=== PATIENT | male | born 1940 | race Caucasian/White ===

== ENCOUNTER 2016-10-15 16:11 | Inpatient (IN) ==
[2016-10-15] MEDS ORDERED: Aspirin 81 MG TAB.CHEW PO ONE (16:33)
--- NOTE | 2016-10-15 17:05 | Emergency Department Note ---
Disposition Clinical Impression: NSTEMI (non-ST elevated myocardial infarction), Elevated troponin Chest pain Qualifiers: Chest pain type: unspecified Qualified Code(s): R07.9 - Chest pain, unspecified Atrial fibrillation Qualifiers: Atrial fibrillation type: chronic Qualified Code(s): I48.2 - Chronic atrial fibrillation Disposition: Admitted As Inpatient Condition: Fair Time of Disposition: 19:41 Arrhythmia/Palpitations HPI - General Chief Complaint: ED Chest Pain Stated Complaint: afib RVR Time Seen by Provider: 10/15/16 16:28 Source: patient, EMS Mode of arrival: EMS Limitations: physical limitation Nursing Notes Reviewed: Yes Vital Signs Reviewed: Yes - History of Present Illness HPI Narrative: 76-year-old male history of esophageal cancer, hypertension, paroxysmal atrial fibrillation, and CAD status post PCI x2 () presents to the ED with chest pain and shortness of breath. Reports around 1300 yesterday he began to experience sharp chest pain with racing of the heart. Wasn't until today it became more severe that he called his friend who called the squad. He was seen and evaluated at [facility] complaining of heart palpitations with right- sided chest pain. He presented atrial fibrillation with rapid ventricular response. He presented tachycardic 126 with the elevated troponin 1.69. He is currently sinus rhythm with HR 70s. He is awake alert and oriented to person place and time. Denies any recent illness, fever, cough, nausea, vomiting. He was recently diagnosed with esophageal cancer on and had a port placed where he began his 1st chemo therapy session on Saturday. Dr. Burns is his oncologist. Reports a history of left knee replacement April 2016 in the left hip replacement in 2014. Denies any history of blood clots. He only takes a baby aspirin and denies any anticoagulants. Pt Subjective Complaint: rapid heart beat - Related Data Home Medications Medication Instructions Recorded Confirmed Albuterol Sulfate [Albuterol 2 puff IH QID PRN 09/18/16 10/15/16 Inhaler] Aspirin Enteric Coated [Aspirin EC] 81 mg PO DAILY 09/18/16 10/15/16 Bisacodyl [Laxative] 5 mg PO HS 09/18/16 10/15/16 Gabapentin [Neurontin] 800 mg PO TID 09/18/16 10/15/16 Hydrochlorothiazide 12.5 mg PO DAILY 09/18/16 10/15/16 Hydrophilic Cream [Basle] 1 appl TP AD 09/18/16 10/15/16 Ketotifen Fumarate 1 drop OP BID 09/18/16 10/15/16 Lisinopril [Zestril] 40 mg PO DAILY 09/18/16 10/15/16 Loratadine [Allergy Relief] 10 mg PO DAILY 09/18/16 10/15/16 Mirtazapine [Remeron] 15 mg PO QPM 09/18/16 10/15/16 Multivitamin [Multivitamins] 1 each PO DAILY 09/18/16 10/15/16 Peg 400/Hypromellose/Glycerin 1 drop BOTH EYES TID 09/18/16 10/15/16 [Visine Tired Eye Relief Drop] Sennosides [Senokot] 17.2 tab PO BID 09/18/16 10/15/16 Simethicone [Bicarsim] 160 mg PO TID PRN 09/18/16 10/15/16 Lactose-Reduced Food [Ensure 1 bottle PO BID 10/15/16 10/15/16 Liquid] Previous Rx's Medication Instructions Recorded Budesonide/Formoterol 160/4.5 2 puff IH BIDR #1 hfa.aer.ad 09/18/16 [Symbicort 160/4.5] Tamsulosin HCl [Flomax] 0.4 mg PO HS #30 cap.er.24h 09/18/16 Citalopram Hydrobromide [Celexa] 20 mg PO HS #30 tab 09/27/16 Zolpidem [Ambien] 5 mg PO HS #30 tablet 10/08/16 Allergies Allergy/AdvReac Type Severity Reaction Status Date / Time baclofen Allergy Rash Verified 10/15/16 16:12 Diclofenac Allergy Itching Verified 10/15/16 16:12 ibuprofen AdvReac Nausea Verified 10/15/16 16:12 All systems ED: reviewed and negative except as stated. Constitutional: Denies: fever, chills Cardiovascular: Reports: chest pain, palpitations, dyspnea on exertion Respiratory: Reports: dyspnea. Denies: cough, hemoptysis Gastrointestinal: Denies: abdominal pain, nausea, vomiting, diarrhea Genitourinary: Denies: urgency, dysuria Musculoskeletal: Denies: back pain Integumentary: Denies: rash, abrasion Neurological: Denies: headache Past Medical History - Past Medical History Attestation: Yes The following information was validated with the patient. Source: patient Medical history: Reports: arthritis, atrial fibrillation, COPD, coronary artery disease, glaucoma, hepatitis, hypertension, myocardial infarction, TIA Surgical history: Reports: carotid endarterectomy, hip replacement, knee replacement Psychiatric history: Reports: no psych history - Social History Smoking Status: Current some day smoker Smokeless Tobacco Status: No Alcohol use: Reports: none Drug use: Reports: none Physical Exam - General Limitations: physical limitation General appearance: alert, in no apparent distress, cachectic - Head Head exam: atraumatic, normocephalic, normal inspection - Eye Eye exam: Present: normal appearance, PERRL, EOMI - ENT ENT exam: normal exam, normal oropharynx, mucous membranes moist - Neck Neck exam: Present: normal inspection, full ROM, trachea midline - Chest Chest inspection: Present: normal inspection, symmetric chest wall rise, other ( Port in the right chest wall, scar is healing well without any discharge or erythema) - Respiratory Respiratory exam: Present: normal lung sounds bilaterally. Absent: respiratory distress, wheezes - Cardiovascular Cardiovascular exam: Present: normal rhythm, irregular rhythm, normal heart sounds - Abdominal Exam Abdominal exam: Present: soft, Non-Tender, normal bowel sounds. Absent: tenderness, distention, guarding, rebound, rigidity - Extremities Exam Extremities exam: Present: normal inspection, full ROM, normal capillary refill. Absent: tenderness, pedal edema, calf tenderness - Back Exam Back exam: Present: normal inspection, full ROM. Absent: tenderness, CVA tenderness (R), CVA tenderness (L) - Neurological Exam Neurological exam: Present: alert, oriented X3 - Psychiatric Psychiatric exam: Present: normal affect, normal mood - Skin Skin exam: Present: warm, dry, intact, normal color Course Course Narrative: 76-year-old male history of atrial fibrillation not on anticoagulants as well as history of CAD status post 2 PCI presents to the ED from the [facility] for chest pain and atrial fibrillation with RVR. Upon initial presentation he has converted spontaneously to sinus rhythm with occasional supra ventricular premature complexes and a possible right ventricular conduction delay. His initial troponin was reported 1.69. He appears on some mild discomfort and reports shortness of breath. He has a history of esophageal cancer and recently underwent chemotherapy with Dr. Denis العلي afebrile here. Heart rate in the 70s. Chest pain workup initiated. He would likely needed admission. - Reevaluation(s) Reevaluation #1: His troponin is elevated 2.05. Continues out some chest discomfort. Aspirin is given. Posterior EKG performed without any significant ST changes. He continues to remain a sinus rhythm. Will consult with interventional cardiology regarding elevation in troponin and deeply inverted T waves and ST depression. Impression is chest pain, NSTEMI, elevated troponin, atrial fibrillation c RVR, history of CAD, esophageal cancer. Patient is in agreement with plan. Time: 18:50 - Consultations Consultation #1: My attending Dr. Silver spoke to Dr. Cutler interventional radiology regarding elevation in his troponin. flue dust laborer not initiated. Recommend heparin drip and admission for elevated troponin and chest pain R/O ACS. Time: 19:00 Consultation #2: Spoke with on-call hospitalist valerio Vergara to admit for chest pain, elevated troponin, NSTEMI, atrial fibrillation. No further orders at this time Time: 19:42 Vital Signs Temperature 98.5 F 10/15/16 16:15 Pulse Rate 67 10/15/16 16:15 Respiratory Rate 22 10/15/16 16:15 Blood Pressure 153/81 10/15/16 16:15 O2 Sat by Pulse Oximetry 96 10/15/16 16:15 Temperature 98.4 F 10/15/16 22:58 Pulse Rate 58 10/15/16 22:58 Respiratory Rate 16 10/15/16 22:58 Blood Pressure 155/83 10/15/16 22:58 O2 Sat by Pulse Oximetry 96 10/15/16 22:58 Oxygen Delivery Oxygen Delivery Nasal Cannula Arrhythmia/Palpitations - Medical Records Medical records reviewed: Yes I reviewed the patient's medical records. - Lab Data Lab results reviewed: Yes I reviewed the patient's lab results. Result diagrams: 10/15/16 17:27 10/15/16 17:27 Lab Results 10/15/16 10/15/16 10/15/16 Range/Units 17:27 17:27 17:27 WBC (4.3-11.1) K/mcL RBC (4.19-5.50) M/mcL Hgb (12.9-16.9) g/dL Hct (37.5-50.1) % MCV (83.0-100.0) fL MCH (28.0-33.3) pg MCHC (31.6-35.5) g/dL RDW (11.5-14.5) % Plt Count (140-400) K/mcL MPV (9.4-12.4) fL Immature Gran % (0-4) % Seg Neutrophils % % Lymphocytes % % Monocytes % % Eosinophils % % Basophils % % Neutrophils # (1.6-8.9) K/mcL Lymphocytes # (0.6-4.6) K/mcL Monocytes # (0.0-1.3) K/mcL Eosinophils # (0.0-0.6) K/mcL Basophils # (0.0-0.2) K/mcL Immature Plt Fraction (1.1-6.1) % PT 12.2 H (9.4-12.1) Seconds INR 1.1 APTT 25.8 L (26.0-36.0) Seconds Sodium (136-145) mEq/L Potassium (3.5-4.5) mEq/L Chloride (98-109) mEq/L Carbon Dioxide (19-29) mEq/L BUN (8-26) mg/dL Creatinine (0.72-1.25) mg/dL Est GFR ( Amer) (> 60) Est GFR (Non-Af Amer) (> 60) BUN/Creatinine Ratio (6-26) Glucose (70-99) mg/dL Calculated Osmolality (280-300) Calcium (8.6-10.8) mg/dL Total Bilirubin 1.1 (0.2-1.2) mg/dL Direct Bilirubin 0.4 (0.0-0.5) mg/dL Indirect Bilirubin 0.7 (0.0-1.2) mg/dL AST 67 H (5-34) Units/L ALT 55 (0-55) Units/L Alkaline Phosphatase 58 (38-126) Units/L Troponin I (0-0.03) ng/mL B-Natriuretic Peptide 888 H (0-100) pg/mL Serum Total Protein 7.0 (6.0-8.3) g/dL Albumin 3.0 L (3.5-5.0) g/dL Globulin 4.0 H (2.4-3.5) g/dL Albumin/Globulin Ratio 0.8 L (1.1-2.2) Lipase (8-78) Units/L 10/15/16 10/15/16 10/15/16 Range/Units 17:27 17:27 17:27 WBC 8.5 (4.3-11.1) K/mcL RBC 4.27 (4.19-5.50) M/mcL Hgb 14.4 (12.9-16.9) g/dL Hct 40.2 (37.5-50.1) % MCV 94.1 (83.0-100.0) fL MCH 33.7 H (28.0-33.3) pg MCHC 35.8 H (31.6-35.5) g/dL RDW 15.5 H (11.5-14.5) % Plt Count 84 L (140-400) K/mcL MPV 13.1 H (9.4-12.4) fL Immature Gran % 0.5 (0-4) % Seg Neutrophils % 57.2 % Lymphocytes % 33.2 % Monocytes % 8.9 % Eosinophils % 0.1 % Basophils % 0.1 % Neutrophils # 4.9 (1.6-8.9) K/mcL Lymphocytes # 2.8 (0.6-4.6) K/mcL Monocytes # 0.8 (0.0-1.3) K/mcL Eosinophils # 0.0 (0.0-0.6) K/mcL Basophils # 0.0 (0.0-0.2) K/mcL Immature Plt Fraction 18.6 H (1.1-6.1) % PT (9.4-12.1) Seconds INR APTT (26.0-36.0) Seconds Sodium 126 L (136-145) mEq/L Potassium 4.0 (3.5-4.5) mEq/L Chloride 99 (98-109) mEq/L Carbon Dioxide 22 (19-29) mEq/L BUN 14 (8-26) mg/dL Creatinine 0.99 (0.72-1.25) mg/dL Est GFR ( Amer) > 60 (> 60) Est GFR (Non-Af Amer) > 60 (> 60) BUN/Creatinine Ratio 14 (6-26) Glucose 106 H (70-99) mg/dL Calculated Osmolality 263 L (280-300) Calcium 8.9 (8.6-10.8) mg/dL Total Bilirubin (0.2-1.2) mg/dL Direct Bilirubin (0.0-0.5) mg/dL Indirect Bilirubin (0.0-1.2) mg/dL AST (5-34) Units/L ALT (0-55) Units/L Alkaline Phosphatase (38-126) Units/L Troponin I (0-0.03) ng/mL B-Natriuretic Peptide (0-100) pg/mL Serum Total Protein (6.0-8.3) g/dL Albumin (3.5-5.0) g/dL Globulin (2.4-3.5) g/dL Albumin/Globulin Ratio (1.1-2.2) Lipase 79 H (8-78) Units/L 10/15/16 Range/Units 17:27 WBC (4.3-11.1) K/mcL RBC (4.19-5.50) M/mcL Hgb (12.9-16.9) g/dL Hct (37.5-50.1) % MCV (83.0-100.0) fL MCH (28.0-33.3) pg MCHC (31.6-35.5) g/dL RDW (11.5-14.5) % Plt Count (140-400) K/mcL MPV (9.4-12.4) fL Immature Gran % (0-4) % Seg Neutrophils % % Lymphocytes % % Monocytes % % Eosinophils % % Basophils % % Neutrophils # (1.6-8.9) K/mcL Lymphocytes # (0.6-4.6) K/mcL Monocytes # (0.0-1.3) K/mcL Eosinophils # (0.0-0.6) K/mcL Basophils # (0.0-0.2) K/mcL Immature Plt Fraction (1.1-6.1) % PT (9.4-12.1) Seconds INR APTT (26.0-36.0) Seconds Sodium (136-145) mEq/L Potassium (3.5-4.5) mEq/L Chloride (98-109) mEq/L Carbon Dioxide (19-29) mEq/L BUN (8-26) mg/dL Creatinine (0.72-1.25) mg/dL Est GFR ( Amer) (> 60) Est GFR (Non-Af Amer) (> 60) BUN/Creatinine Ratio (6-26) Glucose (70-99) mg/dL Calculated Osmolality (280-300) Calcium (8.6-10.8) mg/dL Total Bilirubin (0.2-1.2) mg/dL Direct Bilirubin (0.0-0.5) mg/dL Indirect Bilirubin (0.0-1.2) mg/dL AST (5-34) Units/L ALT (0-55) Units/L Alkaline Phosphatase (38-126) Units/L Troponin I 2.05 H* (0-0.03) ng/mL B-Natriuretic Peptide (0-100) pg/mL Serum Total Protein (6.0-8.3) g/dL Albumin (3.5-5.0) g/dL Globulin (2.4-3.5) g/dL Albumin/Globulin Ratio (1.1-2.2) Lipase (8-78) Units/L - Radiology Data Radiology results reviewed: Yes I reviewed the patient's radiology results. - EKG Data EKG attestation: Yes I reviewed and interpreted this EKG. EKG results narrative: EKG performed 1619, reveals sinus rhythm with frequent supraventricular premature complexes 63 bpm and a possible right ventricular conduction delay. There are significant ST depressions in V4 V5 with inversion of the T waves throughout the precordial leads. This is similar to old EKG performed 2013 which has a consistent finding of ST depression T-wave inversion. Repeat EKG with posterior leads performed [address] not reveal any ST elevation. Attestation Statement - Attestation Attestation: 76-year-old male presents for concerns of atrial fibrillation with RVR and an elevated troponin. Patient was initially evaluated at the [facility] found to have an elevated of his troponin to 1.68. Upon arrival to the emergency department the patient's heart rate converted to a sinus rhythm and his chest pain resolved. Vital signs stable in the emergency department. Patient had a repeat troponin which was elevated to 2.05. Patient's ECG showed T-wave inversions in the anterior lateral leads however this is unchanged from previous and is likely due to the patient's LVH. I contacted Dr. Cutler the interventional list who reviewed the ECG and agreed with the interpretation. Ultrasound recommended heparin, which was ordered after with him. Patient was comfortable with the plan for admission to the hospital for continuation of care.
[2016-10-15 17:36] LABS: Eosinophils % 0.1 %; Hemoglobin 14.4 g/dL (12.9-16.9); Red Cell Distribution Width 15.5 % (11.5-14.5)
[2016-10-15 17:38] LABS: Basophils % 0.1 %; Hematocrit 40.2 % (37.5-50.1); Immature Granulocytes % 0.5 % (0-4); Immature Platelets 18.6 % (1.1-6.1); Lymphocytes # 2.8 K/mcL (0.6-4.6); Lymphocytes % 33.2 %; Mean Corpuscular HGB Conc 35.8 g/dL (31.6-35.5); Mean Corpuscular Hemoglobin 33.7 pg (28.0-33.3); Mean Corpuscular Volume 94.1 fL (83.0-100.0); Mean Platelet Volume 13.1 fL (9.4-12.4); Monocytes # 0.8 K/mcL (0.0-1.3); Monocytes % 8.9 %; Neutrophils # 4.9 K/mcL (1.6-8.9); Platelet Count 84 K/mcL (140-400); Red Blood Count 4.27 M/mcL (4.19-5.50); Segmented Neutrophils % 57.2 %
[2016-10-15 17:42] LABS: INR 1.1; Prothrombin Time 12.2 Seconds (9.4-12.1)
[2016-10-15 17:45] LABS: Activated Partial Thrombo Time 25.8 Seconds (26.0-36.0)
[2016-10-15 17:50] LABS: BUN/Creatinine Ratio 14 (6-26); Blood Urea Nitrogen 14 mg/dL (8-26); Calcium 8.9 mg/dL (8.6-10.8); Carbon Dioxide 22 mEq/L (19-29); Chloride 99 mEq/L (98-109); Glucose 106 mg/dL (70-99); Osmolality,Calculated 263 (280-300); eGFR For African Americans > 60 (> 60); eGFR For Non-African Americans > 60 (> 60)
[2016-10-15 17:51] LABS: Albumin/Globulin Ratio 0.8 (1.1-2.2); Bilirubin,Direct 0.4 mg/dL (0.0-0.5); Bilirubin,Indirect 0.7 mg/dL (0.0-1.2); Bilirubin,Total 1.1 mg/dL (0.2-1.2)
[2016-10-15 17:52] LABS: Sodium 126 mEq/L (136-145)
[2016-10-15] MEDS ORDERED: *HR* Heparin 5,000 UNIT/ML VIAL IVP ONE (18:52)
[2016-10-15] MEDS ORDERED: *HR* Heparin 5,000 UNIT/ML VIAL IVP PRN ×2 (18:52)
[2016-10-15] MEDS ORDERED: Heparin 25,000 UNIT/500 ML D5W 25,000 UNIT/500 ML MLS IVC SCH (19:00)
[2016-10-16 00:45] LABS: Bilirubin,Urine Negative (Negative); Blood,Urine Negative (Negative); Clarity,Urine Clear (Clear); Color,Urine Yellow (Yellow); Glucose,Urine (UA) Normal (Normal); Ketones,Urine Negative (Negative); Leukocyte Esterase,Urine Negative (Negative); Nitrite,Urine Negative (Negative); PH,Urine 7.5 pH Units (5.0-8.0); Protein,Urine 30 mg/dL (Neg-Trace); Specific Gravity,Urine 1.015 (1.010-1.025); Urobilinogen,Urine Normal (Normal)
[2016-10-16 00:48] LABS: Bacteria,Urine None Seen per hpf (None-Few); Hyaline Casts,Urine None Seen per lpf (None-Few); RBC,Urine 0-3 per hpf (0-3); Squamous Epithelial Cell,Urine Moderate per lpf (None-Few); WBC,Urine 0-3 per hpf (0-3)
[2016-10-16] MEDS ORDERED: *HR* Morphine 2 MG/ML SYRINGE IVP PRN ×2 (01:37→02:00)
[2016-10-16] MEDS ORDERED: Nitroglycerin 25 MG/250 ML INFUS..BTL IVC SCH (01:45)
--- NOTE | 2016-10-16 01:52 | Internal Med History&Physical ---
<Angie German Linn - Last Filed: 10/16/16 01:43> Date of Encounter: 10/16/16 Time of Encounter: 01:43 Assessment and Plan (1) NSTEMI (non-ST elevated myocardial infarction) Current visit: Yes Status: Acute heparin drip nitro drip titrate for pain, keeping systolic >110 morphine for pain trop 2.05, will trend repeat PT/INR check Mg NPO consult to cardiology (2) Atrial fibrillation Current visit: Yes Status: Acute s/p ablation in 2004 paroxysmal supportive care Qualifiers: Atrial fibrillation type: chronic Qualified Code(s): I48.2 - Chronic atrial fibrillation (3) Esophageal cancer Current visit: Yes Status: Acute Qualifiers: Malignant neoplasm of esophagus location: unspecified location Qualified Code(s): C15.9 - Malignant neoplasm of esophagus, unspecified (4) Hyponatremia Current visit: Yes Status: Acute Na126 osmo: 263 chronic, close to baseline likely secondary to cancer (5) Elevated troponin Current visit: Yes Status: Acute 2.05, will trend (6) Chest pain Current visit: Yes Status: Acute Qualifiers: Chest pain type: unspecified Qualified Code(s): R07.9 - Chest pain, unspecified (7) HTN (hypertension) Current visit: Yes Status: Acute (8) CAD (coronary artery disease) Current visit: Yes Status: Acute (9) CVA (cerebral vascular accident) Current visit: Yes Status: Acute Internal Medicine - H&P: HPI Chief complaint: chest pain Admitted From: Home Plans for Post Hospital Care: Home History of present illness: Mr. Post is a 76 year old male presents with chest pain. PMHx of paroxysmal afib, CVA, CHF, PCIx2, HTN,CAD, recently diagnosed with esophageal cancer last week with port placement and started on chemotherapy saturday. Pt c/o severe 10/ 10 pressure like chest pain with radiation to left shoulder and shortness of breath. Pt states this started saturday afternoon around 1pm while at home. Pt thought pain would improve on its own, was relieved by nothing and was worse saturday morning. At that time pt measured BP and HR at home. He states his blood pressure was low and heart rate was high at that time and was directed to go to the ER. Pt states he is still currently having some CP and nausea. Pt denies syncopal episode, trauma/falls, headache, change in vision SOB, vomiting , numbness/tingling, weakness or loss off function. Past Med Surg Social Fam HX - Past Medical History Medical history: arthritis, atrial fibrillation, CHF, COPD, coronary artery disease, CVA, glaucoma, hepatitis, hypertension, myocardial infarction, TIA Psychiatric history: no psych history - Past Surgical History Surgical History: carotid endarterectomy, hip replacement, knee replacement - Social History Smoking Status: Former smoker (quite smoking about one week ago) Packs per day: 1ppd Smokeless Tobacco Status: No Alcohol use: none Drug use: none Occupational status: retired Current living situation: Home - Independent Activity Level: Uses cane/walker Recent Out of Country Travel Within the Last 8 Weeks: No - Family History Father Name: Meliza Post Age at : 61 Cause of : heart attack Hx Family Cardiac Disorders: Yes Internal Medicine - H&P: Meds Albuterol Sulfate [Albuterol Inhaler] 2 puff IH QID PRN 09/18/16 [History] Aspirin Enteric Coated [Aspirin EC] 81 mg PO DAILY 09/18/16 [History] Bisacodyl [Laxative] 5 mg PO HS 09/18/16 [History] Budesonide/Formoterol 160/4.5 [Symbicort 160/4.5] 2 puff IH BIDR #1 hfa.aer.ad 09/18/16 [Rx] Gabapentin [Neurontin] 800 mg PO TID 09/18/16 [History] Hydrochlorothiazide 12.5 mg PO DAILY 09/18/16 [History] Hydrophilic Cream [Basle] 1 appl TP AD 09/18/16 [History] Ketotifen Fumarate 1 drop OP BID 09/18/16 [History] Lisinopril [Zestril] 40 mg PO DAILY 09/18/16 [History] Loratadine [Allergy Relief] 10 mg PO DAILY 09/18/16 [History] Mirtazapine [Remeron] 15 mg PO QPM 09/18/16 [History] Multivitamin [Multivitamins] 1 each PO DAILY 09/18/16 [History] Peg 400/Hypromellose/Glycerin [Visine Tired Eye Relief Drop] 1 drop BOTH EYES TID 09/18/16 [History] Sennosides [Senokot] 17.2 tab PO BID 09/18/16 [History] Simethicone [Bicarsim] 160 mg PO TID PRN 09/18/16 [History] Tamsulosin HCl [Flomax] 0.4 mg PO HS #30 cap.er.24h 09/18/16 [Rx] Citalopram Hydrobromide [Celexa] 20 mg PO HS #30 tab 09/27/16 [Rx] Zolpidem [Ambien] 5 mg PO HS #30 tablet 10/08/16 [Rx] Lactose-Reduced Food [Ensure Liquid] 1 bottle PO BID 10/15/16 [History] Allergies baclofen Allergy (Verified 10/15/16 16:12) Rash Diclofenac Allergy (Verified 10/15/16 16:12) Itching ibuprofen Adverse Reaction (Verified 10/15/16 16:12) Nausea All Systems PM: A 10-system review of systems was performed and is negative for pertinent findings except as documented above in the HPI. - Constitutional Constitutional: no chills, no excessive sweating, no fatigue, no falls, no night sweats, no weakness - EENT Eyes: no blurry vision, no change in vision, no loss of vision - Cardiovascular Cardiovascular ROS IM: chest pain, dyspnea, dyspnea on exertion, irregular heart rhythm, palpitations, no diaphoresis, no edema, no lightheadedness, no syncope - Respiratory Respiratory: no cough, no hemoptysis, no pain on inspiration - Gastrointestinal Gastrointestinal: belching, nausea, no hematemesis, no vomiting - Genitourinary Genitourinary ROS male: as per HPI - Musculoskeletal Musculoskeletal ROS IM: no muscle weakness, no myalgias, no numbness, no tingling - Integumentary Integumentary IM: as per HPI - Neurological Neurological ROS: no confusion, no dizziness, no focal weakness, no frequent falls, no headache(s), no loss of vision, no numbness, no tingling - Endocrine Endocrine IM: as per HPI - Hematologic/Lymphatic Hematologic/Lymphatic: as per HPI - Allergic/Immunologic Allergic/Immunologic: as per HPI - Constitutional Vitals: Temp Pulse Resp BP Pulse Ox 98.4 F 58 16 155/83 96 10/15/16 22:58 10/15/16 22:58 10/15/16 22:58 10/15/16 22:58 10/15/16 22:58 General appearance: Present: cachectic, A&O X 3, no acute distress, answers questions appropriately - Head Head exam: Present: atraumatic, normocephalic - Eye Eye exam: Present: EOMI, PERRL, conjuntiva pink, sclera anicteric Pupils: Present: normal accommodation - ENT ENT exam: Present: mucous membranes moist - Neck Neck exam general surgery: Present: full ROM - Respiratory Respiratory exam: Present: CTAB. Absent: chest wall tenderness, rales, respiratory distress, rhonchi, wheezes, tachypnea - Cardiovascular Cardiovascular exam: Present: irregular rhythm - GI/Abdominal GI/Abdominal exam: Present: normal bowel sounds, soft, no peritoneal signs. Absent: guarding, rebound, rigid - Extremities Exam Extremities exam: Present: normal capillary refill, warm. Absent: calf tenderness, pedal edema Additional comments: irregular radial pulse - Incison Incision: Present: clean and dry, intact Comments: Port site on L chest healing C/D/I - Neurological Exam Neurological exam: Present: CN II-XII intact, oriented X3. Absent: no focal deficits, facial droop, speech deficit - Psychiatric Psychiatric exam: Present: normal affect, normal mood - Skin Skin exam: Present: dry, warm Internal Med - H&P Results - Labs CBC & Chem 7: 10/15/16 17:27 10/15/16 17:27 Labs: Urine 10/16/16 Range/Units 00:01 Urine Color Yellow (Yellow) Urine Clarity Clear (Clear) Urine pH 7.5 (5.0-8.0) pH Units Ur Specific [place] 1.015 (1.010-1.025) Urine Protein 30 H (Neg-Trace) mg/dL Urine Glucose (UA) Normal (Normal) mg/dL <Leo Matson - Last Filed: 10/16/16 03:10> - EENT Nose, mouth and throat: no sinus pressure, no sore throat - Cardiovascular Cardiovascular ROS IM: chest pain, dyspnea, dyspnea on exertion, palpitations, no paroxysmal nocturnal dyspnea - Respiratory Respiratory: no cough, no hemoptysis, no chest congestion - Gastrointestinal Gastrointestinal: no hematemesis, no hematochezia, no melena - Constitutional Vitals: Temp Pulse Resp BP Pulse Ox 98.4 F 58 16 155/83 96 10/15/16 22:58 10/15/16 22:58 10/15/16 22:58 10/15/16 22:58 10/15/16 22:58 General appearance: Present: cooperative, pleasant, no acute distress - Neck Neck exam general surgery: Present: full ROM, supple, trachea midline - Expanded Neck Exam Neck exam: Absent: carotid bruit - Respiratory Respiratory exam: Present: CTAB. Absent: chest wall tenderness, rales, rhonchi , wheezes - Cardiovascular Cardiovascular exam: Present: bradycardia, distant heart sounds, +S1, +S2. Absent: diastolic murmur, JVD, systolic murmur - GI/Abdominal GI/Abdominal exam: Present: soft. Absent: tenderness - Back Exam Back exam: Present: normal inspection. Absent: CVA tenderness (L), CVA tenderness (R) - Neurological Exam Neurological exam: Present: alert, CN II-XII intact, oriented X3, no focal deficits - Skin Skin exam: Present: dry, warm. Absent: rash Internal Med - H&P Results - Labs CBC & Chem 7: 10/15/16 17:27 10/15/16 17:27 Labs: Urine 10/16/16 Range/Units 00:01 Urine Color Yellow (Yellow) Urine Clarity Clear (Clear) Urine pH 7.5 (5.0-8.0) pH Units Ur Specific [place] 1.015 (1.010-1.025) Urine Protein 30 H (Neg-Trace) mg/dL Urine Glucose (UA) Normal (Normal) mg/dL - EKG Data -: EKG Interpreted by Myself EKG shows normal: sinus rhythm - EKG Data Prior EKG available for review: yes When compared to previous EKG: there are significant changes EKG comments: 10/16/16 03:03 Sinus rhythm with PAC's; high voltage in lateral leads with flipped T-waves and ST-T depression - Diagnostic Studies Chest x-ray Status: image reviewed by me (negative) - Attending Attestation I discussed the patient [place], PMH, ROS, lab data, and exam findings with Dr. German. I then saw and examined the patient independently as well. Patient confirms the history provided by Dr. German. On my questioning, he confirms that his CP was similar to that of his previous [place]. He has minimal CP now. He denies any pleuritic CP or hemoptysis. He will be treated with NTG gtt, heparin gtt, and Morphine PRN CP. We'll keep him on STATIN. NO BB due to bradycardia. We'll consult cardiology. If he is a PCI candidate, he may need bare metal stent in the event he may need esophageal surgery in the near future. Other than my comments above and noted exam findings, I agree with Dr. German's assessment and plan.
[2016-10-16 03:26] LABS: Hematocrit 39.9 % (37.5-50.1); Hemoglobin 13.8 g/dL (12.9-16.9); Mean Corpuscular HGB Conc 34.6 g/dL (31.6-35.5); Mean Corpuscular Hemoglobin 32.9 pg (28.0-33.3); Red Blood Count 4.2 M/mcL (4.19-5.50); Red Cell Distribution Width 15.4 % (11.5-14.5)
[2016-10-16 03:28] LABS: INR 1.2; Prothrombin Time 13.2 Seconds (9.4-12.1)
[2016-10-16 03:39] LABS: BUN/Creatinine Ratio 18 (6-26); Blood Urea Nitrogen 17 mg/dL (8-26); Calcium 8.1 mg/dL (8.6-10.8); Carbon Dioxide 20 mEq/L (19-29); Chloride 100 mEq/L (98-109); Glucose 100 mg/dL (70-99); Magnesium 1.7 mg/dL (1.6-2.6); Osmolality,Calculated 266 (280-300); Potassium 3.9 mEq/L (3.5-4.5); Sodium 127 mEq/L (136-145); eGFR For African Americans > 60 (> 60); eGFR For Non-African Americans > 60 (> 60)
[2016-10-16] MEDS ORDERED: *HR* Promethazine 25 MG/ML VIAL IVP PRN (05:39)
[2016-10-16 06:13] LABS: Activated Partial Thrombo Time 91.5 Seconds (26.0-36.0)
--- NOTE | 2016-10-16 11:22 | Cardiology Consult Note ---
Date of Encounter: 10/16/16 Time of Encounter: 10:45 Assessment and Plan (1) NSTEMI (non-ST elevated myocardial infarction) Current Visit: Yes Status: Acute Troponins 2.05, 1.64, 1.42 EKG with evidence of T wave inversions in anterolateral leads, Left axis deviation, LVH ECHO pending Currently no chest pain and no longer requiring nitro drip Will consider adding Imdur should chest pain return Continue heparin drip for 48hours Continue morphine for pain Will increase Lipitor to 40mg Start ASA 81mg and Metoprolol XL 25mg Will not start Plavix due to relative risk given esophageal cancer and thrombocytopenia Cardiac diet (2) Chest pain Current Visit: Yes Status: Acute Patient denies chest pain at this time Patient weened off nitro drip Start Imdur should chest pain return Qualifiers: Chest pain type: chest pain due to myocardial ischemia Ischemic chest pain type: unspecified angina pectoris type Qualified Code(s): I20.9 - Angina pectoris, unspecified (3) Esophageal cancer Current Visit: Yes Status: Acute Follows with Dr. Burns Oncology following Qualifiers: Malignant neoplasm of esophagus location: unspecified location Qualified Code(s): C15.9 - Malignant neoplasm of esophagus, unspecified (4) CAD (coronary artery disease) Current Visit: Yes Status: Acute OR in 2012 or 2013 Patient had PCI x 2 stents placed at [place], [place] Qualifiers: Coronary Disease-Associated Artery/Lesion type: [place] artery [place] vs. transplanted heart: [place] heart Associated angina: angina presence unspecified Qualified Code(s): I25.10 - Atherosclerotic heart disease of [place] coronary artery without angina pectoris (5) HTN (hypertension) Current Visit: Yes Status: Acute Pressures stable at this time Continue to monitor Qualifiers: Hypertension type: essential hypertension Qualified Code(s): I10 - Essential (primary) hypertension Discussion w patient/family: The assessment and plan as outlined above was discussed with the patient and/or family members who expressed understanding and agreement. All questions were answered. Thank you for involving us in the care of your patient. Please call with any questions. History of Present Illness Consult date: 10/16/16 Requesting physician: Octavio Ash Consult reason: NSTEMI Chief complaint: chest pain, racing heart History of present illness: Mr. Post is a 76 year old male with past medical history significant for esophageal cancer, OR with PCI x 2 stents, CAD, paroxysmal afib, HTN, CHF, COPD , CVA, TIA, hepatitis, Left below elbow amputation who presented to [facility] ED 1 day ago with complaints of chest pain. Patient recently diagnosed with esophageal cancer and received first chemo treatment October 12. Patient states that October 14 he began having fatigue and chest pain. Location of pain was sub-sternal and right sternal chest. Pain 8/10. Patient admitted associated racing heart, palpitations, dyspnea. Denied diaphoresis. Patient is a former smoker of 64 years x 1ppd. His father of a heart attack at age 61. Patient was admitted and treated for NSTEMI. He was started on nitro drip, which has since been discontinued. He is on heparin drip. Patient admits fatigue, but denies chest pain at this time. Past Med Surg Social Fam HX - Past Medical History Medical history: arthritis, atrial fibrillation, CHF, COPD, coronary artery disease, CVA, glaucoma, hepatitis, hypertension, myocardial infarction, TIA Psychiatric history: no psych history - Past Surgical History Surgical History: carotid endarterectomy, hip replacement, knee replacement - Social History Smoking Status: Former smoker (quite smoking about one week ago) Packs per day: 1ppd Smokeless Tobacco Status: No Alcohol use: none Drug use: none - Family History Father Name: Meliza Post Age at : 61 Cause of : heart attack Hx Family Cardiac Disorders: Yes Medications and Allergies Albuterol Sulfate [Albuterol Inhaler] 2 puff IH QID PRN 09/18/16 [History] Aspirin Enteric Coated [Aspirin EC] 81 mg PO DAILY 09/18/16 [History] Bisacodyl [Laxative] 5 mg PO HS 09/18/16 [History] Budesonide/Formoterol 160/4.5 [Symbicort 160/4.5] 2 puff IH BIDR #1 hfa.aer.ad 09/18/16 [Rx] Gabapentin [Neurontin] 800 mg PO TID 09/18/16 [History] Hydrochlorothiazide 12.5 mg PO DAILY 09/18/16 [History] Hydrophilic Cream [[place]] 1 appl TP AD 09/18/16 [History] Ketotifen Fumarate 1 drop OP BID 09/18/16 [History] Lisinopril [Zestril] 40 mg PO DAILY 09/18/16 [History] Loratadine [Allergy Relief] 10 mg PO DAILY 09/18/16 [History] Mirtazapine [Remeron] 15 mg PO QPM 09/18/16 [History] Multivitamin [Multivitamins] 1 each PO DAILY 09/18/16 [History] Peg 400/Hypromellose/Glycerin [Visine Tired Eye Relief Drop] 1 drop BOTH EYES TID 09/18/16 [History] Sennosides [Senokot] 17.2 tab PO BID 09/18/16 [History] Simethicone [Bicarsim] 160 mg PO TID PRN 09/18/16 [History] Tamsulosin HCl [Flomax] 0.4 mg PO HS #30 cap.er.24h 09/18/16 [Rx] Citalopram Hydrobromide [Celexa] 20 mg PO HS #30 tab 09/27/16 [Rx] Zolpidem [Ambien] 5 mg PO HS #30 tablet 10/08/16 [Rx] Lactose-Reduced Food [Ensure Liquid] 1 bottle PO BID 10/15/16 [History] Allergies baclofen Allergy (Verified 10/15/16 16:12) Rash Diclofenac Allergy (Verified 10/15/16 16:12) Itching ibuprofen Adverse Reaction (Verified 10/15/16 16:12) Nausea All Systems Review: A 10-system review of systems was performed and is negative for pertinent findings except as documented above in the HPI. Physical Examination Vital Signs, Last 4 Hours Temp Pulse Resp BP Pulse Ox 10/16/16 10:20 97.6 F 65 16 161/103 94 L 10/16/16 08:40 96 General: Conversant, No Apparent Distress HEENT: Atraumatic, Normocephaly, Mucus Membranes Moist Neck: No JVD, Normal carotid pulses Cardiac: Reg Rate and Rhythm, Normal S1 and S2, No Murmur Lungs: Normal Breath Sounds, No Wheeze, Rales, Rhonchi Neuro: Alert and responsive, No focal deficits noted Abdomen: Soft, Non-Tender Skin: No rashes noted on visualized skin Musculoskeletal: No Chest Wall Tenderness Extremities: No Clubbing, No Cyanosis, No Edema, Normal Pulses, Other (Left below elbow amputation) Results 10/16/16 03:10 10/16/16 03:10 Lab Results 10/16/16 10/16/16 10/16/16 03:10 03:10 03:10 WBC 8.8 Hgb 13.8 Hct 39.9 Plt Count 85 L INR 1.2 APTT 91.5 H D Sodium Potassium Chloride Carbon Dioxide BUN Creatinine Glucose Calcium Magnesium Troponin I 1.64 H* 10/16/16 10/16/16 03:10 09:04 WBC Hgb Hct Plt Count INR APTT Sodium 127 L Potassium 3.9 Chloride 100 Carbon Dioxide 20 BUN 17 Creatinine 0.93 Glucose 100 H Calcium 8.1 L Magnesium 1.7 Troponin I 1.42 H* Consult Discharge Plan - Plan Referrals: Xu Brown MD [Partnered Physician] - 10/25/16 1:10 pm
[2016-10-16] MEDS ORDERED: Aspirin 81 MG TAB.CHEW PO SCH (11:45)
[2016-10-16] MEDS: Aspirin 81 MG TAB.CHEW PO SCH (13:30)
[2016-10-16] MEDS ORDERED: Simethicone 80 MG TAB.CHEW PO PRN (15:15)
--- NOTE | 2016-10-16 16:06 | Electrocardiograph Report ---
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
--- NOTE | 2016-10-16 17:33 | Electrocardiograph Report ---
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
[2016-10-16] MEDS ORDERED: MIRTAZAPINE 15 MG PO SCH (18:00)
--- NOTE | 2016-10-16 18:52 | Event Note ---
Date of Encounter: 10/16/16 Time of Encounter: 13:00 Patient was evaluated at the bedside. Currently reports no chest pain. No shortness of breath. He was admitted with non-ST elevation LA. He is currently on heparin drip. He was evaluated by cardiology and deemed not to be a good candidate for intervention. On exam he is in no acute distress. Heart regular rate rhythm S1-S2, lungs clear to auscultation bilaterally, extremities with no edema. Noted left forearm amputation. We will continue with heparin drip. Follow-up echocardiogram. Follow-up with cardiology.
[2016-10-16] MEDS: Budesonide/Formoterol 160/4.5 MDI IH SCH (20:43)
[2016-10-16] MEDS: Gabapentin 400 MG CAPSULE PO SCH (21:19)
[2016-10-16] MEDS: Artificial Tears SOLN 15 ML BOTTLE BOTH EYES SCH (21:22)
[2016-10-16] MEDS: Sennosides 8.6 MG TABLET PO SCH (21:23)
[2016-10-16] MEDS: (Ketotifen Fumarate [Ketotifen Fumarate] 1 DROP) OP SCH (21:23)
[2016-10-17 04:35] LABS: Basophils % 0.1 %; Immature Granulocytes % 0.3 % (0-4)
[2016-10-17 04:38] LABS: Eosinophils # 0.1 K/mcL (0.0-0.6); Eosinophils % 1.8 %; Immature Platelets 23.7 % (1.1-6.1); Lymphocytes # 2.6 K/mcL (0.6-4.6); Lymphocytes % 38.3 %; Mean Corpuscular HGB Conc 34.2 g/dL (31.6-35.5); Mean Corpuscular Hemoglobin 32.7 pg (28.0-33.3); Mean Corpuscular Volume 95.5 fL (83.0-100.0); Mean Platelet Volume 13.1 fL (9.4-12.4); Monocytes # 0.5 K/mcL (0.0-1.3); Monocytes % 7.4 %; Neutrophils # 3.5 K/mcL (1.6-8.9); Red Blood Count 3.98 M/mcL (4.19-5.50); Red Cell Distribution Width 15.5 % (11.5-14.5); Segmented Neutrophils % 52.1 %
[2016-10-17 04:42] LABS: Platelet Count 78 K/mcL (140-400)
[2016-10-17 04:55] LABS: BUN/Creatinine Ratio 32 (6-26); Calcium 8.3 mg/dL (8.6-10.8); Carbon Dioxide 24 mEq/L (19-29); Chloride 103 mEq/L (98-109); Glucose 94 mg/dL (70-99); Magnesium 1.7 mg/dL (1.6-2.6); Osmolality,Calculated 279 (280-300); Potassium 3.8 mEq/L (3.5-4.5); Sodium 132 mEq/L (136-145); eGFR For African Americans > 60 (> 60); eGFR For Non-African Americans > 60 (> 60)
[2016-10-17 05:07] LABS: Blood Urea Nitrogen 28 mg/dL (8-26)
[2016-10-17] MEDS: Budesonide/Formoterol 160/4.5 MDI IH SCH ×2 (08:05→21:04)
--- NOTE | 2016-10-17 09:35 | Cardiology Progress Note ---
Date of Encounter: 10/17/16 Time of Encounter: 08:30 Assessment and Plan (1) NSTEMI (non-ST elevated myocardial infarction) Current Visit: Yes Status: Acute 10/17/16 Currently on Heparin drip, will d/c at 19:00 today ECHO, pending at this time Continue Lipitor, ASA Patient not a candidate for intervention given esophageal cancer and thrombocytopenia 10/16/16 Troponins 2.05, 1.64, 1.42 EKG with evidence of T wave inversions in anterolateral leads, Left axis deviation, LVH ECHO pending Currently no chest pain and no longer requiring nitro drip Will consider adding Imdur should chest pain return Continue heparin drip for 48hours Continue morphine for pain Will increase Lipitor to 40mg Start ASA 81mg and Metoprolol XL 25mg Will not start Plavix due to relative risk given esophageal cancer and thrombocytopenia Cardiac diet (2) Chest pain Current Visit: Yes Status: Acute Patient denies chest pain at this time Patient weened off nitro drip Start Imdur should chest pain return Qualifiers: Chest pain type: chest pain due to myocardial ischemia Ischemic chest pain type: unspecified angina pectoris type Qualified Code(s): I20.9 - Angina pectoris, unspecified (3) Esophageal cancer Current Visit: Yes Status: Acute Follows with Dr. Burns Oncology following Qualifiers: Malignant neoplasm of esophagus location: unspecified location Qualified Code(s): C15.9 - Malignant neoplasm of esophagus, unspecified (4) CAD (coronary artery disease) Current Visit: Yes Status: Acute [place] in 2012 or 2013 Patient had PCI x 2 stents placed at [place], [place] Qualifiers: Coronary Disease-Associated Artery/Lesion type: [place] artery [place] vs. transplanted heart: [place] heart Associated angina: angina presence unspecified Qualified Code(s): I25.10 - Atherosclerotic heart disease of [place] coronary artery without angina pectoris (5) HTN (hypertension) Current Visit: Yes Status: Acute Pressures stable at this time Continue to monitor Qualifiers: Hypertension type: essential hypertension Qualified Code(s): I10 - Essential (primary) hypertension Discussion w patient/family: The assessment and plan as outlined above was discussed with the patient and/or family members who expressed understanding and agreement. All questions were answered. Thank you for involving us in the care of your patient. Please call with any questions. Subjective Principal diagnosis: NSTEMI Interval history: Patient states he feels much better today. He is resting comfortably in bed at the time of the patient interview. No chest pain or dyspnea. No longer requiring O2 supplementation. Patient ate breakfast, is voiding well. He admits constipation. Objective Vital Signs, Last 4 Hours Temp Pulse Resp BP Pulse Ox 10/17/16 08:05 14 97 10/17/16 07:53 97.9 F 58 16 124/63 95 General: Conversant, No Apparent Distress HEENT: Atraumatic, Normocephaly, Mucus Membranes Moist Neck: No JVD, Normal carotid pulses Cardiac: Reg Rate and Rhythm, Normal S1 and S2, No Murmur Lungs: Normal Breath Sounds, No Wheeze, Rales, Rhonchi Neuro: Alert and responsive, No focal deficits noted Abdomen: Soft, Non-Tender Skin: No rashes noted on visualized skin Musculoskeletal: No Chest Wall Tenderness Extremities: No Clubbing, No Cyanosis, No Edema, Normal Pulses, Other (Left below elbow amputation) Results 10/17/16 03:25 10/17/16 03:25 Lab Results 10/16/16 10/16/16 10/16/16 09:04 13:15 13:16 WBC Hgb Hct Plt Count APTT 58.6 H Sodium Potassium Chloride Carbon Dioxide BUN Creatinine Glucose Calcium Magnesium Troponin I 1.42 H* 1.31 H* 10/16/16 10/17/16 10/17/16 19:10 03:25 03:25 WBC 6.8 Hgb 13.0 Hct 38.0 Plt Count 78 L APTT 58.5 H Sodium 132 L Potassium 3.8 Chloride 103 Carbon Dioxide 24 BUN 28 H D Creatinine 0.87 Glucose 94 Calcium 8.3 L Magnesium 1.7 Troponin I - VTE Reasons for not Prescribing Prophylaxis: Not indicated-Anticoagulated or INR therapeutic Consult Discharge Plan - Plan Referrals: Xu Brown MD [Partnered Physician] - 10/25/16 1:10 pm
[2016-10-17] MEDS: Lisinopril 20 MG TABLET PO SCH (09:54)
[2016-10-17] MEDS: Aspirin 81 MG TAB.CHEW PO SCH (09:54)
[2016-10-17] MEDS: Gabapentin 400 MG CAPSULE PO SCH ×3 (09:54→20:13)
[2016-10-17] MEDS: hydroCHLOROthiazide 25 MG TABLET PO SCH (09:55)
[2016-10-17] MEDS: Loratadine 10 MG TABLET PO SCH (09:55)
[2016-10-17] MEDS: Sennosides 8.6 MG TABLET PO SCH ×2 (09:55→20:13)
[2016-10-17] MEDS: Artificial Tears SOLN 15 ML BOTTLE BOTH EYES SCH ×2 (09:56→17:37)
--- NOTE | 2016-10-17 10:26 | ECHO - Doppler Report ---
Echocardiogram Name: Eddi Post Date of Study: 10/16/2016 Date: 1940 Ht: 66.0 in Medical Record#: [id number] Age: 76 Wt: 122.0 lb Gender: Male BSA: 1.62 Order #: [id number] Location: [facility] Room #: 2NE19 Reading Physician: Darrel Fierro MD, [facility] Tick Inspector: Ute Garcia RDCS Ordering Physician: Leo Matson MD Primary Physician: [facility] Indications: NSTEMI Impressions: LVEF 55-60%. There is hypokinesis of the mid-apical inferolateral wall. All other segments demonstrate normal contractility. Normal right ventricular size and function. Mild mitral regurgitation. Unable to estimate RVSP due to lack of TR jet. Left Ventricular Wall Motion: Rest Echo Findings The apical lateral wall was hypokinetic. All other wall segments showed normal motion. Findings: Study Quality * Suboptimal echo windows. ECG Findings * Sinus bradycardia with PACs. Left Ventricle * LVEF 55-60%. There is hypokinesis of the mid-apical inferolateral wall. All other segments demonstrate normal contractility. * Normal LV size and wall thickness. * Indeterminate diastolic function. Right Ventricle * Normal right ventricular size and function. Left Atrium * Normal left atrial size. Right Atrium * Normal right atrial size. Aorta * Normally sized aortic root. Pericardium * There is no pericardial effusion present. IVC * The IVC is not dilated. Aortic Valve * Aortic valve not well visualized. Appears mildly sclerotic. * No aortic stenosis. * No aortic regurgitation. Mitral Valve * Mild mitral annular calcification * No mitral stenosis. * Mild mitral regurgitation. Tricuspid Valve * Tricuspid valve not well visualized. * No tricuspid stenosis. * Trace tricuspid regurgitation. * Unable to estimate RVSP due to lack of TR jet. Pulmonic Valve * Pulmonic valve not well visualized. * No pulmonic stenosis. * No pulmonic regurgitation. History Hypertension Family History of CAD History of CAD/PTCA Myocardial Infarction Congestive Heart Failure Measurements: BP: 134/ 81 2D Normal Values RVIDd: 2.48 cm IVSd: .77 cm 0.6 - 1.0 cm LVIDd: 5.27 cm 3.7 - 5.6 cm LVPWd: .84 cm 0.6 - 1.1 cm LVIDs: 2.87 cm 1.5 - 3.6 cm AO: 3.20 cm < 4.0 cm %FS: 45.50 cm >25 % LA volume: 35 Updated by Darrel Fierro MD, [facility] on 10/17/2016 10:20:42 AM electronically signed on 10/17/2016 10:21:16 AM with status of Final Wall Motion [place]: 1=Normal, 2=Hypokinesis, 3=Akinesis, 4=Dyskinesis, 5=Aneurysmal, 6=Hyperkinetic, X=Not Visualized (Blank)=Missing
[2016-10-17] MEDS: (Ketotifen Fumarate [Ketotifen Fumarate] 1 DROP) OP SCH ×2 (10:30→20:13)
--- NOTE | 2016-10-17 14:40 | Internal Med Progress Note ---
Date of Encounter: 10/17/16 Time of Encounter: 10:00 - Assessment and plan (1) CVA (cerebral vascular accident) Current Visit: Yes Status: Acute Assessment and plan: This diagnosis was entered wrong, there is no evidence of acute CVA, instead there is history of CVA, which is not acute. This document has been replaced with a complete progress note. Qualifiers: CVA mechanism: unspecified Qualified Code(s): I63.9 - Cerebral infarction, unspecified - Constitutional Vitals: Temp Pulse Resp BP Pulse Ox 98 F 72 16 108/64 93 L 10/17/16 12:18 10/17/16 12:18 10/17/16 12:18 10/17/16 12:18 10/17/16 12:18 General appearance: Present: cooperative, pleasant, no acute distress Internal Medicine: Result - Labs CBC & Chem 7: 10/18/16 02:20 10/18/16 02:20 Labs: Short CBC 10/17/16 Range/Units 03:25 WBC 6.8 (4.3-11.1) K/mcL Hgb 13.0 (12.9-16.9) g/dL Hct 38.0 (37.5-50.1) % Plt Count 78 L (140-400) K/mcL Neutrophils # 3.5 (1.6-8.9) K/mcL BMP 10/17/16 03:25 Sodium 132 L Potassium 3.8 Chloride 103 Carbon Dioxide 24 BUN 28 H D Creatinine 0.87 Glucose 94 Calcium 8.3 L - ABG Interpretation ABG results: PT/INR, D-dimer PT 13.2 Seconds (9.4-12.1) H 10/16/16 03:10 - VTE Reasons for not Prescribing Prophylaxis: Not indicated-Anticoagulated or INR therapeutic Consult Discharge Plan - Plan Referrals: Xu Brown MD [Partnered Physician] - 10/25/16 1:10 pm
[2016-10-17] MEDS: Mirtazapine 15 MG TABLET PO SCH (17:38)
--- NOTE | 2016-10-17 20:36 | Internal Med Progress Note ---
Date of Encounter: 10/17/16 Time of Encounter: 10:00 - Assessment and plan (1) CVA (cerebral vascular accident) Current Visit: Yes Status: Acute Assessment and plan: This diagnosis was entered wrong, there is no evidence of acute CVA, instead there is history of CVA, which is not acute. Qualifiers: CVA mechanism: unspecified Qualified Code(s): I63.9 - Cerebral infarction, unspecified (2) Esophageal cancer Current Visit: Yes Status: Acute Assessment and plan: Follow-up with oncology outpatient. Qualifiers: Malignant neoplasm of esophagus location: unspecified location Qualified Code(s): C15.9 - Malignant neoplasm of esophagus, unspecified (3) NSTEMI (non-ST elevated myocardial infarction) Current Visit: Yes Status: Acute Assessment and plan: I appreciate cardiology input. Conservative management. Continue with heparin. No intervention. (4) HTN (hypertension) Current Visit: Yes Status: Acute Assessment and plan: Continue oral antihypertensive medication. He is at high risk for morbidity and mortality and complications due to acute NV requiring currently treated with IV heparin drip which requires intensive coagulation parameters monitoring. Qualifiers: Hypertension type: essential hypertension Qualified Code(s): I10 - Essential (primary) hypertension - Subjective Interval history: Patient presented with chest pain, no has resolved, troponin was elevated he was diagnosed with non-ST elevation NV. Currently he reports 0/10 chest pain with no shortness of breath. - Constitutional Vitals: Temp Pulse Resp BP Pulse Ox 97.8 F 58 16 97/51 98 10/17/16 16:18 10/17/16 16:18 10/17/16 16:18 10/17/16 16:18 10/17/16 16:18 General appearance: Present: cooperative, pleasant, no acute distress - Eye Eye exam: Present: PERRL, conjuntiva pink, sclera anicteric Pupils: Present: PERRL - Respiratory Respiratory exam: Present: CTAB. Absent: accessory muscle use, rales, rhonchi, wheezes - Cardiovascular Cardiovascular exam: Present: RRR, +S1, +S2. Absent: diastolic murmur, gallop, rubs, systolic murmur - GI/Abdominal GI/Abdominal exam: Present: normal bowel sounds, soft, no peritoneal signs. Absent: distended, tenderness - Skin Skin exam: Present: dry, intact Internal Medicine: Result - Labs CBC & Chem 7: 10/17/16 03:25 10/17/16 03:25 Labs: Short CBC 10/17/16 Range/Units 03:25 WBC 6.8 (4.3-11.1) K/mcL Hgb 13.0 (12.9-16.9) g/dL Hct 38.0 (37.5-50.1) % Plt Count 78 L (140-400) K/mcL Neutrophils # 3.5 (1.6-8.9) K/mcL BMP 10/17/16 03:25 Sodium 132 L Potassium 3.8 Chloride 103 Carbon Dioxide 24 BUN 28 H D Creatinine 0.87 Glucose 94 Calcium 8.3 L - ABG Interpretation ABG results: PT/INR, D-dimer PT 13.2 Seconds (9.4-12.1) H 10/16/16 03:10 - VTE Reasons for not Prescribing Prophylaxis: Not indicated-Anticoagulated or INR therapeutic Consult Discharge Plan - Plan Referrals: Xu Brown MD [Partnered Physician] - 10/25/16 1:10 pm
[2016-10-18] MEDS: Artificial Tears SOLN 15 ML BOTTLE BOTH EYES SCH ×3 (02:38→17:30)
[2016-10-18 02:40] LABS: Basophils % 0.3 %; Immature Granulocytes % 0.4 % (0-4); Red Cell Distribution Width 15.8 % (11.5-14.5)
[2016-10-18 02:42] LABS: Eosinophils # 0.2 K/mcL (0.0-0.6); Eosinophils % 2.9 %; Hematocrit 36.2 % (37.5-50.1); Hemoglobin 12.4 g/dL (12.9-16.9); Immature Platelets 22.4 % (1.1-6.1); Lymphocytes # 2.9 K/mcL (0.6-4.6); Lymphocytes % 38.1 %; Mean Corpuscular HGB Conc 34.3 g/dL (31.6-35.5); Mean Corpuscular Hemoglobin 33.1 pg (28.0-33.3); Mean Corpuscular Volume 96.5 fL (83.0-100.0); Mean Platelet Volume 12.9 fL (9.4-12.4); Monocytes # 0.6 K/mcL (0.0-1.3); Monocytes % 7.6 %; Neutrophils # 3.8 K/mcL (1.6-8.9); Red Blood Count 3.75 M/mcL (4.19-5.50); Segmented Neutrophils % 50.7 %
[2016-10-18 02:56] LABS: Platelet Count 75 K/mcL (140-400)
[2016-10-18 03:02] LABS: BUN/Creatinine Ratio 32 (6-26); Blood Urea Nitrogen 30 mg/dL (8-26); Calcium 8.3 mg/dL (8.6-10.8); Carbon Dioxide 21 mEq/L (19-29); Chloride 104 mEq/L (98-109); Glucose 101 mg/dL (70-99); Osmolality,Calculated 278 (280-300); Potassium 4.1 mEq/L (3.5-4.5); Sodium 131 mEq/L (136-145); eGFR For African Americans > 60 (> 60); eGFR For Non-African Americans > 60 (> 60)
[2016-10-18] MEDS ORDERED: *HR* Enoxaparin 40 MG/0.4 ML SYRINGE SQ SCH (06:00)
[2016-10-18] MEDS: Budesonide/Formoterol 160/4.5 MDI IH SCH (07:52)
[2016-10-18] MEDS ORDERED: Metoprolol XL (24 HR) Succ 25 MG TAB.ER.24H PO SCH (09:00)
[2016-10-18] MEDS: hydroCHLOROthiazide 25 MG TABLET PO SCH (11:12)
[2016-10-18] MEDS: Aspirin 81 MG TAB.CHEW PO SCH (11:12)
[2016-10-18] MEDS: Gabapentin 400 MG CAPSULE PO SCH ×2 (11:13→17:30)
[2016-10-18] MEDS: Loratadine 10 MG TABLET PO SCH (11:13)
[2016-10-18] MEDS: Lisinopril 20 MG TABLET PO SCH (11:13)
[2016-10-18] MEDS: (Ketotifen Fumarate [Ketotifen Fumarate] 1 DROP) OP SCH (11:14)
[2016-10-18] MEDS: Sennosides 8.6 MG TABLET PO SCH (11:14)
[2016-10-18 15:01] VITALS: BP 114/61
[2016-10-18] MEDS: Mirtazapine 15 MG TABLET PO SCH (17:31)
--- NOTE | 2016-10-18 18:15 | Discharge Summary ---
Date of Encounter: 10/18/16 Time of Encounter: 18:12 - Discharge Diagnosis (1) Chest pain Priority: Secondary Status: Acute Qualifiers: Chest pain type: chest pain due to myocardial ischemia Ischemic chest pain type: unspecified angina pectoris type Qualified Code(s): I20.9 - Angina pectoris, unspecified (2) Esophageal cancer Priority: Secondary Status: Acute Qualifiers: Malignant neoplasm of esophagus location: unspecified location Qualified Code(s): C15.9 - Malignant neoplasm of esophagus, unspecified (3) HTN (hypertension) Priority: Secondary Status: Acute Qualifiers: Hypertension type: essential hypertension Qualified Code(s): I10 - Essential (primary) hypertension (4) NSTEMI (non-ST elevated myocardial infarction) Priority: Primary Status: Acute - Discharge Medications Prescriptions: Atorvastatin [Lipitor] 40 mg PO HS #30 tablet Metoprolol XL (24 HR) Succ [Toprol Xl] 25 mg PO DAILY #30 tab.er.24h Home Medications: Albuterol Sulfate [Albuterol Inhaler] 2 puff IH QID PRN 09/18/16 [History] Aspirin Enteric Coated [Aspirin EC] 81 mg PO DAILY 09/18/16 [History] Bisacodyl [Laxative] 5 mg PO HS 09/18/16 [History] Budesonide/Formoterol 160/4.5 [Symbicort 160/4.5] 2 puff IH BIDR #1 hfa.aer.ad 09/18/16 [Rx] Gabapentin [Neurontin] 800 mg PO TID 09/18/16 [History] Hydrochlorothiazide 12.5 mg PO DAILY 09/18/16 [History] Hydrophilic Cream [Basle] 1 appl TP AD 09/18/16 [History] Ketotifen Fumarate 1 drop OP BID 09/18/16 [History] Lisinopril [Zestril] 40 mg PO DAILY 09/18/16 [History] Loratadine [Allergy Relief] 10 mg PO DAILY 09/18/16 [History] Mirtazapine [Remeron] 15 mg PO QPM 09/18/16 [History] Multivitamin [Multivitamins] 1 each PO DAILY 09/18/16 [History] Peg 400/Hypromellose/Glycerin [Visine Tired Eye Relief Drop] 1 drop BOTH EYES TID 09/18/16 [History] Sennosides [Senokot] 17.2 tab PO BID 09/18/16 [History] Simethicone [Bicarsim] 160 mg PO TID PRN 09/18/16 [History] Tamsulosin HCl [Flomax] 0.4 mg PO HS #30 cap.er.24h 09/18/16 [Rx] Citalopram Hydrobromide [Celexa] 20 mg PO HS #30 tab 09/27/16 [Rx] Zolpidem [Ambien] 5 mg PO HS #30 tablet 10/08/16 [Rx] Lactose-Reduced Food [Ensure Liquid] 1 bottle PO BID 10/15/16 [History] Atorvastatin [Lipitor] 40 mg PO HS #30 tablet 10/18/16 [Rx] Metoprolol XL (24 HR) Succ [Toprol Xl] 25 mg PO DAILY #30 tab.er.24h 10/18/16 [ Rx] Diphenoxylate/Atropine [Lomotil 2.5 mg/0.025 mg] 2 each PO AD PRN #60 tablet [Rx] Allergies/Adverse Reactions: Allergies baclofen Allergy (Verified 10/15/16 16:12) Rash Diclofenac Allergy (Verified 10/15/16 16:12) Itching ibuprofen Adverse Reaction (Verified 10/15/16 16:12) Nausea Procedures/tests Complete & Pending: Procedures Performed prior 72 hours Category Date Time Status ECG 12 lead ECG [ECG] AM 0600 Y 10/17/16 06:00 Ordered EV echocardiogram Routine Y 10/16/16 03:11 Completed Date of admission: 10/15/16 20:05 [facility] Consults: 10/16/16 08:59 Consult to Cardiology [CONS] Stat Comment: Consulting Provider: Cardiology Krys Reason for Consult: NSTEMI Call Completed: Yes 10/17/16 14:28 Consult to Occupational Therapy [CONS] Routine Comment: Evaluate, develop and implement POC Consult to Physical Therapy [CONS] Routine Comment: Evaluate, develop and implement POC 10/17/16 17:07 Consult to Team Assistant [CONS] Routine Reason for SW Consult: Referral to ECF - Patient Status Disposition: Home, Self-Care Condition: Fair Functional capacity at discharge: uses cane/walker Overall status at discharge: patient is back to baseline - Discharge Instructions Follow Up With: Xu Brown MD [Partnered Physician] - 10/25/16 1:10 pm - Diet and Activity Activity: increase activity as tolerated Diet: low fat, low cholesterol, low salt diet Hospital course: Mr. Post is a 76 year old male who presents with chest pain. PMHx of paroxysmal afib, CVA, CHF, PCIx2, HTN,CAD, recently diagnosed with esophageal cancer last week with port placement and started on chemotherapy saturday. Pt c/o severe 10/10 pressure like chest pain with radiation to left shoulder and shortness of breath. Pt states this started saturday afternoon around 1pm while at home. Pt thought pain would improve on its own, was relieved by nothing and was worse saturday morning. During this admission troponin was elevated to as high as 2.04. EKG showed T- wave inversions. He was admitted to the medical service and treated with heparin drip. Cardiology was consulted. They recommended noninvasive medical management due to history of esophageal cancer and risk of bleeding. We started treatment with aspirin and statin. Patient's chest pain had resolved and troponin trended down. Echocardiogram showed ejection fraction of 55% with mild hypokinesis of the anterolateral wall. He will be discharged on maximal medical management including aspirin Lipitor metoprolol and lisinopril. He is currently medically stable for discharge home. - Time Spent with Patient Total time spent providing and/or coordinating discharge services: Greater than 30 minutes - Constitutional Vitals: Temp Pulse Resp BP Pulse Ox 97.8 F 73 14 114/61 97 10/18/16 14:59 10/18/16 14:59 10/18/16 14:59 10/18/16 14:59 10/18/16 14:59 General appearance: Present: cooperative, A&O X 3, pleasant, no acute distress - Eye Eye exam: Present: PERRL, conjuntiva pink, sclera anicteric Pupils: Present: PERRL - Respiratory Respiratory exam: Present: CTAB. Absent: accessory muscle use, rales, rhonchi, wheezes - Cardiovascular Cardiovascular exam: Present: RRR, +S1, +S2. Absent: diastolic murmur, gallop, rubs, systolic murmur - VTE Reasons for not Prescribing Prophylaxis: Not indicated-Anticoagulated or INR therapeutic
== END 2016-10-18 19:45 | disposition home or self-care (01) | DRG 281 ==
LOC: EMEROO 16:11 → SUATTDRO 20:05 → 2NENU 20:05
PROVIDERS: ADMIT Internal Medicine; ATTEND Internal Medicine

== ENCOUNTER 2017-01-16 15:57 | Inpatient (IN) ==
--- NOTE | 2017-01-16 16:15 | Emergency Department Note ---
Disposition Clinical Impression: Dyspnea Congestive heart failure Qualifiers: Congestive heart failure type: unspecified congestive heart failure type Congestive heart failure chronicity: unspecified congestive heart failure chronicity Qualified Code(s): I50.9 - Heart failure, unspecified Disposition: Admitted As Inpatient Condition: Good Time of Disposition: 18:05 General Adult HPI - General Chief complaint: ED Chest Pain Stated complaint: Chest pain Time Seen by Provider: 01/16/17 16:03 Source: patient, EMS Mode of arrival: EMS Limitations: no limitations Nursing Notes Reviewed: Yes Vital Signs Reviewed: Yes - History of Present Illness HPI Narrative: 76-year-old male history of CAD s/p stents, recent diagnosis of esophageal cancer undergoing current chemoradiation, hypertension, pack per day smoker presents to the ED via EMS from the [place] for chest pain and shortness of breath. He reportedly went to the [place] for his typical checkup. He was told to come here for acute heart failure as his BNP is 10,000. He denies any chest pain at this time. He was given one nitro in for baby aspirin at 1515. He is also received one dose of 10 mg Lasix. He reports difficulty in breathing worse since Saturday. He has a chronic cough and is unable to bring anything up. Denies any recent fevers or illness. Denies any abdominal pain, nausea, urinary symptoms or diarrhea. He has his cancer treatment here at [facility]. Reports last stress tests and heart catheterization several years ago. Pain Scale: 0 - Related Data Home Medications Medication Instructions Recorded Confirmed Albuterol Sulfate [Albuterol 2 puff IH QID PRN 09/18/16 01/16/17 Inhaler] Aspirin Enteric Coated [Aspirin EC] 81 mg PO DAILY 09/18/16 01/16/17 Bisacodyl [Laxative] 5 mg PO Q48H 09/18/16 01/16/17 Gabapentin [Neurontin] 800 mg PO TID 09/18/16 01/16/17 Hydrophilic Cream [Basle] 1 appl TP DAILY 09/18/16 01/16/17 Ketotifen Fumarate 1 drop OP BID 09/18/16 01/16/17 Lisinopril [Zestril] 40 mg PO DAILY 09/18/16 01/16/17 Loratadine [Allergy Relief] 10 mg PO DAILY 09/18/16 01/16/17 Mirtazapine [Remeron] 15 mg PO HS 09/18/16 01/16/17 Multivitamin [Multivitamins] 1 each PO DAILY 09/18/16 01/16/17 Peg 400/Hypromellose/Glycerin 1 drop BOTH EYES TID 09/18/16 01/16/17 [Visine Tired Eye Relief Drop] Sennosides [Senokot] 17.2 tab PO BID 09/18/16 01/16/17 Simethicone [Bicarsim] 160 mg PO TID PRN 09/18/16 01/16/17 Lactose-Reduced Food [Ensure 1 bottle PO 6XD 10/15/16 01/16/17 Liquid] Betamethasone Dipropionate 1 appl TP DAILY PRN 01/16/17 01/16/17 Carbamide Peroxide [Ear Drops] 4 drop OT DAILY 01/16/17 01/16/17 Clindamycin Phosphate [Cleocin T] 1 appl TP DAILY PRN 01/16/17 01/16/17 Diphenoxylate/Atropine [Lomotil 2 each PO QID PRN 01/16/17 01/16/17 2.5 mg/0.025 mg] Doxycycline Monohydrate [Mondoxyne 100 mg PO BID 01/16/17 01/16/17 Nl] Hydrocortisone 1% CREAM [Cortaid] 1 appl TP DAILY PRN 01/16/17 01/16/17 Latanoprost [Xalatan] 1 drop OP HS 01/16/17 01/16/17 Lidocaine Viscous Oral Soln 5 ml PO Q4H PRN 01/16/17 01/16/17 Lidocaine/Prilocaine [Emla] 1 appl TP AD PRN 01/16/17 01/16/17 Metoprolol [Lopressor] 12.5 mg PO BID 01/16/17 01/16/17 Oxycodone HCl [Oxaydo] 5 mg PO BID PRN 01/16/17 01/16/17 Pantoprazole Sodium [Protonix] 40 mg PO DAILY 01/16/17 01/16/17 Prochlorperazine Maleate 10 mg PO Q6H PRN 01/16/17 01/16/17 [Compazine] Saliva Substitute Combo No.3 4 spray MM QID 01/16/17 01/16/17 [Aquoral] Thiamine (B-1) [Vitamin B-1] 100 mg PO BID 01/16/17 01/16/17 Zolpidem [Ambien] 5 mg PO HS PRN 01/16/17 01/16/17 predniSONE [PredniSONE] 40 mg PO DAILY 01/16/17 01/16/17 traZODone [TraZODone] 50 - 100 mg PO HS PRN 01/16/17 01/16/17 Previous Rx's Medication Instructions Recorded Budesonide/Formoterol 160/4.5 2 puff IH BIDR #1 hfa.aer.ad 09/18/16 [Symbicort 160/4.5] Atorvastatin [Lipitor] 40 mg PO HS #30 tablet 10/18/16 Magic Mouthwash [Magic Mouthwash 10 ml PO QID PRN #240 ml 11/15/16 BLM] LORazepam [Ativan] 1 mg PO Q6H PRN #60 tablet 12/25/16 Ondansetron [Zofran] 8 mg PO Q8HR PRN #90 tablet 12/25/16 Tamsulosin HCl [Flomax] 0.4 mg PO HS #30 cap.er.24h 12/25/16 Allergies Allergy/AdvReac Type Severity Reaction Status Date / Time baclofen Allergy Rash Verified 12/18/16 09:36 cetuximab [From Erbitux] Allergy Hives Verified 12/18/16 09:36 Diclofenac Allergy Itching Verified 12/18/16 09:36 ibuprofen AdvReac Nausea Verified 12/18/16 09:36 All systems ED: reviewed and negative except as stated. Constitutional: Denies: fever, chills Cardiovascular: Reports: dyspnea on exertion. Denies: chest pain Respiratory: Reports: cough, dyspnea. Denies: wheezes Gastrointestinal: Denies: abdominal pain, nausea, vomiting Genitourinary: Denies: urgency, dysuria Musculoskeletal: Denies: back pain, neck pain Integumentary: Denies: rash, abrasion Neurological: Denies: headache, weakness, numbness Past Medical History - Past Medical History Attestation: Yes The following information was validated with the patient. Source: patient Medical history: Reports: arthritis, atrial fibrillation, CHF, COPD, coronary artery disease, CVA, glaucoma, hepatitis, hypertension, myocardial infarction, TIA Surgical history: Reports: carotid endarterectomy, hip replacement, knee replacement Psychiatric history: Reports: no psych history - Social History Smoking Status: Former smoker Smokeless Tobacco Status: No Alcohol use: Reports: none Drug use: Reports: none Physical Exam - General Limitations: no limitations General appearance: alert, in no apparent distress - Head Head exam: atraumatic, normocephalic, normal inspection - Eye Eye exam: Present: normal appearance, PERRL, EOMI - ENT ENT exam: normal exam, normal oropharynx, mucous membranes moist - Neck Neck exam: Present: normal inspection, full ROM, trachea midline - Chest Chest inspection: Present: normal inspection, symmetric chest wall rise. Absent : tenderness - Respiratory Respiratory exam: Present: normal lung sounds bilaterally. Absent: wheezes - Expanded Respiratory Exam Location: decreased breath sounds: Left - Cardiovascular Cardiovascular exam: Present: regular rate, normal rhythm, normal heart sounds - Abdominal Exam Abdominal exam: Present: soft, Non-Tender, normal bowel sounds. Absent: tenderness, distention, guarding, rebound, rigidity - Extremities Exam Extremities exam: Present: pedal edema (+2 symmetrical), other (Left arm amputation) - Back Exam Back exam: Present: normal inspection, full ROM. Absent: tenderness, CVA tenderness (R), CVA tenderness (L), vertebral tenderness - Neurological Exam Neurological exam: Present: alert, oriented X3 - Psychiatric Psychiatric exam: Present: normal affect, normal mood - Skin Skin exam: Present: warm, dry, intact, normal color Course Course Narrative: 76-year-old male presents with dyspnea from the [place]. He reportedly has been sure breath since Saturday. He went to the [place] for evaluation and was found to have a elevated BNP over 10,000. Prior to transfer here he received Nitro, Lasix, and 4 baby aspirin. Patient is currently chest pain free. He appears in no acute distress. [facility] does not reveal a trop[facility]. Will obtain a troponin and plan for admission for acute on chronic congestive heart failure and dyspnea. EKG was performing does not show any acute ischemic changes, there are converted T waves in the lateral leads that are consistent from EKG performed at the [place]. - Reevaluation(s) Reevaluation #1: Critical lab troponin 0.04. Patient has already received full dose aspirin. Plan for admission for heart failure, dyspnea and elevated troponin. Believe this elevated troponin is non-ischemic and likely secondary to the heart failure. Patient will be admitted for further evaluation and management. Time: 17:03 - Consultations Consultation #1: Spoke with on-call hospitalist valerio Weldon to admit for acute exacerbation for CHF , dyspnea, and elevated troponin. No further orders at this time. Agree that heparin does not need to be started at this time. Patient continues to be chest pain free. Time: 18:02 Vital Signs Temperature 98.1 F 01/16/17 16:01 Pulse Rate 78 01/16/17 16:01 Respiratory Rate 16 01/16/17 16:01 Blood Pressure 173/93 01/16/17 16:01 O2 Sat by Pulse Oximetry 93 01/16/17 16:01 Temperature 98.1 F 01/16/17 16:01 Pulse Rate 63 01/16/17 17:45 Respiratory Rate 16 01/16/17 18:17 Blood Pressure 171/86 01/16/17 18:17 O2 Sat by Pulse Oximetry 93 01/16/17 17:45 Oxygen Delivery Oxygen Delivery Room Air Medical Decision Making - MDM Narrative Medical decision making narrative: I examined this patient and my medical decision-making was reviewed with the MENTAL HEALTH SPECIALIST/PA/Advanced Practice Nurse/Resident Physician. I agree with the documented findings, disposition and treatment plan as described except to the extent set forth below. The patient sent from the [facility] for chest pain workup. Patient had what he describes as dyspnea did not really ever have any chest pain. They noticed that his BNP was elevated over 10,000, he had CHF on his chest x-ray they did give him aspirin and nitroglycerin and Lasix but he never had any chest pain there according them. I do not see a troponin in the chart but they did say that he had a normal troponin there. We will order a repeat the troponin here and admit him to the hospital for CHF and ACS workup. He is in agreement with this plan. Patient denies any chest pain at this time. 1730 hrs.: Patient's troponin is positive at 0.04. I do not know what it was at the [place] though they referred to it is normal. Patient's chest pain-free and [facility] ago had an [facility] hospitalist for admission. Impression is dyspnea with CHF rule out ACS. - Medical Records Medical records reviewed: Yes I reviewed the patient's medical records. - Lab Data Lab results reviewed: Yes I reviewed the patient's lab results. Lab Results 01/16/17 Range/Units 16:38 Troponin I 0.04 H* (0-0.03) ng/mL - EKG Data EKG #1 EKG attestation: Yes I reviewed and interpreted this EKG. EKG results narrative: EKG performed 1602 sinus rhythm 77 bpm there is some right ventricular delay seen and V1 V2, QRS 90 3T wave inversion in lateral leads with minimal ST depression. There is no old EKG for comparison.
[2017-01-16] MEDS ORDERED: Acetaminophen 325 MG TABLET PO PRN (19:19)
[2017-01-16] MEDS ORDERED: Naloxone 0.4 MG/ML INJ IVP PRN (19:19)
[2017-01-16] MEDS ORDERED: Ondansetron 4 MG/2 ML VIAL IVP PRN (19:19)
[2017-01-16] MEDS ORDERED: Simethicone 80 MG TAB.CHEW PO PRN (20:09)
--- NOTE | 2017-01-16 20:17 | Internal Med History&Physical ---
Date of Encounter: 01/16/17 Time of Encounter: 20:00 Assessment and Plan (1) Congestive heart failure Current visit: Yes Status: Acute Patient has new onset leg swelling over the past 3-4 days and shortness of breath with exertion and chest tightness. On exam, he has bilateral pitting pedal edema. Chest x-ray from [place] reveals pleural effusions and pulmonary vessel condition. Patient will be admitted to inpatient status. Expected to be in the hospital for at least 2 midnights. High risk due to risk of lethal arrhythmias and pulmonary edema. Expected discharge disposition is to home. Fluid and salt restricted diet. Strict input and output monitoring. Intravenous diuretics. Weight the patient daily. Cardiology consult. Qualifiers: Congestive heart failure type: diastolic Congestive heart failure chronicity: acute on chronic Qualified Code(s): I50.33 - Acute on chronic diastolic (congestive) heart failure (2) Atrial fibrillation Current visit: Yes Status: Chronic Currently in sinus rhythm. Continue beta jocelyn medications. Qualifiers: Atrial fibrillation type: paroxysmal Qualified Code(s): I48.0 - Paroxysmal atrial fibrillation (3) CAD (coronary artery disease) Current visit: Yes Status: Acute Patient had non-STEMI in October 2016. However, left heart catheterization was not performed as the patient's cancer was active and due to the risk of bleeding. Patient's EKG does not reveal any new changes. He continues to have T-wave inversions in lateral leads. His troponin is mildly elevated. We will cycle cardiac enzymes. Continue optimal medical therapy with statin, beta jocelyn and aspirin. As his cancer is currently in remission and he has finished radiation therapy, will consult cardiology to evaluate him for possible left heart Catheterization. Qualifiers: Coronary Disease-Associated Artery/Lesion type: [place] artery [place] vs. transplanted heart: [place] heart Associated angina: without angina Qualified Code(s): I25.10 - Atherosclerotic heart disease of [place] coronary artery without angina pectoris (4) HTN (hypertension) Current visit: Yes Status: Chronic Controlled blood pressure. Continue home medications. Qualifiers: Hypertension type: essential hypertension Qualified Code(s): I10 - Essential (primary) hypertension (5) Head and neck cancer Current visit: No Status: Chronic In remission according to the patient (6) Protein-calorie malnutrition, severe Current visit: Yes Status: Chronic Patient has weight loss from his cancer and BMI of 18.9. Continue home nutrition supplements. Internal Medicine - H&P: HPI Chief complaint: Leg swelling Admitted From: Emergency Dept Plans for Post Hospital Care: Home History of present illness: Mr. Post is a 76 year old male who was transferred to [facility] from [place] urgent care due to swelling of his legs and shortness of breath. Patient presented to [place] [facility] to his primary care physician due to swelling in his legs that started on Saturday. Patient states that the swelling has gradually gotten worse. He reports that it is also associated with shortness of breath with exertion. He denies any orthopnea or paroxysmal nocturnal dyspnea. He reports cough but denies any sputum production. He denies any wheezing. He reports chest tightness but denies any chest pain. He reports feeling lightheaded on ambulation. He reports intermittent palpitations. He denies any nausea, vomiting, diarrhea, conservation or abdominal pain. He denies any urinary symptoms. He denies any rashes or bruising. He reports weight loss since he has been getting radiation therapy for his cancer. He denies any sick contacts or recent travel. 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 However, the patient was unable to tolerate chemotherapy. Hence, the patient is currently only on radiation. He states that his last dose of radiation therapy was on 12/20/2016. He states that he has finished his radiation therapy and that his cancer is currently in remission. Past Med Surg Social Fam HX - Past Medical History Attestation: Yes The following information was validated with the patient. Source: patient Medical history: arthritis, atrial fibrillation, CHF, COPD, coronary artery disease, CVA, glaucoma, hepatitis, hypertension, myocardial infarction, TIA Psychiatric history: no psych history - Past Surgical History Surgical History: carotid endarterectomy, hip replacement, knee replacement - Social History Smoking Status: Current every day smoker Packs per day: 1 Smokeless Tobacco Status: No Alcohol use: heavy (12 packs weekly) Drug use: none Occupational status: retired Current living situation: Home - Independent Activity Level: Uses cane/walker Recent Out of Country Travel Within the Last 8 Weeks: No Exposure or Possible Exposure to Illness During Travel: No - Family History Father Hx Family Cardiac Disorders: Yes Internal Medicine - H&P: Meds Albuterol Sulfate [Albuterol Inhaler] 2 puff IH QID PRN 02/21/17 [History] Aspirin Enteric Coated [Aspirin EC] 81 mg PO DAILY 09/18/16 [History] Bisacodyl [Laxative] 5 mg PO Q48H 09/18/16 [History] Budesonide/Formoterol 160/4.5 [Symbicort 160/4.5] 2 puff IH BIDR #1 hfa.aer.ad 09/18/16 [Rx] Gabapentin [Neurontin] 800 mg PO TID 09/18/16 [History] Hydrophilic Cream [Basle] 1 appl TP DAILY 09/18/16 [History] Ketotifen Fumarate 1 drop OP BID 09/18/16 [History] Lisinopril [Zestril] 40 mg PO DAILY 09/18/16 [History] Loratadine [Allergy Relief] 10 mg PO DAILY 09/18/16 [History] Mirtazapine [Remeron] 15 mg PO HS 09/18/16 [History] Multivitamin [Multivitamins] 1 each PO DAILY 09/18/16 [History] Peg 400/Hypromellose/Glycerin [Visine Tired Eye Relief Drop] 1 drop BOTH EYES TID 09/18/16 [History] Sennosides [Senokot] 17.2 tab PO BID 09/18/16 [History] Simethicone [Bicarsim] 160 mg PO TID PRN 09/18/16 [History] Lactose-Reduced Food [Ensure Liquid] 1 bottle PO 6XD 10/15/16 [History] Atorvastatin [Lipitor] 40 mg PO HS #30 tablet 10/18/16 [Rx] Magic Mouthwash [Magic Mouthwash BLM] 10 ml PO QID PRN #240 ml 11/15/16 [Rx] LORazepam [Ativan] 1 mg PO Q6H PRN #60 tablet 12/25/16 [Rx] Ondansetron [Zofran] 8 mg PO Q8HR PRN #90 tablet 12/25/16 [Rx] Tamsulosin HCl [Flomax] 0.4 mg PO HS #30 cap.er.24h 12/25/16 [Rx] Betamethasone Dipropionate 1 appl TP DAILY PRN 01/16/17 [History] Carbamide Peroxide [Ear Drops] 4 drop OT DAILY 01/16/17 [History] Clindamycin Phosphate [Cleocin T] 1 appl TP DAILY PRN 01/16/17 [History] Diphenoxylate/Atropine [Lomotil 2.5 mg/0.025 mg] 2 each PO QID PRN 01/16/17 [ History] Doxycycline Monohydrate [Mondoxyne Nl] 100 mg PO BID 01/16/17 [History] Hydrocortisone 1% CREAM [Cortaid] 1 appl TP DAILY PRN 01/16/17 [History] Latanoprost [Xalatan] 1 drop OP HS 01/16/17 [History] Lidocaine Viscous Oral Soln 5 ml PO Q4H PRN 01/16/17 [History] Lidocaine/Prilocaine [Emla] 1 appl TP AD PRN 01/16/17 [History] Metoprolol [Lopressor] 12.5 mg PO BID 01/16/17 [History] Oxycodone HCl [Oxaydo] 5 mg PO BID PRN 01/16/17 [History] Pantoprazole Sodium [Protonix] 40 mg PO DAILY 01/16/17 [History] Prochlorperazine Maleate [Compazine] 10 mg PO Q6H PRN 01/16/17 [History] Saliva Substitute Combo No.3 [Aquoral] 4 spray MM QID 01/16/17 [History] Thiamine (B-1) [Vitamin B-1] 100 mg PO BID 01/16/17 [History] Zolpidem [Ambien] 5 mg PO HS PRN 01/16/17 [History] predniSONE [PredniSONE] 40 mg PO DAILY 01/16/17 [History] traZODone [TraZODone] 50 - 100 mg PO HS PRN 01/16/17 [History] Allergies baclofen Allergy (Verified 12/18/16 09:36) Rash cetuximab [From Erbitux] Allergy (Verified 12/18/16 09:36) Hives Diclofenac Allergy (Verified 12/18/16 09:36) Itching ibuprofen Adverse Reaction (Verified 12/18/16 09:36) Nausea All Systems PM: A 10-system review of systems was performed and is negative for pertinent findings except as documented above in the HPI. Review of systems: 10 systems have been reviewed and are negative except as mentioned in the history of present illness - Constitutional Vitals: Temp Pulse Resp BP Pulse Ox 98.1 F 63 16 171/86 93 01/16/17 16:01 01/16/17 17:45 01/16/17 18:17 01/16/17 18:17 01/16/17 17:45 Exam: Gen.: Lying in bed. No acute distress. Eyes: Pupils equal, round and reactive to light. Extraocular muscles intact. ENT: Moist mucous membranes. No oropharyngeal erythema or discharge. Chest: Reduced breath sounds bilaterally. MediPort on the right side. CVS: First and second heart sounds present. No murmurs, rubs or gallops. 2+ bilateral pitting pedal edema more on the left side Abdomen: Soft, nontender, nondistended. Bowel sounds present. No hepatosplenomegaly. Skin: No decubitus ulcers appreciated. MISSING PERSONS INVESTIGATOR: No focal neuro deficits present. Psychiatric: Alert, awake and oriented to time, place and person. Lymphatic system: No lymphadenopathy appreciated Internal Med - H&P Results - Labs Labs: Labs from [place] reviewed and EKG from [place] personally reviewed - Na 130; Elevated bilirubin - EKG Data -: EKG Interpreted by Myself EKG shows normal: sinus rhythm, ST-T waves (T-inversions in leads I, aVL, V4-6) Rate: normal - EKG Data Prior EKG available for review: yes When compared to previous EKG: there is no significant change - Diagnostic Studies Chest x-ray Additional comments: X-ray from [place] read states worsening pleural effusion and interstitial edema
[2017-01-16] MEDS: Budesonide/Formoterol 160/4.5 MDI IH SCH (21:32)
[2017-01-16] MEDS: Sennosides 8.6 MG TABLET PO SCH (21:40)
[2017-01-16] MEDS: Mirtazapine 15 MG TABLET PO SCH (21:40)
[2017-01-16] MEDS: Thiamine (B-1) 100 MG TABLET PO SCH (21:40)
[2017-01-16] MEDS: Latanoprost 2.5 ML BOTTLE BOTH EYES SCH (21:41)
[2017-01-16] MEDS: Furosemide 40 MG/4 ML VIAL IVP SCH (21:42)
[2017-01-16] MEDS: (Ketotifen Fumarate [Ketotifen Fumarate] 1 DROP) OP SCH (21:42)
[2017-01-17] MEDS ORDERED: NON-FORMULARY MEDICATION 1 EACH EACH (Lactose-Reduced Food [Ensure Liquid] 1 BOTTLE) PO SCH
[2017-01-17] MEDS: *HR* Heparin 5,000 UNIT/ML VIAL SQ SCH ×3 (00:22→16:41)
[2017-01-17 03:42] LABS: Basophils % 0.4 %; Eosinophils # 0.1 K/mcL (0.0-0.6); Eosinophils % 1.3 %; Hemoglobin 11.8 g/dL (12.9-16.9); Immature Granulocytes % 0.4 % (0-4); Immature Platelets 13.8 % (1.1-6.1); Lymphocytes % 18.9 %; Mean Corpuscular HGB Conc 36.9 g/dL (31.6-35.5); Mean Corpuscular Hemoglobin 35.9 pg (28.0-33.3); Mean Corpuscular Volume 97.3 fL (83.0-100.0); Mean Platelet Volume 13.2 fL (9.4-12.4); Monocytes # 0.6 K/mcL (0.0-1.3); Monocytes % 12.4 %; Red Blood Count 3.29 M/mcL (4.19-5.50); Red Cell Distribution Width 19.2 % (11.5-14.5); Segmented Neutrophils % 66.6 %
[2017-01-17 03:50] LABS: Lymphocytes # 0.9 K/mcL (0.6-4.6); Platelet Count 84 K/mcL (140-400)
[2017-01-17 05:25] LABS: Alanine Aminotransferase 46 Units/L (0-55); Albumin 2.2 g/dL (3.5-5.0); Albumin/Globulin Ratio 0.5 (1.1-2.2); Alkaline Phosphatase 133 Units/L (38-126); Aspartate Amino Transferase 85 Units/L (5-34); BUN/Creatinine Ratio 11 (6-26); Bilirubin,Total 1.8 mg/dL (0.2-1.2); Blood Urea Nitrogen 10 mg/dL (8-26); Calcium 8.8 mg/dL (8.6-10.8); Carbon Dioxide 26 mEq/L (19-29); Chloride 101 mEq/L (98-109); Globulin 4.7 g/dL (2.4-3.5); Glucose 107 mg/dL (70-99); Osmolality,Calculated 278 (280-300); Potassium 3.3 mEq/L (3.5-4.5); Sodium 134 mEq/L (136-145); Total Protein 6.9 g/dL (6.0-8.3); eGFR For African Americans > 60 (> 60); eGFR For Non-African Americans > 60 (> 60)
[2017-01-17] MEDS: Gabapentin 400 MG CAPSULE PO SCH ×2 (05:54→08:55)
[2017-01-17] MEDS: Sennosides 8.6 MG TABLET PO SCH ×2 (08:54→22:21)
[2017-01-17] MEDS: predniSONE 20 MG TABLET PO SCH (08:55)
[2017-01-17] MEDS: Loratadine 10 MG TABLET PO SCH (08:55)
[2017-01-17] MEDS: Aspirin Enteric Coated 81 MG Tablet PO SCH (08:55)
[2017-01-17] MEDS: Thiamine (B-1) 100 MG TABLET PO SCH ×2 (08:55→22:21)
[2017-01-17] MEDS: Lisinopril 20 MG TABLET PO SCH (08:55)
[2017-01-17] MEDS: Furosemide 40 MG/4 ML VIAL IVP SCH ×2 (08:56→17:50)
[2017-01-17] MEDS: (Ketotifen Fumarate [Ketotifen Fumarate] 1 DROP) OP SCH ×2 (09:26→22:21)
[2017-01-17] MEDS: Budesonide/Formoterol 160/4.5 MDI IH SCH ×2 (09:58→20:35)
--- NOTE | 2017-01-17 13:18 | Internal Med Progress Note ---
Date of Encounter: 01/17/17 Time of Encounter: 13:16 - Assessment and plan (1) Congestive heart failure Current Visit: Yes Status: Acute Assessment and plan: clinically improving b/l Leg edema improved continue IV diuresis repeat 2D echo given recent completion of radiation and chemotherapy last 2D echo was in September 2016 which showed LVEF of 55-60%, normal RV size and function, mild mitral regurgitation fluid restriction diet monitor I/Os, daily weights O2 supplementation as needed cardio consultation. Qualifiers: Congestive heart failure type: diastolic Congestive heart failure chronicity: acute on chronic Qualified Code(s): I50.33 - Acute on chronic diastolic (congestive) heart failure (2) Atrial fibrillation Current Visit: Yes Status: Chronic Assessment and plan: rate controlled with BB ASA for cva ppx Qualifiers: Atrial fibrillation type: paroxysmal Qualified Code(s): I48.0 - Paroxysmal atrial fibrillation (3) Protein-calorie malnutrition, severe Current Visit: Yes Status: Chronic Assessment and plan: nutrition consultation requested (4) CAD (coronary artery disease) Current Visit: Yes Status: Acute Assessment and plan: No signs of angina present at this time history of NSTEMI in October 2016, at that time LHC was not performed as patient was undergoing treatment for active malignancy and had increased risk of bleeding. Currently in remission Will follow up with cardiology consultation continue asa, bb, statin. Qualifiers: Coronary Disease-Associated Artery/Lesion type: [place] artery [place] vs. transplanted heart: [place] heart Associated angina: without angina Qualified Code(s): I25.10 - Atherosclerotic heart disease of [place] coronary artery without angina pectoris (5) HTN (hypertension) Current Visit: Yes Status: Chronic Assessment and plan: Noted to be mildy hypertensive will add Hydralazine 10mg IV q6h prn SBP>150 continue home meds Qualifiers: Hypertension type: essential hypertension Qualified Code(s): I10 - Essential (primary) hypertension (6) Head and neck cancer Current Visit: No Status: Chronic Assessment and plan: In remission as per patient (7) DVT prophylaxis Current Visit: Yes Status: Acute Assessment and plan: Heparin SQ - Subjective Interval history: Patient seen and examined at bedside. Resting in bed and currently saturating well on room air. reports of feeling better since his admission. Pedal edema appears to be improving as per patient. Denies any chest pain or discomfort at this time. - Constitutional Vitals: Temp Pulse Resp BP Pulse Ox 98.0 F 67 14 156/75 94 01/17/17 12:12 01/17/17 12:12 01/17/17 12:12 01/17/17 12:12 01/17/17 12:12 General appearance: Present: cooperative, A&O X 3, pleasant, no acute distress, underweight, answers questions appropriately - Head Head exam: Present: atraumatic, normocephalic - Eye Eye exam: Present: normal appearance, conjuntiva pink, sclera anicteric - Respiratory Respiratory exam: Absent: rales, respiratory distress, wheezes - Cardiovascular Cardiovascular exam: Present: RRR, +S1, +S2 Additional comments: equal air entry bilaterally NO JVD right chest wall Mediport in place - GI/Abdominal GI/Abdominal exam: Present: normal bowel sounds, soft, no peritoneal signs. Absent: distended, tenderness - Extremities Exam Extremities exam: Present: pedal edema (mild pitting edema bilaterally), warm, radial pulses palpable and symetrical. Absent: calf tenderness Additional comments: s/p distal left arm amputation - Neurological Exam Neurological exam: Present: alert, oriented X3 - Psychiatric Psychiatric exam: Present: normal affect, normal mood Internal Medicine: Result - Labs CBC & Chem 7: 01/17/17 03:20 01/17/17 03:20 Labs: Short CBC 01/17/17 Range/Units 03:20 WBC 4.5 (4.3-11.1) K/mcL Hgb 11.8 L (12.9-16.9) g/dL Hct 32.0 L (37.5-50.1) % Plt Count 84 L (140-400) K/mcL Neutrophils # 3.0 (1.6-8.9) K/mcL BMP 01/17/17 03:20 Sodium 134 L Potassium 3.3 L Chloride 101 Carbon Dioxide 26 BUN 10 Creatinine 0.87 Glucose 107 H Calcium 8.8 Cardiac Enzymes 01/16/17 01/17/17 Range/Units 21:15 03:20 Troponin I 0.05 H* 0.05 H* (0-0.03) ng/mL Liver Function 01/17/17 Range/Units 03:20 Total Bilirubin 1.8 H (0.2-1.2) mg/dL AST 85 H (5-34) Units/L ALT 46 (0-55) Units/L Alkaline Phosphatase 133 H (38-126) Units/L Albumin 2.2 L (3.5-5.0) g/dL Consult Discharge Plan - Plan Referrals: [email or web address] [Primary Care Provider] - 01/25/17 9:45 am
[2017-01-17] MEDS ORDERED: *HR* LORazepam 1 MG TABLET PO PRN (13:20)
[2017-01-17] MEDS ORDERED: Ipratropium/Albuterol Neb 3 ML IH PRN (13:21)
--- NOTE | 2017-01-17 14:00 | Cardiology Consult Note ---
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 Last seen by oncology Dec 18 2016 with diagnosis of squamous cell carcinoma to right tonsil. No evidence of distant metastatic disease. Again, patient was undergoing definitive radiation concurrent with systemic therapy, however did not tolerate cetuximab and required hospitalization with diagnosis of non-STEMI September 2016. According to notes, oncology decided against further systemic therapy due to intolerance and multiple medical comorbidities. Patient undergoing radiation therapy. According to notes, systemic therapy remains an option for disease palliation if less than optimal response to definitive radiation therapy and determined not appropriate candidate for other definitive therapies. (2) CAD (coronary artery disease) Current Visit: Yes Status: Chronic Per Cardiology: Per review of records past history stenting. Again had non-STEMI with peak troponin 2.30 September 2016 with cardiology recommendations for medical management. Currently on aspirin, statin, beta jocelyn, and LONI inhibitor. Appears chest pain free, however again difficult to ascertain due to current mental status. Can consider addition of long-acting nitrate if clinically appropriate. Cardiology c/s to re-evaluate for potential LHC-- will discuss and review with Dr. Salmeron, but clinically appears to be poor candidate at this time. No family available to discuss. Continues to remain thrombocytopenic. Last echo showed EF 55-60% with hypokinesis of mid apical, inferior lateral wall. Current echo pending per primary service. Qualifiers: Coronary Disease-Associated Artery/Lesion type: [place] artery [place] vs. transplanted heart: [place] heart Associated angina: without angina Qualified Code(s): I25.10 - Atherosclerotic heart disease of [place] coronary artery without angina pectoris (3) Elevated troponin Current Visit: No Status: Chronic Per Cardiology: Recent hospital stay with peak troponin 2.05. Current troponins flat, adynamic with peak of 0.05. CP free? Suspect demand ischemia. No cardiac rehab warranted. (4) Congestive heart failure Current Visit: Yes Status: Acute Per Cardiology: Admitted for concerns of congestive heart failure. No current chest x-ray or BNP available for review during this hospital stay. Trace pedal edema to bilateral LEs. On IV Lasix per primary service. Qualifiers: Congestive heart failure type: diastolic Congestive heart failure chronicity: acute on chronic Qualified Code(s): I50.33 - Acute on chronic diastolic (congestive) heart failure (5) Atrial fibrillation Current Visit: Yes Status: Chronic Per Cardiology: Appears have history of paroxysmal atrial fibrillation. Currently sinus rhythm on telemetry. Does not appear to be anticoagulated. Again according records history of TIA and CVA. No family available for discussion. Patient currently alert and oriented 1. Suspect patient would be a poor candidate for anticoagulation d/t multiple comorbidities. Continue to monitor telemetry. Further discussion with the patient and/or family if able. Qualifiers: Atrial fibrillation type: paroxysmal Qualified Code(s): I48.0 - Paroxysmal atrial fibrillation (6) Protein-calorie malnutrition, severe Current Visit: Yes Status: Chronic Per Cardiology: Patient cachectic. Albumin low at 2.2. Suspect contributing factor to edema. Discussion w patient/family: Thank you for involving us in the care of your patient. Please call with any questions. Primary service saw patient the bedside. Recommend consider palliative care consult to address long-term CODE STATUS. History of Present Illness Consult date: 01/17/17 Requesting physician: [facility] Consult reason: Elevated Troponin Chief complaint: CP? Patient would not respond to questions upon exam today History of present illness: Mr. Post is a 76 year old male with a relevant past medical history of esophageal cancer, history of ME with reported 2 stents, paroxysmal atrial fibrillation, hypertension, CHF, COPD, history of TIA and CVA, hepatitis, left below the elbow amputation. Past hx of nicotine abuse. Patient seen by cardiology during consult September 2016 and setting a non-STEMI with peak troponin 2.05. Medical management recommended that time due to esophageal cancer and thrombocytopenia. Cardiology consult for evaluation of chest pain, mild troponin elevations, and evaluation for potential left heart catheterization. Upon exam today, no family at bedside. Patient alert to person only. He thought the year was 1916. Very somnolent and difficult to arouse. Did follow simple verbal commands with +GUZMAN x 4. It appears patient does not have any chest pain, short of breath or palpitations, on again however difficult to ascertain. Per discussion with primary team and nursing staff, patient was more interactive earlier today. Vital signs currently stable and blood glucose 202. ABG pending per primary service. Past Med Surg Social Fam HX - Past Medical History Source: unable to obtain (patient provided limted responses to questions), old records reviewed Medical history: arthritis, atrial fibrillation, CHF, COPD, coronary artery disease, CVA, glaucoma, hepatitis, hypertension, myocardial infarction, TIA Psychiatric history: no psych history - Past Surgical History Surgical History: carotid endarterectomy, hip replacement, knee replacement - Social History Smoking Status: Former smoker Packs per day: 1 Smokeless Tobacco Status: No Alcohol use: none Drug use: none - Family History Father Hx Family Cardiac Disorders: Yes Medications and Allergies Albuterol Sulfate [Albuterol Inhaler] 2 puff IH QID PRN 09/18/16 [History] Aspirin Enteric Coated [Aspirin EC] 81 mg PO DAILY 09/18/16 [History] Bisacodyl [Laxative] 5 mg PO Q48H 09/18/16 [History] Budesonide/Formoterol 160/4.5 [Symbicort 160/4.5] 2 puff IH BIDR #1 hfa.aer.ad 09/18/16 [Rx] Gabapentin [Neurontin] 800 mg PO TID 09/18/16 [History] Hydrophilic Cream [Basle] 1 appl TP DAILY 09/18/16 [History] Ketotifen Fumarate 1 drop OP BID 09/18/16 [History] Lisinopril [Zestril] 40 mg PO DAILY 09/18/16 [History] Loratadine [Allergy Relief] 10 mg PO DAILY 09/18/16 [History] Mirtazapine [Remeron] 15 mg PO HS 09/18/16 [History] Multivitamin [Multivitamins] 1 each PO DAILY 09/18/16 [History] Peg 400/Hypromellose/Glycerin [Visine Tired Eye Relief Drop] 1 drop BOTH EYES TID 09/18/16 [History] Sennosides [Senokot] 17.2 tab PO BID 09/18/16 [History] Simethicone [Bicarsim] 160 mg PO TID PRN 09/18/16 [History] Lactose-Reduced Food [Ensure Liquid] 1 bottle PO 6XD 10/15/16 [History] Atorvastatin [Lipitor] 40 mg PO HS #30 tablet 10/18/16 [Rx] Magic Mouthwash [Magic Mouthwash BLM] 10 ml PO QID PRN #240 ml 11/15/16 [Rx] LORazepam [Ativan] 1 mg PO Q6H PRN #60 tablet 12/25/16 [Rx] Ondansetron [Zofran] 8 mg PO Q8HR PRN #90 tablet 12/25/16 [Rx] Tamsulosin HCl [Flomax] 0.4 mg PO HS #30 cap.er.24h 12/25/16 [Rx] Betamethasone Dipropionate 1 appl TP DAILY PRN 01/16/17 [History] Carbamide Peroxide [Ear Drops] 4 drop OT DAILY 01/16/17 [History] Clindamycin Phosphate [Cleocin T] 1 appl TP DAILY PRN 01/16/17 [History] Diphenoxylate/Atropine [Lomotil 2.5 mg/0.025 mg] 2 each PO QID PRN 01/16/17 [ History] Doxycycline Monohydrate [Mondoxyne Nl] 100 mg PO BID 01/16/17 [History] Hydrocortisone 1% CREAM [Cortaid] 1 appl TP DAILY PRN 01/16/17 [History] Latanoprost [Xalatan] 1 drop OP HS 01/16/17 [History] Lidocaine Viscous Oral Soln 5 ml PO Q4H PRN 01/16/17 [History] Lidocaine/Prilocaine [Emla] 1 appl TP AD PRN 01/16/17 [History] Metoprolol [Lopressor] 12.5 mg PO BID 01/16/17 [History] Oxycodone HCl [Oxaydo] 5 mg PO BID PRN 01/16/17 [History] Pantoprazole Sodium [Protonix] 40 mg PO DAILY 01/16/17 [History] Prochlorperazine Maleate [Compazine] 10 mg PO Q6H PRN 01/16/17 [History] Saliva Substitute Combo No.3 [Aquoral] 4 spray MM QID 01/16/17 [History] Thiamine (B-1) [Vitamin B-1] 100 mg PO BID 01/16/17 [History] Zolpidem [Ambien] 5 mg PO HS PRN 01/16/17 [History] predniSONE [PredniSONE] 40 mg PO DAILY 01/16/17 [History] traZODone [TraZODone] 50 - 100 mg PO HS PRN 01/16/17 [History] Allergies baclofen Allergy (Verified 12/18/16 09:36) Rash cetuximab [From Erbitux] Allergy (Verified 12/18/16 09:36) Hives Diclofenac Allergy (Verified 12/18/16 09:36) Itching ibuprofen Adverse Reaction (Verified 12/18/16 09:36) Nausea ROS unobtainable: due to mental status All Systems Review: A 10-system review of systems was performed and is negative for pertinent findings except as documented above in the HPI. - Cardiovascular Cardiovascular: as per HPI Physical Examination Vital Signs, Last 4 Hours Temp Pulse Resp BP Pulse Ox 01/17/17 13:51 98.2 F 64 12 132/65 95 01/17/17 12:12 98.0 F 67 14 156/75 94 HEENT: Atraumatic Cardiac: Reg Rate and Rhythm, Normal S1 and S2, No Murmur Lungs: Normal Breath Sounds, No Wheeze, Rales, Rhonchi, Other (periods of apnea noted) Neuro: Other (alert to person only, thought the year was 1916) Skin: Other (Right neck skin discoloration (radiation?)) Musculoskeletal: No Chest Wall Tenderness, Other (Cachectic, left below the elbow amputation) Extremities: Other (+1 pedal pitting edema) Results 01/17/17 03:20 01/17/17 03:20 Lab Results Laboratory Tests 10/15/16 10/18/16 10/30/16 17:27 02:20 14:07 Plt Count 75 L 119 L Potassium AST Troponin I 2.05 H* Albumin 11/14/16 12/18/16 01/16/17 08:56 10:15 16:38 Plt Count 103 L 68 L Potassium AST Troponin I 0.04 H* Albumin 01/16/17 01/17/17 01/17/17 21:15 03:20 03:20 Plt Count 84 L Potassium AST Troponin I 0.05 H* 0.05 H* Albumin 01/17/17 03:20 Plt Count Potassium 3.3 L AST 85 H Troponin I Albumin 2.2 L Intake & Output 01/14/17 01/15/17 01/16/17 01/17/17 23:59 23:59 23:59 23:59 Intake Total 550 / 550 480 / 480 Output Total 1200 / 1200 825 / 825 Balance -650 / -650 -345 / -345 Weight 53.07 kg 54 kg Active Medications Acetaminophen (Tylenol) 650 mg PO Q6HR PRN PRN Reason: Mild Pain (1-3) Stop: 07/18/17 19:20 Albuterol/Ipratropium (Duoneb) 3 ml IH [id number] PRN; Protocol PRN Reason: Shortness Of Breath/Wheezing Stop: 07/19/17 13:22 Aspirin (Aspirin Ec) 81 mg PO DAILY [facility] Stop: 07/19/17 09:01 Last Admin: 01/17/17 08:55 Dose: 81 mg Atorvastatin Calcium (Lipitor) 80 mg PO HS [facility] Stop: 07/18/17 21:01 Last Admin: 01/16/17 21:40 Dose: 80 mg Bisacodyl (Dulcolax) 5 mg PO Q48H [facility] Stop: 07/18/17 20:16 Last Admin: 01/16/17 21:40 Dose: 5 mg Budesonide/Formoterol Fumarate (Symbicort) 2 puff IH BIDR [facility] PRN Reason: Protocol Stop: 07/18/17 22:01 Last Admin: 01/17/17 09:58 Dose: 2 puff Furosemide (Lasix) 40 mg IVP BIDDIURETIC [facility] Stop: 07/18/17 21:01 Last Admin: 01/17/17 08:56 Dose: 40 mg Gabapentin (Neurontin) 800 mg PO TID [facility] Stop: 07/18/17 21:01 Last Admin: 01/17/17 08:55 Dose: 800 mg Heparin Sodium (Porcine) (Heparin) 5,000 unit SQ Q8HR [facility] Stop: 07/19/17 00:01 Last Admin: 01/17/17 08:56 Dose: 5,000 unit Hydralazine HCl (Hydralazine) 10 mg IVP Q6HR PRN PRN Reason: SBP>150 Stop: 07/19/17 13:23 Latanoprost (Xalatan) 1 drop BOTH EYES HS [facility] PRN Reason: Protocol Stop: 07/18/17 21:01 Last Admin: 01/16/17 21:41 Dose: 1 drop Lisinopril (Zestril) 40 mg PO DAILY [facility] Stop: 07/19/17 09:01 Last Admin: 01/17/17 08:55 Dose: 40 mg Loratadine (Claritin) 10 mg PO DAILY [facility] PRN Reason: Protocol Stop: 07/19/17 09:01 Last Admin: 01/17/17 08:55 Dose: 10 mg Lorazepam (Ativan) 1 mg PO Q6H PRN PRN Reason: Anxiety Stop: 07/19/17 13:21 Metoprolol Tartrate (Lopressor) 12.5 mg PO BID [facility] Stop: 07/18/17 21:01 Last Admin: 01/17/17 08:55 Dose: 12.5 mg Mirtazapine (Remeron) 15 mg PO HS [facility] Stop: 07/18/17 21:01 Last Admin: 01/16/17 21:40 Dose: 15 mg Naloxone HCl (Narcan) 0.4 mg IVP Q2MIN PRN PRN Reason: Opioid Reversal Stop: 07/18/17 19:20 Omeprazole (Prilosec) 20 mg PO DAILY@0730 [facility] Stop: 07/19/17 07:31 Last Admin: 01/17/17 08:56 Dose: 20 mg Ondansetron HCl (Zofran) 4 mg IVP Q8HR PRN PRN Reason: Nausea And Vomiting Stop: 07/18/17 19:20 Oxycodone HCl (Roxicodone) 5 mg PO BID PRN PRN Reason: Severe Pain Pharmacy Profile Note (Patient Taking Own Medication) 0 each OP BID [facility] Stop: 07/18/17 21:01 Last Admin: 01/17/17 09:26 Dose: Not Given Prednisone (Prednisone) 40 mg PO DAILY [facility] Stop: 07/19/17 09:01 Last Admin: 01/17/17 08:55 Dose: 40 mg Senna (Senna) 17.2 mg PO BID [facility] Stop: 07/18/17 21:01 Last Admin: 01/17/17 08:54 Dose: 17.2 mg Simethicone (Gas-X) 160 mg PO TID PRN PRN Reason: Abdominal Distention Tamsulosin HCl (Flomax) 0.4 mg PO HS [facility] PRN Reason: Protocol Stop: 07/18/17 21:01 Last Admin: 01/16/17 21:40 Dose: 0.4 mg Thiamine HCl (Vitamin B-1) 100 mg PO BID [facility] Stop: 07/18/17 21:01 Last Admin: 01/17/17 08:55 Dose: 100 mg Zolpidem Tartrate (Ambien) 5 mg PO HS PRN; Protocol PRN Reason: Insomnia Stop: 07/18/17 20:10 - Imaging and Cardiology Echo: pending, report reviewed - EKG Interpretation EKG results cardiology: personally reviewed, normal ECG, sinus rhythm, other ( Currently sinus rhythm on telemetry and a 70) Consult Discharge Plan - Plan [facility]errals: [facility] Provider[facility] - 01/25/17 9:45 am <Deisi Salmeron - Last Filed: 01/17/17 17:18> Date of Encounter: 01/17/17 Assessment and Plan Discussion w patient/family: The assessment and plan as outlined above was discussed with the patient and/or family members who expressed understanding and agreement. All questions were answered. Thank you for involving us in the care of your patient. Please call with any questions. History of Present Illness History of present illness: Mr. Post is a 76 year old male All Systems Review: A 10-system review of systems was performed and is negative for pertinent findings except as documented above in the HPI. Physical Examination Vital Signs, Last 4 Hours Temp Pulse Resp BP Pulse Ox 01/17/17 13:51 98.2 F 64 12 132/65 95 Results 01/17/17 03:20 01/17/17 03:20 Lab Results 01/16/17 01/17/17 01/17/17 21:15 03:20 03:20 WBC 4.5 Hgb 11.8 L Hct 32.0 L Plt Count 84 L Sodium Potassium Chloride Carbon Dioxide BUN Creatinine Glucose Calcium Total Bilirubin AST ALT Alkaline Phosphatase Troponin I 0.05 H* 0.05 H* 01/17/17 03:20 WBC Hgb Hct Plt Count Sodium 134 L Potassium 3.3 L Chloride 101 Carbon Dioxide 26 BUN 10 Creatinine 0.87 Glucose 107 H Calcium 8.8 Total Bilirubin 1.8 H AST 85 H ALT 46 Alkaline Phosphatase 133 H Troponin I - Attending Attestation I examined this patient and my medical decision-making was reviewed with the ORGANIC LAB WORKER/PA/Advanced Practice Nurse/Resident Physician. I agree with the documented findings, disposition and treatment plan. Mr. Post apparently had chest pain during his visit and has flat, elevated troponins. He has multiple medical comorbidities including advanced head and neck cancer. He is deconditioned and cachectic appearing. He does not appear to be a good candidate for LHC. He presently denies chest pain and is hemodynamically stable. Recommend medical management. We will sign off. Please call with questions.
[2017-01-17 14:24] LABS: ABG Base Excess 7.6 mEq/L (-2.0 to 3.0); ABG Oxygen Saturation 89 % (95-98); ABG PCO2 38 mmHg (35-45); ABG PH 7.52 pH Units (7.32-7.45); ABG TCO2 32.2 mEq/L (20-26)
[2017-01-17 14:28] LABS: ABG PO2 50 mmHg (85-104)
[2017-01-17 14:29] LABS: Blood Gas FiO2 21 %
[2017-01-17] MEDS ORDERED: *HR* Digoxin 0.5 MG/2 ML AMPUL IVP ONE (19:11)
[2017-01-17] MEDS: Mirtazapine 15 MG TABLET PO SCH (22:20)
[2017-01-18] MEDS: Latanoprost 2.5 ML BOTTLE BOTH EYES SCH ×2 (00:56→20:32)
[2017-01-18] MEDS: *HR* Digoxin 0.5 MG/2 ML AMPUL IVP SCH ×2 (00:57→06:35)
[2017-01-18 07:21] LABS: BUN/Creatinine Ratio 22 (6-26); Blood Urea Nitrogen 18 mg/dL (8-26); Calcium 8.3 mg/dL (8.6-10.8); Carbon Dioxide 28 mEq/L (19-29); Chloride 104 mEq/L (98-109); Glucose 131 mg/dL (70-99); Magnesium 1.4 mg/dL (1.6-2.6); Osmolality,Calculated 288 (280-300); Phosphorous 3.4 mg/dL (2.3-4.7); Sodium 137 mEq/L (136-145); eGFR For African Americans > 60 (> 60); eGFR For Non-African Americans > 60 (> 60)
[2017-01-18 07:22] LABS: Hemoglobin 11.1 g/dL (12.9-16.9)
[2017-01-18 07:24] LABS: Hematocrit 30.4 % (37.5-50.1); Immature Granulocytes % 0.5 % (0-4); Lymphocytes # 0.9 K/mcL (0.6-4.6); Lymphocytes % 11.5 %; Mean Corpuscular HGB Conc 36.5 g/dL (31.6-35.5); Mean Corpuscular Hemoglobin 35.5 pg (28.0-33.3); Mean Corpuscular Volume 97.1 fL (83.0-100.0); Mean Platelet Volume 13.8 fL (9.4-12.4); Monocytes # 0.8 K/mcL (0.0-1.3); Monocytes % 10.1 %; Neutrophils # 5.8 K/mcL (1.6-8.9); Red Blood Count 3.13 M/mcL (4.19-5.50); Red Cell Distribution Width 19.4 % (11.5-14.5); Segmented Neutrophils % 77.9 %
[2017-01-18 07:26] LABS: Platelet Count 84 K/mcL (140-400)
[2017-01-18] MEDS ORDERED: Magnesium Sulfate 2 GM in D5% in Water 100 ML IVPB ONE (08:06)
[2017-01-18] MEDS ORDERED: Potassium Chloride 40 MEQ, Lidocaine 1% 2 ML in D5% in Water 500 ML IVPB ONE (08:06)
[2017-01-18] MEDS: predniSONE 20 MG TABLET PO SCH (08:48)
[2017-01-18] MEDS: Thiamine (B-1) 100 MG TABLET PO SCH ×2 (08:55→20:28)
[2017-01-18] MEDS: Aspirin Enteric Coated 81 MG Tablet PO SCH (08:55)
[2017-01-18] MEDS: Sennosides 8.6 MG TABLET PO SCH ×2 (08:56→20:28)
[2017-01-18] MEDS: Loratadine 10 MG TABLET PO SCH (08:56)
[2017-01-18] MEDS: (Ketotifen Fumarate [Ketotifen Fumarate] 1 DROP) OP SCH ×2 (08:57→20:28)
[2017-01-18] MEDS: Lisinopril 20 MG TABLET PO SCH (08:57)
--- NOTE | 2017-01-18 09:21 | Internal Med Progress Note ---
Date of Encounter: 01/18/17 Time of Encounter: 09:05 - Assessment and plan (1) Congestive heart failure Current Visit: Yes Status: Acute Assessment and plan: clinically improving b/l Leg edema improving continue IV diuresis repeat 2D echo: LVEF of 55% with regional wall motion abnormalities. fluid restriction diet monitor I/Os, daily weights O2 supplementation as needed cardio re-evaluation requested Qualifiers: Congestive heart failure type: diastolic Congestive heart failure chronicity: acute on chronic Qualified Code(s): I50.33 - Acute on chronic diastolic (congestive) heart failure (2) Atrial fibrillation Current Visit: Yes Status: Chronic Assessment and plan: rate poorly controlled Will start on Cardizem gtt continue BB closely monitor BP tele monitoring Follow up with cardiology ASA for CVA ppx Qualifiers: Atrial fibrillation type: paroxysmal Qualified Code(s): I48.0 - Paroxysmal atrial fibrillation (3) Protein-calorie malnutrition, severe Current Visit: Yes Status: Chronic Assessment and plan: nutrition consultation requested (4) CAD (coronary artery disease) Current Visit: Yes Status: Chronic Assessment and plan: No signs of angina present at this time history of NSTEMI in October 2016, at that time LHC was not performed as patient was undergoing treatment for active malignancy and had increased risk of bleeding. Currently in remission as per patient continue asa, bb, statin. Qualifiers: Coronary Disease-Associated Artery/Lesion type: [place] artery [place] vs. transplanted heart: [place] heart Associated angina: without angina Qualified Code(s): I25.10 - Atherosclerotic heart disease of [place] coronary artery without angina pectoris (5) HTN (hypertension) Current Visit: Yes Status: Chronic Assessment and plan: Noted to be hypotensive this morning will closely monitor Hold morning Lisinopril dose continue low dose BB Qualifiers: Hypertension type: essential hypertension Qualified Code(s): I10 - Essential (primary) hypertension (6) Head and neck cancer Current Visit: No Status: Chronic Assessment and plan: In remission as per patient (7) DVT prophylaxis Current Visit: Yes Status: Acute Assessment and plan: Given chronic thrombocytopenia, will use SCD for DVT ppx - Subjective Interval history: Patient seen and examined at bedside. Patient sitting in bed and reports of feeling well and denies any discomfort at this time. However he is noted to currently have poorly rate controlled Afib with RVR. Yesterday evening he was noted to become lethargic and had a STAT ABG which showed metabolic alkalosis with respiratory compensation and Hypoxia. Patient was placed on O2 supplementation. He responded well to O2 supplementation and mental status returned to baseline. Later in the evening, patient was noted to have Afib with RVR with rate sustaining in 130-140s. He received one dose of Cardizem 10mg IVP. He received loading dose of digoxin overnight and rate was adequately controlled. This morning patient is noted to have Afib with rvr with rate sustaining in 150s with labile BP. He received one dose of Cardizem 10mg IVP and will be placed on cardizem gtt. Cardiology has been consulted. Will continue home dose of BB given the current BP readings. Pt states he has a son in [place] who is not very involved in his medical care. he states his son will not know much about his medical condition or the treatment he has been receiving. Patient reports of living alone. Will obtain physical therapy evaluation. - Constitutional Vitals: Temp Pulse Resp BP Pulse Ox 98.0 F 86 16 142/74 96 01/18/17 05:08 01/18/17 05:08 01/18/17 05:08 01/18/17 05:08 01/18/17 05:08 General appearance: Present: cooperative, A&O X 3 (Frail appearing elderly male) , pleasant, no acute distress, underweight, answers questions appropriately - Head Head exam: Present: atraumatic, normocephalic - Eye Eye exam: Present: normal appearance, conjuntiva pink, sclera anicteric - Respiratory Respiratory exam: Present: CTAB. Absent: accessory muscle use, rales, rhonchi, wheezes - Cardiovascular Cardiovascular exam: Present: irregular rhythm, +S1, +S2, tachycardia - GI/Abdominal GI/Abdominal exam: Present: normal bowel sounds, soft, no peritoneal signs. Absent: distended, tenderness - Extremities Exam Extremities exam: Present: pedal edema, radial pulses palpable and symetrical. Absent: calf tenderness Additional comments: s/p distal left arm amputation - Neurological Exam Neurological exam: Present: alert, oriented X3 - Psychiatric Psychiatric exam: Present: normal affect, normal mood Internal Medicine: Result - Labs CBC & Chem 7: 01/18/17 06:45 01/18/17 06:45 Labs: Short CBC 01/18/17 Range/Units 06:45 WBC 7.4 D (4.3-11.1) K/mcL Hgb 11.1 L (12.9-16.9) g/dL Hct 30.4 L (37.5-50.1) % Plt Count 84 L (140-400) K/mcL Neutrophils # 5.8 (1.6-8.9) K/mcL BMP 01/18/17 06:45 Sodium 137 Potassium 3.0 L Chloride 104 Carbon Dioxide 28 BUN 18 Creatinine 0.83 Glucose 131 H Calcium 8.3 L - ABG Interpretation ABG results: ABG ABG pH 7.52 pH Units (7.32-7.45) H 01/17/17 14:16 ABG pCO2 38 mmHg (35-45) 01/17/17 14:16 ABG pO2 50 mmHg (85-104) L* 01/17/17 14:16 ABG O2 Saturation 89 % (95-98) L 01/17/17 14:16 Consult Discharge Plan - Plan Referrals: [facility],PCP [Primary Care Provider] - 01/25/17 9:45 am
[2017-01-18] MEDS ORDERED: Lisinopril 20 MG TABLET PO SCH (09:27)
--- NOTE | 2017-01-18 10:35 | Cardiology Progress Note ---
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 Last seen by oncology Dec 18 2016 with diagnosis of squamous cell carcinoma to right tonsil. No evidence of distant metastatic disease. Again, patient was undergoing definitive radiation concurrent with systemic therapy, however did not tolerate cetuximab and required hospitalization with diagnosis of non-STEMI September 2016. According to notes, oncology decided against further systemic therapy due to intolerance and multiple medical comorbidities. Patient undergoing radiation therapy. According to notes, systemic therapy remains an option for disease palliation if less than optimal response to definitive radiation therapy and determined not appropriate candidate for other definitive therapies. Recommend consider palliative care consult to address long-term CODE STATUS. (2) CAD (coronary artery disease) Current Visit: Yes Status: Chronic Per Cardiology: Per review of records past history stenting. Again, had non-STEMI with peak troponin 2.30 September 2016 with cardiology recommendations for medical management d/t comorbid conditions. Chest pain free, can consider addition of long-acting nitrate if clinically appropriate. On aspirin, statin, beta jocelyn, and LONI inhibitor. Last echo showed EF 55-60% with hypokinesis of mid apical, inferior lateral wall. Current echo shows EF 55%. Continues to remain thrombocytopenic. Per discussion with Dr. Salmeron, no further recs for [facility] at this time and to continue with medical management. Patient verbalized understanding and agreed with plan. Recs to f/u as outpatient Qualifiers: Coronary Disease-Associated Artery/Lesion type: [place] artery [place] vs. transplanted heart: [place] heart Associated angina: without angina Qualified Code(s): I25.10 - Atherosclerotic heart disease of [place] coronary artery without angina pectoris (3) Elevated troponin Current Visit: No Status: Chronic Per Cardiology: Recent hospital stay with peak troponin 2.05. Current troponins flat, adynamic with peak of 0.05. CP free. Suspect demand ischemia. (4) Congestive heart failure Current Visit: Yes Status: Acute Per Cardiology: Admitted for concerns of congestive heart failure. No current chest x-ray or BNP available for review during this hospital stay. On IV Lasix 40mg BID and according to medical records, net - 1720 during stay. EF 55% on echo. Last echo 09/2016 showed preserved EF, normal RV size and fxn, indeterminate diastolic fxn , mild MR. Now with afib with RVR and noted lower SBPs-- intravasculary dry? Clinically euvolemic on exam. Discussed with Dr. Salmeron, will DC IV lasix. Will start low dose PO lasix and monitor. Qualifiers: Congestive heart failure type: diastolic Congestive heart failure chronicity: acute on chronic Qualified Code(s): I50.33 - Acute on chronic diastolic (congestive) heart failure (5) Atrial fibrillation Current Visit: Yes Status: Chronic Per Cardiology: History of paroxysmal atrial fibrillation. Was sinus rhythm on telemetry, but now noted to be afib RVR this am. Received IV Cardizem and digoxin per primary service. Now rate controlled on exam in 70's. Will decrease ACEI dose and increase BB for better rate control. Monitor HR and BP. Mg and K low and being replaced by primary service. Suspect related to diuresis. Again, according to records history of TIA and CVA. Patient confirms not currently anticoagulated with his recent diagnosis of head and neck cancer. Patient aware of increased stroke risk. On asa. SQ Heparin on hold-- will stop for now (low PLT). Place SCDs for DVT prevention. Qualifiers: Atrial fibrillation type: paroxysmal Qualified Code(s): I48.0 - Paroxysmal atrial fibrillation (6) Protein-calorie malnutrition, severe Current Visit: Yes Status: Chronic Per Cardiology: Patient cachectic. Albumin low at 2.2. Discussion w patient/family: Thank you for involving us in the care of your patient. Please call with any questions. Patient verbalized understanding and agreed with plan. Subjective Principal diagnosis: Afib, hx of NSTEMI Interval history: Cardiology reevaluated patient this morning due to A. fib with RVR. Patient now alert and oriented 3 and responding to questions appropriately. He denies any chest pain, shortness of breath, palpitations. Patient does not recall meeting me yesterday. Objective Selected Entries 01/18/17 00:28 01/18/17 05:08 01/18/17 09:08 Temperature 98.0 F Pulse Rate 144 86 Respiratory Rate 16 Blood Pressure 142/74 O2 Sat by Pulse Oximetry 96 Oxygen Flow Rate (LPM) 2.5 Oxygen Delivery Method Nasal Cannula General: Conversant, No Apparent Distress HEENT: Atraumatic Cardiac: Reg Rate and Rhythm, Normal S1 and S2, No Murmur Lungs: Normal Breath Sounds, No Wheeze, Rales, Rhonchi Neuro: Alert and responsive, No focal deficits noted Abdomen: Soft, Non-Tender, Other (flat, cachetic ) Musculoskeletal: No Chest Wall Tenderness Extremities: No Edema, Normal Pulses Results 01/18/17 06:45 01/18/17 06:45 Lab Results Laboratory Tests 01/18/17 06:45 Potassium 3.0 L Magnesium 1.4 L Intake & Output 01/15/17 01/16/17 01/17/17 01/18/17 23:59 23:59 23:59 23:59 Intake Total 550 / 550 720 / 720 360 / 360 Output Total 1200 / 1200 1650 / 1650 500 / 500 Balance -650 / -650 -930 / -930 -140 / -140 Weight 53.07 kg 57.1 kg Active Medications Acetaminophen (Tylenol) 650 mg PO Q6HR PRN PRN Reason: Mild Pain (1-3) Stop: 07/18/17 19:20 Albuterol/Ipratropium (Duoneb) 3 ml IH [id number] PRN; Protocol PRN Reason: Shortness Of Breath/Wheezing Stop: 07/19/17 13:22 Aspirin (Aspirin Ec) 81 mg PO DAILY [facility] Stop: 07/19/17 09:01 Last Admin: 01/18/17 08:55 Dose: 81 mg Atorvastatin Calcium (Lipitor) 80 mg PO HS [facility] Stop: 07/18/17 21:01 Last Admin: 01/17/17 22:21 Dose: 80 mg Bisacodyl (Dulcolax) 5 mg PO Q48H [facility] Stop: 07/18/17 20:16 Last Admin: 01/16/17 21:40 Dose: 5 mg Budesonide/Formoterol Fumarate (Symbicort) 2 puff IH BIDR [facility] PRN Reason: Protocol Stop: 07/18/17 22:01 Last Admin: 01/17/17 20:35 Dose: 2 puff Furosemide (Lasix) 40 mg IVP BIDDIURETIC [facility] Stop: 07/18/17 21:01 Last Admin: 01/17/17 17:50 Dose: 40 mg Gabapentin (Neurontin) 800 mg PO TID [facility] Stop: 07/18/17 21:01 Last Admin: 01/17/17 08:55 Dose: 800 mg Heparin Sodium (Porcine) (Heparin) 5,000 unit SQ Q8HR [facility] Stop: 07/19/17 00:01 Last Admin: 01/17/17 16:41 Dose: Not Given Hydralazine HCl (Hydralazine) 10 mg IVP Q6HR PRN PRN Reason: SBP>150 Stop: 07/19/17 13:23 Potassium Chloride 40 meq/ (Lidocaine 2 ml/ Dextrose) 522 mls @ 130.5 mls/hr IVPB ONCE ONE Stop: 01/18/17 12:05 Last Admin: 01/18/17 08:56 Dose: 130.5 mls/hr Latanoprost (Xalatan) 1 drop BOTH EYES [facility] PRN Reason: Protocol Stop: 07/18/17 21:01 Last Admin: 01/18/17 00:56 Dose: Not Given Lisinopril (Zestril) 40 mg PO DAILY [facility] Stop: 07/19/17 09:01 Loratadine (Claritin) 10 mg PO DAILY [facility] PRN Reason: Protocol Stop: 07/19/17 09:01 Last Admin: 01/18/17 08:56 Dose: 10 mg Lorazepam (Ativan) 1 mg PO Q6H PRN PRN Reason: Anxiety Stop: 07/19/17 13:21 Metoprolol Tartrate (Lopressor) 12.5 mg PO BID [facility] Stop: 07/18/17 21:01 Last Admin: 01/18/17 08:56 Dose: 12.5 mg Mirtazapine (Remeron) 15 mg PO HS [facility] Stop: 07/18/17 21:01 Last Admin: 01/17/17 22:20 Dose: 15 mg Naloxone HCl (Narcan) 0.4 mg IVP Q2MIN PRN PRN Reason: Opioid Reversal Stop: 07/18/17 19:20 Omeprazole (Prilosec) 20 mg PO DAILY@0730 [facility] Stop: 07/19/17 07:31 Last Admin: 01/18/17 08:56 Dose: 20 mg Ondansetron HCl (Zofran) 4 mg IVP Q8HR PRN PRN Reason: Nausea And Vomiting Stop: 07/18/17 19:20 Oxycodone HCl (Roxicodone) 5 mg PO BID PRN PRN Reason: Severe Pain Pharmacy Profile Note (Patient Taking Own Medication) 0 each OP BID [facility] Stop: 07/18/17 21:01 Last Admin: 01/18/17 08:57 Dose: Not Given Prednisone (Prednisone) 40 mg PO DAILY [facility] Stop: 07/19/17 09:01 Last Admin: 01/18/17 08:48 Dose: 40 mg Senna (Senna) 17.2 mg PO BID [facility] Stop: 07/18/17 21:01 Last Admin: 01/18/17 08:56 Dose: 17.2 mg Simethicone (Gas-X) 160 mg PO TID PRN PRN Reason: Abdominal Distention Tamsulosin HCl (Flomax) 0.4 mg PO HS [facility] PRN Reason: Protocol Stop: 07/18/17 21:01 Last Admin: 01/17/17 22:21 Dose: 0.4 mg Thiamine HCl (Vitamin B-1) 100 mg PO BID [facility] Stop: 07/18/17 21:01 Last Admin: 01/18/17 08:55 Dose: 100 mg Zolpidem Tartrate (Ambien) 5 mg PO HS PRN; Protocol PRN Reason: Insomnia Stop: 07/18/17 20:10 Consult Discharge Plan - Plan [facility] Provider[facility] - 01/25/17 9:45 am
[2017-01-18] MEDS ORDERED: Metoprolol XL (24 HR) Succ 25 MG TAB.ER.24H PO SCH (10:45)
[2017-01-18] MEDS: Budesonide/Formoterol 160/4.5 MDI IH SCH ×2 (11:13→20:50)
--- NOTE | 2017-01-18 15:17 | Event Note ---
Date of Encounter: 01/18/17 Time of Encounter: 15:00 - Cardiology Event Note Patient reevaluated and currently sinus rhythm in the 70s with controlled blood pressures. Denies any chest pain, short of breath, palpitations. Cardiology will sign off, because of as needed, follow up as outpatient scheduled. All questions answered. Patient verbalized understanding and agreed to plan.
--- NOTE | 2017-01-18 15:36 | Electrocardiograph Report ---
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
--- NOTE | 2017-01-18 17:31 | Electrocardiograph Report ---
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
--- NOTE | 2017-01-18 17:32 | Electrocardiograph Report ---
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 : 1940 Requested By: Ricardo Lucas Order Number: [id number] Reading MD: Poppy Vyas Measurements Intervals [place] Rate: 77 P: 148 MT: 132 QRS: 49 QRSD: 93 T: 149 QT: 423 QTc: 454 Interpretive Statements ECTOPIC ATRIAL RHYTHM LOW QRS VOLTAGE IN EXTREMITY LEADS [QRS DEFLECTION < 0.5 mV IN LIMB LEADS] POSSIBLE RIGHT VENTRICULAR CONDUCTION DELAY [RSR (QR) IN V1/V2] LEFT VENTRICULAR HYPERTROPHY AND ST-T CHANGE [VOLTAGE CRITERIA PLUS ST/T ABNORMALITY] LATERAL MYOCARDIAL INFARCTION [40+ ms Q WAVE AND/OR ST/T ABNORMALITY IN I/aVL/V5/V6], OF INDETERMINATE AGE Electronically Signed On 01-18-2017 17:30:32 EDT by Poppy Vyas
--- NOTE | 2017-01-18 17:42 | Venous Imaging Report ---
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 Recommendations: After imaging the patient returned to their room. Results to Joan on 3B @ 0755 on 01/17/17. Test completed on 01/17/2017 at 7:55:00 am. Findings Venous Duplex Results: Right: Venous imaging of the lower extremity reveals full patency and normal vessel compressibility of the right distal iliac, right common femoral, right superficial femoral, right popliteal, right posterior tibial, right peroneal, right great saphenous and right lesser saphenous. Doppler signals in the evaluated veins were normal. Left: Venous imaging of the lower extremity reveals full patency and normal vessel compressibility of the left distal iliac, left common femoral, left superficial femoral, left popliteal, left posterior tibial, left peroneal, left great saphenous and left lesser saphenous. Doppler signals in the evaluated veins were normal. Prior Study: No prior study available for comparison. Lower Extremity Venous Duplex Side Vein Compress Spontaneous Flow Augment Diameter (cm) Depth (cm) Right Distal Iliac Normal Yes Phasic Yes Right Common Femoral Normal Yes Phasic Yes Right Superficial Femoral Normal Yes Phasic Yes Right Popliteal Normal Yes Phasic Yes Right Posterior Tibial Normal Yes Phasic Yes Right Peroneal Normal Yes Phasic Yes Right Great Saphenous Normal Yes Phasic Yes Right Lesser Saphenous Normal Yes Phasic Yes Left Distal Iliac Normal Yes Phasic Yes Left Common Femoral Normal Yes Phasic Yes Left Superficial Femoral Normal Yes Phasic Yes Left Popliteal Normal Yes Phasic Yes Left Posterior Tibial Normal Yes Phasic Yes Left Peroneal Normal Yes Phasic Yes Left Great Saphenous Normal Yes Phasic Yes Left Lesser Saphenous Normal Yes Phasic Yes Updated by Alexandro Dominique MD on 01/18/2017 5:37:48 PM electronically signed on 01/18/2017 5:38:03 PM with status of Final
[2017-01-18] MEDS: Mirtazapine 15 MG TABLET PO SCH (20:27)
[2017-01-19 07:47] LABS: BUN/Creatinine Ratio 18 (6-26); Blood Urea Nitrogen 14 mg/dL (8-26); Calcium 8.2 mg/dL (8.6-10.8); Carbon Dioxide 24 mEq/L (19-29); Chloride 105 mEq/L (98-109); Glucose 106 mg/dL (70-99); Magnesium 1.7 mg/dL (1.6-2.6); Osmolality,Calculated 279 (280-300); Phosphorous 2.6 mg/dL (2.3-4.7); Potassium 3.9 mEq/L (3.5-4.5); Sodium 134 mEq/L (136-145); eGFR For African Americans > 60 (> 60); eGFR For Non-African Americans > 60 (> 60)
[2017-01-19 08:18] LABS: Basophils % 0.1 %; Hematocrit 31.1 % (37.5-50.1); Hemoglobin 11.1 g/dL (12.9-16.9); Immature Granulocytes % 0.4 % (0-4); Lymphocytes # 0.8 K/mcL (0.6-4.6); Lymphocytes % 12.3 %; Mean Corpuscular HGB Conc 35.7 g/dL (31.6-35.5); Mean Corpuscular Hemoglobin 34.6 pg (28.0-33.3); Mean Corpuscular Volume 96.9 fL (83.0-100.0); Mean Platelet Volume 14.2 fL (9.4-12.4); Monocytes # 0.6 K/mcL (0.0-1.3); Monocytes % 9.2 %; Neutrophils # 5.3 K/mcL (1.6-8.9); Red Blood Count 3.21 M/mcL (4.19-5.50); Red Cell Distribution Width 19.4 % (11.5-14.5)
[2017-01-19 08:19] LABS: Platelet Count 83 K/mcL (140-400)
[2017-01-19] MEDS: Furosemide 20 MG TABLET PO SCH (10:14)
[2017-01-19] MEDS: Lisinopril 20 MG TABLET PO SCH (10:14)
[2017-01-19] MEDS: Thiamine (B-1) 100 MG TABLET PO SCH ×2 (10:14→20:29)
[2017-01-19] MEDS: predniSONE 20 MG TABLET PO SCH (10:14)
[2017-01-19] MEDS: Sennosides 8.6 MG TABLET PO SCH ×2 (10:14→20:29)
[2017-01-19] MEDS: Aspirin Enteric Coated 81 MG Tablet PO SCH (10:15)
[2017-01-19] MEDS: Loratadine 10 MG TABLET PO SCH (10:15)
[2017-01-19] MEDS: (Ketotifen Fumarate [Ketotifen Fumarate] 1 DROP) OP SCH ×2 (10:15→20:31)
[2017-01-19] MEDS: Budesonide/Formoterol 160/4.5 MDI IH SCH ×2 (11:05→20:05)
--- NOTE | 2017-01-19 11:25 | Internal Med Progress Note ---
Date of Encounter: 01/19/17 Time of Encounter: 10:55 - Assessment and plan (1) Congestive heart failure Current Visit: Yes Status: Acute Assessment and plan: clinically improving b/l Leg edema improving continue IV diuresis repeat 2D echo: LVEF of 55% with regional wall motion abnormalities. fluid restriction diet monitor I/Os, daily weights O2 supplementation as needed (2) Atrial fibrillation Current Visit: Yes Status: Chronic Assessment and plan: rate better controlled cardiology input appreciated increased BB dose and decreased LONI-inh dose noted to be slightly hypertensive will add hydralazine 10mg IVP q6h SBP>150 if remains persistently hypertensive then will add Amlodipine ASA for CVA ppx Qualifiers: Atrial fibrillation type: paroxysmal Qualified Code(s): I48.0 - Paroxysmal atrial fibrillation (3) Protein-calorie malnutrition, severe Current Visit: Yes Status: Chronic (4) CAD (coronary artery disease) Current Visit: Yes Status: Chronic Assessment and plan: No signs of angina present at this time history of NSTEMI in October 2016, at that time LHC was not performed as patient was undergoing treatment for active malignancy and had increased risk of bleeding. Currently in remission as per patient continue asa, bb, statin. Qualifiers: Coronary Disease-Associated Artery/Lesion type: [place] artery [place] vs. transplanted heart: [place] heart Associated angina: without angina Qualified Code(s): I25.10 - Atherosclerotic heart disease of [place] coronary artery without angina pectoris (5) HTN (hypertension) Current Visit: Yes Status: Chronic Assessment and plan: Noted to be hypertensive this morning Lisinopril dose decreased by cardiology and BB dose increased will add Hydralazine 10mg IVP q6h prn SBP>150 will closely monitor, if remains hypertensive, will add Amlodipine Qualifiers: Hypertension type: essential hypertension Qualified Code(s): I10 - Essential (primary) hypertension (6) Head and neck cancer Current Visit: No Status: Chronic Assessment and plan: In remission as per patient (7) DVT prophylaxis Current Visit: Yes Status: Acute Assessment and plan: Given chronic thrombocytopenia, will use SCD for DVT ppx (8) Diarrhea Current Visit: Yes Status: Acute Assessment and plan: no clinical signs of infectious etiology present will obtain stool studies (culture, C-diff) will monitor off abx at this time Pt noted to have received stool softener yesterday which has been discontinued. if remains clinically stable overnight, likely d/c in am Qualifiers: Diarrhea type: unspecified type Qualified Code(s): R19.7 - Diarrhea, unspecified - Subjective Interval history: Patient seen and examined at bedside. Resting in bed and reports of feeling tired today. states he has diffuse abd discomfort and diarrhea. Patient was evaluated by physical therapy and short term rehab was recommended. Patient is adamantly against going to [facility]. Reports of feeling weak today. No overnight events reported - Constitutional Vitals: Temp Pulse Resp BP Pulse Ox 98.0 F 64 16 156/88 93 01/19/17 11:04 01/19/17 11:04 01/19/17 11:04 01/19/17 11:04 01/19/17 11:04 General appearance: Present: cooperative, A&O X 3 (Frail appearing elderly male) , pleasant, no acute distress, underweight, answers questions appropriately - Head Head exam: Present: atraumatic, normocephalic - Eye Eye exam: Present: normal appearance, conjuntiva pink, sclera anicteric - Respiratory Respiratory exam: Present: CTAB. Absent: accessory muscle use, rales, rhonchi, wheezes - Cardiovascular Cardiovascular exam: Present: RRR, +S1, +S2 - GI/Abdominal GI/Abdominal exam: Present: normal bowel sounds, soft, no peritoneal signs. Absent: distended, guarding, tenderness - Extremities Exam Extremities exam: Present: warm, radial pulses palpable and symetrical. Absent : calf tenderness - Neurological Exam Neurological exam: Present: alert, oriented X3 Internal Medicine: Result - Labs CBC & Chem 7: 01/19/17 06:39 01/19/17 06:39 Labs: Short CBC 01/19/17 Range/Units 06:39 WBC 6.8 (4.3-11.1) K/mcL Hgb 11.1 L (12.9-16.9) g/dL Hct 31.1 L (37.5-50.1) % Plt Count 83 L (140-400) K/mcL BMP 01/19/17 06:39 Sodium 134 L Potassium 3.9 Chloride 105 Carbon Dioxide 24 BUN 14 Creatinine 0.76 Glucose 106 H Calcium 8.2 L - ABG Interpretation ABG results: ABG ABG pH 7.52 pH Units (7.32-7.45) H 01/17/17 14:16 ABG pCO2 38 mmHg (35-45) 01/17/17 14:16 ABG pO2 50 mmHg (85-104) L* 01/17/17 14:16 ABG O2 Saturation 89 % (95-98) L 01/17/17 14:16 Consult Discharge Plan - Plan Referrals: [facility] [Primary Care Provider] - 01/25/17 9:45 am
[2017-01-19 12:52] LABS: Anisocytosis 1+ (Not Present); Macrocytosis Present (Not Present); Platelet Estimate Decreased (Normal)
[2017-01-19] MEDS: *HR* OxyCODONE Immed Rel 5 MG TABLET PO PRN (20:30)
[2017-01-19] MEDS: Gabapentin 400 MG CAPSULE PO SCH (20:31)
[2017-01-19] MEDS: Latanoprost 2.5 ML BOTTLE BOTH EYES SCH (20:31)
[2017-01-19] MEDS: Mirtazapine 15 MG TABLET PO SCH (20:31)
[2017-01-20 04:27] LABS: Immature Granulocytes % 0.6 % (0-4)
[2017-01-20 04:29] LABS: Hematocrit 31.4 % (37.5-50.1); Immature Platelets 15.8 % (1.1-6.1); Lymphocytes # 0.6 K/mcL (0.6-4.6); Lymphocytes % 12.3 %; Mean Corpuscular Hemoglobin 34.7 pg (28.0-33.3); Mean Corpuscular Volume 99.1 fL (83.0-100.0); Mean Platelet Volume 12.7 fL (9.4-12.4); Monocytes # 0.4 K/mcL (0.0-1.3); Monocytes % 8.5 %; Neutrophils # 3.9 K/mcL (1.6-8.9); Red Blood Count 3.17 M/mcL (4.19-5.50); Red Cell Distribution Width 19.6 % (11.5-14.5); Segmented Neutrophils % 78.6 %
[2017-01-20 04:38] LABS: Platelet Count 81 K/mcL (140-400)
[2017-01-20 04:41] LABS: BUN/Creatinine Ratio 20 (6-26); Blood Urea Nitrogen 19 mg/dL (8-26); Calcium 8.2 mg/dL (8.6-10.8); Carbon Dioxide 26 mEq/L (19-29); Chloride 106 mEq/L (98-109); Glucose 124 mg/dL (70-99); Magnesium 1.6 mg/dL (1.6-2.6); Osmolality,Calculated 286 (280-300); Phosphorous 3.3 mg/dL (2.3-4.7); Sodium 136 mEq/L (136-145); eGFR For African Americans > 60 (> 60); eGFR For Non-African Americans > 60 (> 60)
[2017-01-20 04:54] LABS: Acanthocytes 1+ (Not Present); Target Cells 1+ (Not Present)
[2017-01-20 04:56] LABS: Macrocytosis Present (Not Present)
[2017-01-20 04:57] LABS: Large Platelets Present (Not Present); Platelet Estimate Decreased (Normal); Poikilocytosis 1+ (Not Present)
[2017-01-20] MEDS: Budesonide/Formoterol 160/4.5 MDI IH SCH (08:01)
[2017-01-20 11:23] VITALS: BP 135/65
[2017-01-20] MEDS: Loratadine 10 MG TABLET PO SCH (11:24)
[2017-01-20] MEDS: *HR* OxyCODONE Immed Rel 5 MG TABLET PO PRN (11:26)
[2017-01-20] MEDS: Sennosides 8.6 MG TABLET PO SCH (11:26)
[2017-01-20] MEDS: Thiamine (B-1) 100 MG TABLET PO SCH (11:26)
[2017-01-20] MEDS: Lisinopril 20 MG TABLET PO SCH (11:27)
[2017-01-20] MEDS: Furosemide 20 MG TABLET PO SCH (11:27)
[2017-01-20] MEDS: Gabapentin 400 MG CAPSULE PO SCH (11:27)
[2017-01-20] MEDS: Aspirin Enteric Coated 81 MG Tablet PO SCH (11:27)
[2017-01-20] MEDS: (Ketotifen Fumarate [Ketotifen Fumarate] 1 DROP) OP SCH (11:27)
[2017-01-20] MEDS: predniSONE 20 MG TABLET PO SCH (11:27)
--- NOTE | 2017-01-20 12:14 | Discharge Summary ---
Date of Encounter: 01/20/17 Time of Encounter: 12:06 - Discharge Diagnosis (1) Congestive heart failure Priority: Primary Status: Acute (2) Atrial fibrillation Priority: Secondary Status: Chronic Qualifiers: Atrial fibrillation type: paroxysmal Qualified Code(s): I48.0 - Paroxysmal atrial fibrillation (3) Protein-calorie malnutrition, severe Priority: Secondary Status: Chronic (4) CAD (coronary artery disease) Priority: Secondary Status: Chronic Qualifiers: Coronary Disease-Associated Artery/Lesion type: [place] artery [place] vs. transplanted heart: [place] heart Associated angina: without angina Qualified Code(s): I25.10 - Atherosclerotic heart disease of [place] coronary artery without angina pectoris (5) HTN (hypertension) Priority: Secondary Status: Chronic Qualifiers: Hypertension type: essential hypertension Qualified Code(s): I10 - Essential (primary) hypertension (6) Head and neck cancer Priority: Secondary Status: Chronic (7) DVT prophylaxis Priority: Secondary Status: Acute (8) Diarrhea Priority: Secondary Status: Resolved Qualifiers: Diarrhea type: unspecified type Qualified Code(s): R19.7 - Diarrhea, unspecified - Discharge Medications Prescriptions: Furosemide [Lasix] 20 mg PO DAILY #30 tablet Lisinopril [Zestril] 20 mg PO DAILY #30 tablet Metoprolol [Lopressor] 25 mg PO BID #60 tablet Home Medications: Albuterol Sulfate [Albuterol Inhaler] 2 puff IH QID PRN 09/18/16 [History] Aspirin Enteric Coated [Aspirin EC] 81 mg PO DAILY 09/18/16 [History] Bisacodyl [Laxative] 5 mg PO Q48H 09/18/16 [History] Budesonide/Formoterol 160/4.5 [Symbicort 160/4.5] 2 puff IH BIDR #1 hfa.aer.ad 09/18/16 [Rx] Gabapentin [Neurontin] 800 mg PO TID 09/18/16 [History] Hydrophilic Cream [Basle] 1 appl TP DAILY 09/18/16 [History] Ketotifen Fumarate 1 drop OP BID 09/18/16 [History] Loratadine [Allergy Relief] 10 mg PO DAILY 09/18/16 [History] Mirtazapine [Remeron] 15 mg PO HS 09/18/16 [History] Multivitamin [Multivitamins] 1 each PO DAILY 09/18/16 [History] Peg 400/Hypromellose/Glycerin [Visine Tired Eye Relief Drop] 1 drop BOTH EYES TID 09/18/16 [History] Sennosides [Senokot] 17.2 tab PO BID 09/18/16 [History] Simethicone [Bicarsim] 160 mg PO TID PRN 09/18/16 [History] Lactose-Reduced Food [Ensure Liquid] 1 bottle PO 6XD 10/15/16 [History] Atorvastatin [Lipitor] 40 mg PO HS #30 tablet 10/18/16 [Rx] Magic Mouthwash [Magic Mouthwash BLM] 10 ml PO QID PRN #240 ml 11/15/16 [Rx] LORazepam [Ativan] 1 mg PO Q6H PRN #60 tablet 12/25/16 [Rx] Ondansetron [Zofran] 8 mg PO Q8HR PRN #90 tablet 12/25/16 [Rx] Tamsulosin HCl [Flomax] 0.4 mg PO HS #30 cap.er.24h 12/25/16 [Rx] Betamethasone Dipropionate 1 appl TP DAILY PRN 01/16/17 [History] Carbamide Peroxide [Ear Drops] 4 drop OT DAILY 01/16/17 [History] Clindamycin Phosphate [Cleocin T] 1 appl TP DAILY PRN 01/16/17 [History] Diphenoxylate/Atropine [Lomotil 2.5 mg/0.025 mg] 2 each PO QID PRN 01/16/17 [ History] Hydrocortisone 1% CREAM [Cortaid] 1 appl TP DAILY PRN 01/16/17 [History] Latanoprost [Xalatan] 1 drop OP HS 01/16/17 [History] Lidocaine Viscous Oral Soln 5 ml PO Q4H PRN 01/16/17 [History] Lidocaine/Prilocaine [Emla] 1 appl TP AD PRN 01/16/17 [History] Oxycodone HCl [Oxaydo] 5 mg PO BID PRN 01/16/17 [History] Pantoprazole Sodium [Protonix] 40 mg PO DAILY 01/16/17 [History] Prochlorperazine Maleate [Compazine] 10 mg PO Q6H PRN 01/16/17 [History] Saliva Substitute Combo No.3 [Aquoral] 4 spray MM QID 01/16/17 [History] Thiamine (B-1) [Vitamin B-1] 100 mg PO BID 01/16/17 [History] Zolpidem [Ambien] 5 mg PO HS PRN 01/16/17 [History] predniSONE [PredniSONE] 40 mg PO DAILY 01/16/17 [History] traZODone [TraZODone] 50 - 100 mg PO HS PRN 01/16/17 [History] Furosemide [Lasix] 20 mg PO DAILY #30 tablet 01/20/17 [Rx] Lisinopril [Zestril] 20 mg PO DAILY #30 tablet 01/20/17 [Rx] Metoprolol [Lopressor] 25 mg PO BID #60 tablet 01/20/17 [Rx] Allergies/Adverse Reactions: Allergies baclofen Allergy (Verified 12/18/16 09:36) Rash cetuximab [From Erbitux] Allergy (Verified 12/18/16 09:36) Hives Diclofenac Allergy (Verified 12/18/16 09:36) Itching ibuprofen Adverse Reaction (Verified 12/18/16 09:36) Nausea Procedures/tests Complete & Pending: Procedures Performed prior 72 hours Category Date Time Status ECG 12 lead ECG [ECG] Routine Y 01/17/17 18:13 Completed ECG 12 lead ECG [ECG] Routine Y 01/18/17 08:38 Completed EV limited echocardiogram Stat Y 01/17/17 13:14 Completed EV venous imaging LE BI Routine Y 01/17/17 20:09 Completed Date of admission: 01/16/17 18:10 [facility] care [facility]: [facility] Consults: 01/16/17 20:08 Consult to Cardiology [CONS] Routine Comment: Consulting Provider: Jovita Marcano Reason for Consult: CAD; CHF; cancer is in remission now; May need [facility] Call Completed: No 01/17/17 13:30 Consult Oncology Dietitian/Nutrtition [CONS] ONCE 01/18/17 09:13 Consult to Cardiology [CONS] Routine Comment: Consulting Provider: Jovita Marcano Reason for Consult: Afib with RVR Call Completed: Yes Consult to Occupational Therapy [CONS] Routine Comment: Evaluate, develop and implement POC Reason for Consult: evaluation for discharge disposition Consult to Physical Therapy [CONS] Routine Comment: Evaluate, develop and implement POC Reason for Consult: evaluation for discharge disposition Discharging clinician: Keyla Gutierrez Anticipated date of discharge: 01/20/17 - Patient Status Disposition: Home Health Service Condition: Good Functional capacity at discharge: uses cane/walker Overall status at discharge: patient is back to baseline - Discharge Instructions Follow Up With: [facility]PC[facility] [Primary Care Provider] - 01/25/17 9:45 am Additional Instructions: Please follow up with your primary care physician within five days after your discharge from the hospital. Please follow up with your inserting machine operator within one week after your discharge from the hospital. Lasix 20mg once a day has been added to your home medications. Please take this medication as prescribed. Your home dose of metoprolol has been increased to 25mg twice a day and home dose of Lisinopril has been decreased to 20mg once a day. Please take these medications as prescribed. Please closely monitor your BP and HR. Hold your Metoprolol dose if your HR is below 60 and hold all blood pressure medications (Metoprolol, Lisinopril, Lasix ) if your SBP<110 Resume all your home medications as prescribed by your primary care physician. - Diet and Activity Activity: as per physical therapy, wear oxygen at all times Diet: low salt diet Hospital course: Mr. Post is a 76 year old male with PMH of atrial fibrillation, CHF, COPD on LTOT, coronary artery disease, CVA, glaucoma, hepatitis, hypertension who was admitted for management of CHF decompensation. He was started on diuretic therapy to which he responded appropriately. His hospital course was complicated with Afib with RVR rate poorly controlled for which cardiology was consulted. Patient;s home dose of BB was increased and his home dose of LONI-inh was decreased. His rate was appropriately controlled and his BP remained within acceptable range. He was evaluated by physical therapy and ECF was recommended. He is adamantly refusing rehab and states he already has home health and support from his neighbors and would like to be discharged to home. Pt is currently hemodynamically stable and will be discharged to home with follow up with PCP and cardiology. He demonstrates understanding of his diagnosis and agrees with the discharge care and plan. - Time Spent with Patient Total time spent providing and/or coordinating discharge services: Greater than 30 minutes - Constitutional Vitals: Temp Pulse Resp BP Pulse Ox 97.9 F 52 16 135/65 94 01/20/17 11:18 01/20/17 11:18 01/20/17 11:18 01/20/17 11:18 01/20/17 11:18 General appearance: Present: cooperative, A&O X 3 (Frail appearing elderly male) , pleasant, no acute distress, underweight, answers questions appropriately - Head Head exam: Present: atraumatic, normocephalic - Eye Eye exam: Present: normal appearance, conjuntiva pink, sclera anicteric - Respiratory Respiratory exam: Present: CTAB. Absent: accessory muscle use, rales, rhonchi, wheezes - Cardiovascular Cardiovascular exam: Present: RRR, +S1, +S2. Absent: diastolic murmur, gallop, rubs, systolic murmur - GI/Abdominal GI/Abdominal exam: Present: normal bowel sounds, soft, no peritoneal signs. Absent: distended, tenderness - Extremities Exam Extremities exam: Present: warm, radial pulses palpable and symetrical. Absent : calf tenderness, cyanotic, pedal edema Additional comments: s/p distal left arm amputation - Neurological Exam Neurological exam: Present: alert, oriented X3 - Psychiatric Psychiatric exam: Present: normal affect, normal mood
--- NOTE | 2017-01-20 12:23 | Physician Discharge Referral ---
Home Health/Hosp Referral Info Transfer to: Home Health Provider in Charge Post Discharge: PCP - Diagnosis (1) Congestive heart failure Priority: Primary Status: Acute (2) Atrial fibrillation Priority: Secondary Status: Chronic (3) Protein-calorie malnutrition, severe Priority: Secondary Status: Chronic (4) CAD (coronary artery disease) Priority: Secondary Status: Chronic (5) HTN (hypertension) Priority: Secondary Status: Chronic (6) Head and neck cancer Priority: Secondary Status: Chronic (7) DVT prophylaxis Priority: Secondary Status: Acute (8) Diarrhea Priority: Secondary Status: Resolved - Respiratory Orders Smoking Cessation: Smoking cessation has been advised. For more information, call the [place] Tobacco Quit Line at 7-229-BDARNOW. - Services Needed Following services are medically necessary services: Nursing, Home Health Aide, Physical Therapy, Occupational Therapy - Transfer Medications Prescriptions: Furosemide [Lasix] 20 mg PO DAILY #30 tablet Lisinopril [Zestril] 20 mg PO DAILY #30 tablet Metoprolol [Lopressor] 25 mg PO BID #60 tablet Home Medications: Albuterol Sulfate [Albuterol Inhaler] 2 puff IH QID PRN 09/18/16 [History] Aspirin Enteric Coated [Aspirin EC] 81 mg PO DAILY 09/18/16 [History] Bisacodyl [Laxative] 5 mg PO Q48H 09/18/16 [History] Budesonide/Formoterol 160/4.5 [Symbicort 160/4.5] 2 puff IH BIDR #1 hfa.aer.ad 09/18/16 [Rx] Gabapentin [Neurontin] 800 mg PO TID 09/18/16 [History] Hydrophilic Cream [Basle] 1 appl TP DAILY 09/18/16 [History] Ketotifen Fumarate 1 drop OP BID 09/18/16 [History] Loratadine [Allergy Relief] 10 mg PO DAILY 09/18/16 [History] Mirtazapine [Remeron] 15 mg PO HS 09/18/16 [History] Multivitamin [Multivitamins] 1 each PO DAILY 09/18/16 [History] Peg 400/Hypromellose/Glycerin [Visine Tired Eye Relief Drop] 1 drop BOTH EYES TID 09/18/16 [History] Sennosides [Senokot] 17.2 tab PO BID 09/18/16 [History] Simethicone [Bicarsim] 160 mg PO TID PRN 09/18/16 [History] Lactose-Reduced Food [Ensure Liquid] 1 bottle PO 6XD 10/15/16 [History] Atorvastatin [Lipitor] 40 mg PO HS #30 tablet 10/18/16 [Rx] Magic Mouthwash [Magic Mouthwash BLM] 10 ml PO QID PRN #240 ml 11/15/16 [Rx] LORazepam [Ativan] 1 mg PO Q6H PRN #60 tablet 12/25/16 [Rx] Ondansetron [Zofran] 8 mg PO Q8HR PRN #90 tablet 12/25/16 [Rx] Tamsulosin HCl [Flomax] 0.4 mg PO HS #30 cap.er.24h 12/25/16 [Rx] Betamethasone Dipropionate 1 appl TP DAILY PRN 01/16/17 [History] Carbamide Peroxide [Ear Drops] 4 drop OT DAILY 01/16/17 [History] Clindamycin Phosphate [Cleocin T] 1 appl TP DAILY PRN 01/16/17 [History] Diphenoxylate/Atropine [Lomotil 2.5 mg/0.025 mg] 2 each PO QID PRN 01/16/17 [ History] Hydrocortisone 1% CREAM [Cortaid] 1 appl TP DAILY PRN 01/16/17 [History] Latanoprost [Xalatan] 1 drop OP HS 01/16/17 [History] Lidocaine Viscous Oral Soln 5 ml PO Q4H PRN 01/16/17 [History] Lidocaine/Prilocaine [Emla] 1 appl TP AD PRN 01/16/17 [History] Oxycodone HCl [Oxaydo] 5 mg PO BID PRN 01/16/17 [History] Pantoprazole Sodium [Protonix] 40 mg PO DAILY 01/16/17 [History] Prochlorperazine Maleate [Compazine] 10 mg PO Q6H PRN 01/16/17 [History] Saliva Substitute Combo No.3 [Aquoral] 4 spray MM QID 01/16/17 [History] Thiamine (B-1) [Vitamin B-1] 100 mg PO BID 01/16/17 [History] Zolpidem [Ambien] 5 mg PO HS PRN 01/16/17 [History] predniSONE [PredniSONE] 40 mg PO DAILY 01/16/17 [History] traZODone [TraZODone] 50 - 100 mg PO HS PRN 01/16/17 [History] Furosemide [Lasix] 20 mg PO DAILY #30 tablet 01/20/17 [Rx] Lisinopril [Zestril] 20 mg PO DAILY #30 tablet 01/20/17 [Rx] Metoprolol [Lopressor] 25 mg PO BID #60 tablet 01/20/17 [Rx] Allergies/Adverse Reactions: Allergies baclofen Allergy (Verified 12/18/16 09:36) Rash cetuximab [From Erbitux] Allergy (Verified 12/18/16 09:36) Hives Diclofenac Allergy (Verified 12/18/16 09:36) Itching ibuprofen Adverse Reaction (Verified 12/18/16 09:36) Nausea Certification: Further, I certify that my clinical findings support that this patient is homebound (i.e. absences from home require considerable and taxing effort and are for medical reasons or faith services or infrequently or short duration when for other reasons) because: Homebound Reason: Patient requires assistance of a person or device to safely leave home Attestation: My signature below is to certify that this patient is under my care and that I, or nurse practitioner, or a physician's medical assistant supervisor working with me, has a face-to -face encounter with this patient.
[2017-01-23 16:29] LABS: Ova & Parasite Stain NEGATIVE (Negative)
== END 2017-01-20 13:36 | disposition home health service (06) | DRG 291 ==
LOC: EMEROO 15:57 → 3BNU 15:57 → 2NENU 01-17 18:59
PROVIDERS: ADMIT Internal Medicine Sleep Medicine; ATTEND Registered Nurse

== ENCOUNTER 2017-01-30 18:02 | Inpatient (IN) ==
[2017-01-30] MEDS ORDERED: *HR* LORazepam 1 MG TABLET PO PRN (20:34)
[2017-01-30] MEDS ORDERED: Simethicone 80 MG TAB.CHEW PO PRN (20:34)
[2017-01-30] MEDS ORDERED: 0.9 % Sodium Chloride 1,000 ML ONE (21:26)
[2017-01-30] MEDS: Mirtazapine 15 MG TABLET PO SCH (21:43)
[2017-01-30] MEDS: Gabapentin 400 MG CAPSULE PO SCH (21:43)
[2017-01-30] MEDS: Sennosides 8.6 MG TABLET PO SCH (21:43)
[2017-01-30] MEDS: Latanoprost 2.5 ML BOTTLE BOTH EYES SCH (21:46)
[2017-01-30] MEDS ORDERED: Naloxone 0.4 MG/ML INJ IVP PRN (22:47)
[2017-01-30] MEDS ORDERED: Ondansetron 4 MG/2 ML VIAL IVP PRN (22:47)
[2017-01-30] MEDS ORDERED: Nitroglycerin 0.4 MG TAB.SUBL SL PRN (22:55)
--- NOTE | 2017-01-30 23:02 | Internal Med History&Physical ---
<Kenroy Rodriguez - Last Filed: 01/31/17 00:20> Date of Encounter: 01/31/17 Time of Encounter: 22:30 Assessment and Plan (1) Chest pain Current visit: Yes Status: Acute Patient presents with chief complaint of chest pain that he describes as crushing. He reports that he has had chest pain previously but never this bad. Patient was seen approximately one week ago by cardiology and echocardiogram showed LVEF of 55%. Patient has not had a stress test performed recently. Nitroglycerin Q15MIN PRN ordered, Diltiazem drip ordered for current elevated HR , continuous cardiac telemetry ordered, supplemental O2 and SPO2 monitoring ordered, NPO after midnight for a.m. testing, nuclear pharm stress test in a.m. Will monitor patient closely and consider follow-up cardiology consult based on results. Qualifiers: Chest pain type: chest pain due to myocardial ischemia Ischemic chest pain type: unspecified angina pectoris type Qualified Code(s): I20.9 - Angina pectoris, unspecified (2) Dyspnea Current visit: Yes Status: Acute Patient presents with complaint of increased SOB related to severe chest pain. Patient is also a current smoker smoking 1 pack per day, uses home oxygen, and has history of COPD. Supplemental O2 ordered with titration if SPO2 less than 92%. Continuous SPO2 monitoring ordered. DuoNeb's ordered every 6 when necessary. Monitor patient vital signs. Qualifiers: Dyspnea type: shortness of breath Qualified Code(s): R06.02 - Shortness of breath (3) Elevated troponin Current visit: Yes Status: Acute Patient presents with initial elevated troponin level of 0.06. Will trend troponins x3 every six hours. Continuous cardiac telemetry ordered. (4) Atrial fibrillation with rapid ventricular response Current visit: Yes Status: Acute Patient presents with history of atrial fibrillation and current acute atrial fibrillation with RVR. Diltiazem drip started to help control patient's HR. Patient is currently not on anticoagulation besides aspirin therapy, so will continue. Patient placed on continuous cardiac telemetry. (5) CAD (coronary artery disease) Current visit: Yes Status: Chronic Patient has a history of CAD with placement of two stents previously. Patient presents with current atrial fibrillation with RVR and will be placed on continuous cardiac telemetry, continuation of aspirin therapy, and continuation of patient's home medications (simvastatin, lopressor, and lisinopril). Monitor patient and vital signs. Qualifiers: Coronary Disease-Associated Artery/Lesion type: [place] artery [place] vs. transplanted heart: [place] heart Associated angina: without angina Qualified Code(s): I25.10 - Atherosclerotic heart disease of [place] coronary artery without angina pectoris (6) HTN (hypertension) Current visit: Yes Status: Chronic Patient presents with a history of chronic hypertension. Will monitor patient and vital signs. Will continue patient's simvastatin, Lopressor, and lisinopril. Qualifiers: Hypertension type: essential hypertension Qualified Code(s): I10 - Essential (primary) hypertension (7) COPD (chronic obstructive pulmonary disease) Current visit: Yes Status: Chronic Patient presents with history of chronic obstructive pulmonary disease. Patient reports he is current smoker, smoking 1 pack per day. Patient also reports the use of home oxygen. Supplemental O2 ordered with titration if SPO2 less than 92 %. Continuous SPO2 monitoring ordered. DuoNeb nebs every 6 when necessary ordered. We will monitor patient and his respiratory status closely. Qualifiers: COPD type: emphysema Emphysema type: unspecified Qualified Code(s): J43.9 - Emphysema, unspecified (8) DVT prophylaxis Current visit: Yes Status: Acute Patient to be placed on DVT prophylaxis due to admission protocol and current bedrest status. Heparin 5,000 units SQ Q12 ordered. Internal Medicine - H&P: HPI Chief complaint: Chest pain Admitted From: Hospital to Hospital Transfer Plans for Post Hospital Care: Home History of present illness: Mr. Post is a 76 year old male who presents from [facility] with chief complaint of chest pain that he describes as a crushing feeling in his chest that began this morning. Patient states that he was seen within the past week for similar symptoms but his symptoms became much worse today. Mr. Post reports that he is a current smoker, smoking 1 pack per day. He also reports that he uses home oxygen at 2 L. Patient also states he became very short of breath with chest pain symptoms and that O2 did not help. Patient denies use of nitroglycerin at home. Patient also denies recent illness, fever , chills, nausea, vomiting, unusual bleeding, syncope, or presyncope. Patient' s medical history includes arthritis, atrial fibrillation, cancer, CHF, COPD, CAD, CVA, glaucoma, hypertension, [place], TIA, and hepatitis. Upon examination, patient's heart rate varies between 120s and 130s. He is currently on diltiazem drip. He is in atrial fibrillation with RVR upon auscultation. O2 saturation currently 96% on O2. Mr. Post is at high risk for a cardiac event due to his current atrial fibrillation with RVR and history of cardiac risk factors including tobacco abuse, hypertension, previous [place], CVA, TIA, CHF, and CAD. Patient was seen approximately one week ago by cardiology and echocardiogram showed LVEF of 55%. Patient has not had a stress test performed recently. Patient to be NPO after midnight for a.m. nuclear pharm stress test. Will consider follow-up cardiology consult based on results. Patient will be admitted as inpatient with continuous cardiac telemetry, trending troponins 3, diltiazem drip for HR control, supplemental O2 with titration if SPO2 less than 92% and continuous SPO2 monitoring, and continuation of patient's home meds ( including simvastatin, Lopressor, and lisinopril). Nitroglycerin SL every 15 minutes when necessary ordered. Patient will also be placed as falls precautions /[id number]/bedrest with bathroom privileges with assist only status due to shortness of breath and weakness. Patient to be monitored closely. Time spent with patient greater than 40 minutes. Past Med Surg Social Fam HX - Past Medical History Source: patient Medical history: arthritis, atrial fibrillation, cancer, CHF, COPD, coronary artery disease, CVA, glaucoma, hepatitis, hypertension, myocardial infarction, TIA Psychiatric history: no psych history - Past Surgical History Surgical History: carotid endarterectomy, hip replacement, knee replacement - Social History Smoking Status: Current every day smoker Packs per day: 1 PPD Smokeless Tobacco Status: No Alcohol use: occasionally Drug use: none Current living situation: Home Activity Level: Uses cane/walker Recent Out of Country Travel Within the Last 8 Weeks: No Exposure or Possible Exposure to Illness During Travel: No - Family History Father Living Status: Hx Family Cardiac Disorders: Yes Mother Living Status: Hx Family Cardiac Disorders: Yes Internal Medicine - H&P: Meds Albuterol Sulfate [Albuterol Inhaler] 2 puff IH QID PRN 09/18/16 [History] Aspirin Enteric Coated [Aspirin EC] 81 mg PO DAILY 09/18/16 [History] Bisacodyl [Laxative] 5 mg PO Q48H 09/18/16 [History] Budesonide/Formoterol 160/4.5 [Symbicort 160/4.5] 2 puff IH BIDR #1 hfa.aer.ad 09/18/16 [Rx] Gabapentin [Neurontin] 800 mg PO TID 09/18/16 [History] Hydrophilic Cream [Basle] 1 appl TP DAILY 09/18/16 [History] Ketotifen Fumarate 1 drop OP BID 09/18/16 [History] Loratadine [Allergy Relief] 10 mg PO DAILY 09/18/16 [History] Mirtazapine [Remeron] 15 mg PO HS 09/18/16 [History] Multivitamin [Multivitamins] 1 each PO DAILY 09/18/16 [History] Peg 400/Hypromellose/Glycerin [Visine Tired Eye Relief Drop] 1 drop BOTH EYES TID 09/18/16 [History] Sennosides [Senokot] 17.2 tab PO BID 09/18/16 [History] Simethicone [Bicarsim] 160 mg PO TID PRN 09/18/16 [History] Lactose-Reduced Food [Ensure Liquid] 1 bottle PO 6XD 10/15/16 [History] Atorvastatin [Lipitor] 40 mg PO HS #30 tablet 10/18/16 [Rx] Magic Mouthwash [Magic Mouthwash BLM] 10 ml PO QID PRN #240 ml 11/15/16 [Rx] LORazepam [Ativan] 1 mg PO Q6H PRN #60 tablet 12/25/16 [Rx] Ondansetron [Zofran] 8 mg PO Q8HR PRN #90 tablet 12/25/16 [Rx] Tamsulosin HCl [Flomax] 0.4 mg PO HS #30 cap.er.24h 12/25/16 [Rx] Betamethasone Dipropionate 1 appl TP DAILY PRN 01/16/17 [History] Carbamide Peroxide [Ear Drops] 4 drop OT DAILY 01/16/17 [History] Clindamycin Phosphate [Cleocin T] 1 appl TP DAILY PRN 01/16/17 [History] Diphenoxylate/Atropine [Lomotil 2.5 mg/0.025 mg] 2 each PO QID PRN 01/16/17 [ History] Hydrocortisone 1% CREAM [Cortaid] 1 appl TP DAILY PRN 01/16/17 [History] Latanoprost [Xalatan] 1 drop OP HS 01/16/17 [History] Lidocaine/Prilocaine [Emla] 1 appl TP AD PRN 01/16/17 [History] Oxycodone HCl [Oxaydo] 5 mg PO BID PRN 01/16/17 [History] Pantoprazole Sodium [Protonix] 40 mg PO DAILY 01/16/17 [History] Prochlorperazine Maleate [Compazine] 10 mg PO Q6H PRN 01/16/17 [History] Saliva Substitute Combo No.3 [Aquoral] 4 spray MM QID 01/16/17 [History] Thiamine (B-1) [Vitamin B-1] 100 mg PO BID 01/16/17 [History] Zolpidem [Ambien] 5 mg PO HS PRN 01/16/17 [History] predniSONE [PredniSONE] 40 mg PO DAILY 01/16/17 [History] traZODone [TraZODone] 50 - 100 mg PO HS PRN 01/16/17 [History] Furosemide [Lasix] 20 mg PO DAILY #30 tablet 01/20/17 [Rx] Lisinopril [Zestril] 20 mg PO DAILY #30 tablet 01/20/17 [Rx] Metoprolol [Lopressor] 25 mg PO BID #60 tablet 01/20/17 [Rx] Amoxicillin/Clavulanate [Augmentin] 500 mg PO BIDWM #20 tablet 01/28/17 [Rx] Nystatin [Nystatin Suspension] 100,000 units PO QID #120 ml 01/28/17 [Rx] Allergies baclofen Allergy (Verified 01/24/17 04:01) Rash cetuximab [From Erbitux] Allergy (Verified 01/24/17 04:01) Hives Diclofenac Allergy (Verified 01/24/17 04:01) Itching ibuprofen Adverse Reaction (Verified 01/24/17 04:01) Nausea All Systems PM: A 10-system review of systems was performed and is negative for pertinent findings except as documented above in the HPI. - Constitutional Constitutional: no chills, no fever(s), no night sweats - EENT Eyes: no change in vision, no discharge, no pain, no photophobia Ears: no ear discharge, no ear pain, no tinnitus Nose, mouth and throat: no dysphagia, no nasal discharge, no neck pain, no sore throat - Breasts Breasts: as per HPI - Cardiovascular Cardiovascular ROS IM: as per HPI, chest pain, dyspnea, dyspnea on exertion, irregular heart rhythm, lightheadedness, palpitations - Respiratory Respiratory: as per HPI, cough, dyspnea, dyspnea on exertion - Gastrointestinal Gastrointestinal: no abdominal pain, no diarrhea, no hematemesis, no hematochezia, no melena, no nausea, no vomiting - Genitourinary Genitourinary ROS male: as per HPI - Musculoskeletal Musculoskeletal ROS IM: no numbness, no tingling - Integumentary Integumentary IM: no rash, no unusual bruising - Neurological Neurological ROS: no confusion, no convulsions, no focal weakness, no numbness, no tingling, no tremor(s) - Psychiatric Psychiatric: as per HPI - Endocrine Endocrine IM: as per HPI - Hematologic/Lymphatic Hematologic/Lymphatic: no easy bruising - Allergic/Immunologic Allergic/Immunologic: as per HPI - Constitutional Vitals: Temp Pulse Resp Pulse Ox 98.2 F 129 19 95 01/30/17 20:51 01/30/17 20:51 01/30/17 20:51 01/30/17 20:51 General appearance: Present: cooperative, A&O X 3, no acute distress, answers questions appropriately - Head Head exam: Present: atraumatic, normocephalic - Eye Eye exam: Present: PERRL, conjuntiva pink, sclera anicteric Pupils: Present: PERRL - ENT ENT exam: Present: normal exam, normal external ear exam - Neck Neck exam general surgery: Present: supple, trachea midline. Absent: lymphadenopathy - Respiratory Respiratory exam: Present: wheezes (Mild wheezes noted in all lobes bilaterally) - Cardiovascular Cardiovascular exam: Present: irregular rhythm (Atrial fibrillation with RVR) - GI/Abdominal GI/Abdominal exam: Present: normal bowel sounds, soft, no peritoneal signs. Absent: distended, tenderness - Rectal Rectal exam: Present: deferred - Additional comments: exam deferred. - Extremities Exam Extremities exam: Present: warm, radial pulses palpable and symetrical. Absent : calf tenderness, cyanotic, pedal edema - Neurological Exam Neurological exam: Present: alert, oriented X3 - Psychiatric Psychiatric exam: Present: normal affect, normal mood - Skin Skin exam: Present: dry, intact Internal Med - H&P Results - EKG Data EKG shows normal: sinus rhythm - EKG Data Prior EKG available for review: yes When compared to previous EKG: there are significant changes EKG comments: 01/30/17 23:27 EKG dated 01/30/17 16:02:04 shows sinus rhythm with possible right ventricular conduction delay, left ventricular hypertrophy, and ST-T change. EKG dated 01/30/17 20:41:57 shows atrial fibrillation with rapid ventricular response, possible right ventricular conduction delay, voltage criteria for LVH , ST deviation and moderate T-wave abnormality (consider lateral ischemia). - Diagnostic Studies Chest x-ray Additional comments: Chest x-ray dated 01/30/17 at 16:15 [place] shows small to moderate right-sided pleural effusion and airspace disease in the right lung, either due to pneumonia versus asymmetric pulmonary edema. Overall no significant interval change. <Ramos Kennedy - Last Filed: 01/31/17 05:15> Date of Encounter: 01/30/17 Internal Medicine - H&P: HPI History of present illness: Mr. Post is a 76 year old male All Systems PM: A 10-system review of systems was performed and is negative for pertinent findings except as documented above in the HPI. - Constitutional Vitals: Temp Pulse Resp BP Pulse Ox 98.9 F 90 17 122/69 95 01/31/17 00:32 01/31/17 04:54 01/31/17 04:54 01/31/17 04:54 01/31/17 04:54 Internal Med - H&P Results - Labs Labs: Cardiac Enzymes 01/30/17 Range/Units 23:07 Troponin I 0.06 H* (0-0.03) ng/mL - Attending Attestation Correction, date of encounter was 01/30/17 and NOT 01/31/17 I personally interviewed and examined this patient who is a poor historian and my medical decision-making was reviewed with the Advanced Practice Nurse. I agree with the documented findings, disposition and treatment plan as described. Ramos Kennedy MD, MPH Hospitalist
[2017-01-30] MEDS ORDERED: Ipratropium/Albuterol Neb 3 ML IH PRN (23:57)
[2017-01-31 05:18] LABS: Hemoglobin 10.5 g/dL (12.9-16.9); Immature Granulocytes % 0.6 % (0-4); Mean Corpuscular Volume 98.6 fL (83.0-100.0)
[2017-01-31 05:19] LABS: Eosinophils # 0.1 K/mcL (0.0-0.6); Eosinophils % 0.8 %; Hematocrit 29.2 % (37.5-50.1); Immature Platelets 17.2 % (1.1-6.1); Lymphocytes # 0.6 K/mcL (0.6-4.6); Lymphocytes % 8.7 %; Mean Corpuscular Hemoglobin 35.5 pg (28.0-33.3); Mean Platelet Volume 12.9 fL (9.4-12.4); Monocytes # 0.3 K/mcL (0.0-1.3); Monocytes % 4.8 %; Red Blood Count 2.96 M/mcL (4.19-5.50); Red Cell Distribution Width 19.2 % (11.5-14.5); Segmented Neutrophils % 85.1 %
[2017-01-31 05:21] LABS: Neutrophils # 5.6 K/mcL (1.6-8.9); Platelet Count 75 K/mcL (140-400)
[2017-01-31 05:33] LABS: BUN/Creatinine Ratio 34 (6-26); Blood Urea Nitrogen 31 mg/dL (8-26); Calcium 8.1 mg/dL (8.6-10.8); Carbon Dioxide 25 mEq/L (19-29); Chloride 105 mEq/L (98-109); Chol/HDL Ratio 3.5 (0-4.9); Cholesterol 122 mg/dL (< 200); Glucose 101 mg/dL (70-99); HDL Cholesterol 35 mg/dL (40-59); LDL Cholesterol,Calculated 78 mg/dL (0-99); Osmolality,Calculated 287 (280-300); Potassium 4.7 mEq/L (3.5-4.5); Sodium 135 mEq/L (136-145); Triglycerides 45 mg/dL (< 150); eGFR For African Americans > 60 (> 60); eGFR For Non-African Americans > 60 (> 60)
[2017-01-31 05:40] LABS: Hemoglobin A1C 5.5 %
[2017-01-31 05:46] LABS: Platelet Estimate Decreased (Normal)
[2017-01-31 05:47] LABS: Anisocytosis 1+ (Not Present); Hypochromasia Present (Not Present)
[2017-01-31] MEDS ORDERED: Regadenoson 0.4 MG/5 ML SYRINGE IVP ONE (05:51)
[2017-01-31] MEDS: *HR* Heparin 5,000 UNIT/ML VIAL SQ SCH ×2 (06:06→18:53)
[2017-01-31 06:17] LABS: Phosphorous 4.4 mg/dL (2.3-4.7)
[2017-01-31] MEDS ORDERED: Pantoprazole 40 MG VIAL IVP SCH (09:00)
[2017-01-31] MEDS: Diltiazem CD (24hr) 120 MG CAPSULE PO SCH (09:24)
[2017-01-31] MEDS: Sennosides 8.6 MG TABLET PO SCH ×2 (11:00→21:04)
[2017-01-31] MEDS: Aspirin Enteric Coated 81 MG Tablet PO SCH (11:00)
[2017-01-31] MEDS: Gabapentin 400 MG CAPSULE PO SCH ×3 (11:00→21:04)
[2017-01-31] MEDS: Loratadine 10 MG TABLET PO SCH (11:01)
[2017-01-31] MEDS: Lisinopril 20 MG TABLET PO SCH (11:33)
[2017-01-31] MEDS: Amoxicillin/Clavulanate 500 MG TABLET PO SCH ×2 (14:56→15:02)
--- NOTE | 2017-01-31 15:18 | Internal Med Progress Note ---
Date of Encounter: 01/31/17 Time of Encounter: 09:30 - Assessment and plan (1) Atrial fibrillation with rapid ventricular response Current Visit: Yes Status: Acute Assessment and plan: Patient with paroxysmal atrial fibrillation with RVR. Currently on IV Cardizem. We will titrate it down and place patient on oral Cardizem. Patient having some pauses telemetry. We will monitor closely. Asymptomatic. Not on full anticoagulation due to thrombocytopenia and anemia. On aspirin. Moderate risk for complications. (2) Chest pain Current Visit: Yes Status: Acute Assessment and plan: Chest pain with underlying history of coronary artery disease with mild troponin elevation at 0.06 which is chronic. Okay to proceed with cardiac stress test once chest pain improves and heart rate better controlled. Qualifiers: Chest pain type: precordial pain Qualified Code(s): R07.2 - Precordial pain (3) CAD (coronary artery disease) Current Visit: Yes Status: Chronic Assessment and plan: With chest pain. Continue aspirin, statin, beta jocelyn and lisinopril. Slight troponin elevation which is chronic. Plan to do cardiac stress test after A. fib controlled. Qualifiers: Coronary Disease-Associated Artery/Lesion type: [place] artery [place] vs. transplanted heart: [place] heart Associated angina: without angina Qualified Code(s): I25.10 - Atherosclerotic heart disease of [place] coronary artery without angina pectoris (4) COPD (chronic obstructive pulmonary disease) Current Visit: Yes Status: Chronic Assessment and plan: Doing better today. Shortness of breath has improved. Continue bronchodilators and O2 supplementation as needed. Qualifiers: COPD type: emphysema Emphysema type: unspecified Qualified Code(s): J43.9 - Emphysema, unspecified (5) DVT prophylaxis Current Visit: Yes Status: Acute Assessment and plan: DVT prophylaxis with subcutaneous heparin (6) Elevated troponin Current Visit: Yes Status: Acute Assessment and plan: Chronic troponin elevation. Unchanged from before. (7) HTN (hypertension) Current Visit: Yes Status: Chronic Assessment and plan: Blood pressure is well controlled. Qualifiers: Hypertension type: essential hypertension Qualified Code(s): I10 - Essential (primary) hypertension - Subjective Interval history: Patient complaining of palpitations and chest pain this morning. Nonradiating. Not associated with shortness of breath. No worsening with deep breaths. No fever or chills reported overnight. Still receiving intravenous Cardizem drip. - Constitutional Vitals: Temp Pulse Resp BP Pulse Ox 97.6 F 68 18 106/88 98 01/31/17 11:48 01/31/17 11:48 01/31/17 11:48 01/31/17 11:48 01/31/17 11:48 General appearance: Present: cooperative, A&O X 3, no acute distress, answers questions appropriately - Neck Neck exam general surgery: Present: supple, trachea midline. Absent: lymphadenopathy - Respiratory Respiratory exam: Present: prolonged expiratory phase. Absent: accessory muscle use, rales, rhonchi, wheezes - Cardiovascular Cardiovascular exam: Present: irregular rhythm, +S1, +S2, tachycardia. Absent: diastolic murmur, gallop, rubs, systolic murmur - GI/Abdominal GI/Abdominal exam: Present: normal bowel sounds, soft, no peritoneal signs. Absent: distended, tenderness - Extremities Exam Extremities exam: Present: warm, radial pulses palpable and symetrical. Absent : calf tenderness, cyanotic, pedal edema - Neurological Exam Neurological exam: Present: CN II-XII intact, oriented X3, no focal deficits. Absent: facial droop, speech deficit - Skin Skin exam: Present: dry, intact Internal Medicine: Result - Labs CBC & Chem 7: 01/31/17 05:00 01/31/17 05:00 Labs: Short CBC 01/31/17 Range/Units 05:00 WBC 6.6 (4.3-11.1) K/mcL Hgb 10.5 L (12.9-16.9) g/dL Hct 29.2 L (37.5-50.1) % Plt Count 75 L (140-400) K/mcL Neutrophils # 5.6 (1.6-8.9) K/mcL BMP 01/31/17 05:00 Sodium 135 L Potassium 4.7 H Chloride 105 Carbon Dioxide 25 BUN 31 H Creatinine 0.90 Glucose 101 H Calcium 8.1 L Cardiac Enzymes 01/30/17 01/31/17 Range/Units 23:07 05:00 Troponin I 0.06 H* 0.06 H* (0-0.03) ng/mL Consult Discharge Plan - Plan [facility]errals: [facility] [Primary Care Provider] -
[2017-01-31] MEDS: Magic Mouthwash 10 ML UD Cup PO SCH (15:36)
[2017-01-31] MEDS ORDERED: Acetaminophen 325 MG TABLET PO PRN (16:59)
[2017-01-31] MEDS: Ipratropium/Albuterol Neb 3 ML IH SCH ×4 (17:14→23:25)
[2017-01-31] MEDS ORDERED: Ipratropium/Albuterol Neb 3 ML IH PRN (17:23)
[2017-01-31] MEDS: *HR* HYDROcodone/Acet 5/325 mg TABLET PO PRN (18:49)
[2017-01-31] MEDS: Mirtazapine 15 MG TABLET PO SCH (21:05)
[2017-01-31] MEDS: Latanoprost 2.5 ML BOTTLE BOTH EYES SCH (21:05)
[2017-02-01 03:43] LABS: Mean Corpuscular Volume 99.6 fL (83.0-100.0); Mean Platelet Volume 13.6 fL (9.4-12.4); Red Cell Distribution Width 19.2 % (11.5-14.5)
[2017-02-01 03:44] LABS: Eosinophils # 0.1 K/mcL (0.0-0.6); Eosinophils % 1.1 %; Hematocrit 25.2 % (37.5-50.1); Immature Granulocytes % 0.4 % (0-4); Immature Platelets 14.3 % (1.1-6.1); Lymphocytes # 0.8 K/mcL (0.6-4.6); Lymphocytes % 14.7 %; Mean Corpuscular HGB Conc 35.7 g/dL (31.6-35.5); Mean Corpuscular Hemoglobin 35.6 pg (28.0-33.3); Monocytes # 0.3 K/mcL (0.0-1.3); Monocytes % 5.4 %; Neutrophils # 4.1 K/mcL (1.6-8.9); Red Blood Count 2.53 M/mcL (4.19-5.50); Segmented Neutrophils % 78.4 %
[2017-02-01 03:45] LABS: Platelet Count 70 K/mcL (140-400)
[2017-02-01 03:56] LABS: BUN/Creatinine Ratio 36 (6-26); Blood Urea Nitrogen 38 mg/dL (8-26); Calcium 7.6 mg/dL (8.6-10.8); Carbon Dioxide 25 mEq/L (19-29); Chloride 106 mEq/L (98-109); Glucose 120 mg/dL (70-99); Osmolality,Calculated 282 (280-300); Potassium 4.8 mEq/L (3.5-4.5); Sodium 131 mEq/L (136-145); eGFR For African Americans > 60 (> 60); eGFR For Non-African Americans > 60 (> 60)
[2017-02-01] MEDS: Ipratropium/Albuterol Neb 3 ML IH SCH ×6 (04:14→23:03)
[2017-02-01] MEDS: *HR* Heparin 5,000 UNIT/ML VIAL SQ SCH ×2 (04:40→17:06)
[2017-02-01] MEDS ORDERED: Regadenoson 0.4 MG/5 ML SYRINGE IVP ONE (06:01)
[2017-02-01] MEDS: Magic Mouthwash 10 ML UD Cup PO SCH ×4 (10:31→17:04)
[2017-02-01] MEDS: Loratadine 10 MG TABLET PO SCH (10:31)
[2017-02-01] MEDS: Diltiazem CD (24hr) 120 MG CAPSULE PO SCH (10:31)
[2017-02-01] MEDS: Amoxicillin/Clavulanate 500 MG TABLET PO SCH ×2 (10:31→17:04)
[2017-02-01] MEDS: Aspirin Enteric Coated 81 MG Tablet PO SCH (10:31)
[2017-02-01] MEDS: Gabapentin 400 MG CAPSULE PO SCH ×3 (10:31→21:48)
[2017-02-01] MEDS: Sennosides 8.6 MG TABLET PO SCH ×2 (10:31→21:49)
[2017-02-01] MEDS: Lisinopril 20 MG TABLET PO SCH (10:31)
--- NOTE | 2017-02-01 14:55 | Internal Med Progress Note ---
Date of Encounter: 02/01/17 Time of Encounter: 09:50 - Assessment and plan (1) Atrial fibrillation with rapid ventricular response Current Visit: Yes Status: Acute Assessment and plan: Rate controlled. Patient is currently on Cardizem 120 mg daily and metoprolol 25 mg twice daily. Not having pauses today on telemetry. (2) Chest pain Current Visit: Yes Status: Acute Assessment and plan: Acute chest pain has improved. Awaiting cardiac stress tests which were done tomorrow as patient had a nitroglycerin patch placed that was removed this morning. Qualifiers: Chest pain type: precordial pain Qualified Code(s): R07.2 - Precordial pain (3) CAD (coronary artery disease) Current Visit: Yes Status: Chronic Assessment and plan: Continue aspirin, statin, beta jocelyn and LONI inhibitor. Qualifiers: Coronary Disease-Associated Artery/Lesion type: [place] artery [place] vs. transplanted heart: [place] heart Associated angina: without angina Qualified Code(s): I25.10 - Atherosclerotic heart disease of [place] coronary artery without angina pectoris (4) COPD (chronic obstructive pulmonary disease) Current Visit: Yes Status: Chronic Assessment and plan: On bronchodilators. O2 supplementation. Qualifiers: COPD type: emphysema Emphysema type: unspecified Qualified Code(s): J43.9 - Emphysema, unspecified (5) DVT prophylaxis Current Visit: Yes Status: Acute (6) Elevated troponin Current Visit: Yes Status: Chronic Assessment and plan: Mild chronic troponin elevation. (7) HTN (hypertension) Current Visit: Yes Status: Chronic Assessment and plan: Blood pressure is well controlled Qualifiers: Hypertension type: essential hypertension Qualified Code(s): I10 - Essential (primary) hypertension - Subjective Interval history: Feeling better today. No chest pain. Shortness of breath is improving. No dizziness or lightheadedness. No cough. No fever chills or night sweats. - Constitutional Vitals: Temp Pulse Resp BP Pulse Ox 97.9 F 71 18 120/70 93 02/01/17 11:30 02/01/17 11:30 02/01/17 11:38 02/01/17 11:30 02/01/17 11:38 General appearance: Present: cooperative, A&O X 3, no acute distress, answers questions appropriately - Respiratory Respiratory exam: Present: prolonged expiratory phase, wheezes. Absent: accessory muscle use, rales, rhonchi - Cardiovascular Cardiovascular exam: Present: RRR, +S1, +S2. Absent: diastolic murmur, gallop, rubs, systolic murmur - GI/Abdominal GI/Abdominal exam: Present: normal bowel sounds, soft, no peritoneal signs. Absent: distended, tenderness - Extremities Exam Extremities exam: Present: warm, radial pulses palpable and symetrical. Absent : calf tenderness, cyanotic, pedal edema - Neurological Exam Neurological exam: Present: alert, oriented X3, no focal deficits. Absent: facial droop, speech deficit Internal Medicine: Result - Labs CBC & Chem 7: 02/01/17 03:33 02/01/17 03:33 Labs: Short CBC 02/01/17 Range/Units 03:33 WBC 5.2 (4.3-11.1) K/mcL Hgb 9.0 L D (12.9-16.9) g/dL Hct 25.2 L (37.5-50.1) % Plt Count 70 L (140-400) K/mcL Neutrophils # 4.1 (1.6-8.9) K/mcL BMP 02/01/17 03:33 Sodium 131 L Potassium 4.8 H Chloride 106 Carbon Dioxide 25 BUN 38 H Creatinine 1.05 Glucose 120 H Calcium 7.6 L Consult Discharge Plan - Plan [facility]errals: [facility] [Primary Care Provider] -
[2017-02-01] MEDS: Mirtazapine 15 MG TABLET PO SCH (21:49)
[2017-02-01] MEDS: Latanoprost 2.5 ML BOTTLE BOTH EYES SCH (21:57)
[2017-02-01] MEDS: *HR* HYDROcodone/Acet 5/325 mg TABLET PO PRN (21:58)
[2017-02-02] MEDS ORDERED: Acetaminophen 325 MG TABLET PO PRN ×2 (01:46→01:47)
[2017-02-02] MEDS: Ipratropium/Albuterol Neb 3 ML IH SCH ×6 (03:07→23:02)
[2017-02-02] MEDS: *HR* Heparin 5,000 UNIT/ML VIAL SQ SCH ×2 (05:42→18:13)
[2017-02-02] MEDS ORDERED: Regadenoson 0.4 MG/5 ML SYRINGE IVP ONE (07:30)
[2017-02-02] MEDS: Magic Mouthwash 10 ML UD Cup PO SCH ×3 (11:44→18:12)
[2017-02-02] MEDS: Loratadine 10 MG TABLET PO SCH (11:48)
[2017-02-02] MEDS: Sennosides 8.6 MG TABLET PO SCH ×2 (11:51→20:43)
[2017-02-02] MEDS: Aspirin Enteric Coated 81 MG Tablet PO SCH (11:51)
[2017-02-02] MEDS: Diltiazem CD (24hr) 120 MG CAPSULE PO SCH (11:51)
[2017-02-02] MEDS: Amoxicillin/Clavulanate 500 MG TABLET PO SCH ×2 (11:51→18:12)
[2017-02-02] MEDS: Gabapentin 400 MG CAPSULE PO SCH ×3 (11:51→20:42)
[2017-02-02] MEDS: Lisinopril 20 MG TABLET PO SCH (11:51)
--- NOTE | 2017-02-02 13:13 | Nuclear Medicine Stress Report ---
Regadenoson Nuclear Stress Name: Eddi Post Date of Study: 02/02/2017 Date: 1940 Ht: 66.0 in Medical Record#: [id number] Age: 76 Wt: 125.0 lb Gender: Male Order #: [id number] Location: [facility] Room: [facility] Supervising Provider: Colette Esparza CNP Reading Physician: Deisi Salmeron DO Ordering Physician: Kimberly Saleh MD Primary Care Physician: [facility] Stress Technologist: Candi Rodriguez, CYCLE ANALYST,[facility] Manager Of Revenue: Edmund Ambrosio Indications: Chest Pain, Shortness of breath, Coronary Artery Disease Impression: Perfusion imaging was negative for ischemia or infarct. Pharmacologic ECG was negative for ischemia at the level of heart rate achieved. Gated EF = >70%. History: Hypertension Hypercholesteremia History of Smoking Prior PCI Stress Test Summary: Stress Test Type: Pharmacologic Regadenoson 0.4mg/5ml given IV Baseline Information: Initial Heart Rate: 56 Blood Pressure: 108/42 Stress Information: Test Terminated Due to (primary): As per protocol Maximum Blood Pressure: 108/52 Maximum Heart Rate: 71 Percent Maximum Heart Rate Achieved: 50 Double Product: [id number] Symptoms: No symptoms Nuclear Summary: SPECT myocardial perfusion imaging using Tc99m Sestamibi given intravenously was performed at rest and following cardiac stress testing. The resting images were obtained following initial dose of 10.8 mCi. Following stress an additional dose of 29.4 mCi was given at peak exercise or 30 seconds post regadenoson infusion. Medication Given: Time Medication Dose Units Route Findings: Stress Note * Resting ECG demonstrated normal sinus rhythm with ST-T wave abnormalities. * Occasional PACs noted during stress. * Pharmacologic stress ECG is non diagnostic for ischemia due to baseline non-specific ST and T changes. * Patient had no chest pain during stress. Hemodynamic responses * Normal hemodynamic responses to pharmacologic stress. Study Quality * Study quality was fair. Gated EF > 70% * Gated EF > 70%. Left Ventricle * The left ventricle is not dilated. TID * No evidence of transient ischemic dilatation. Lung Uptake * There is no evidence of increase lung uptake. NORMALS * Normal wall motion. * Normal segmental perfusion in stress. * Normal Segmental Perfusion in rest. Updated by Deisi Salmeron on 02/02/2017 1:06:27 PM electronically signed on 02/02/2017 1:07:16 PM with status of Final
--- NOTE | 2017-02-02 14:08 | Internal Med Progress Note ---
Date of Encounter: 02/02/17 Time of Encounter: 12:00 - Assessment and plan (1) Chest pain Current Visit: Yes Status: Acute Assessment and plan: Patient underwent nuclear stress test today. No signs of ischemia. Negative stress test. Qualifiers: Chest pain type: precordial pain Qualified Code(s): R07.2 - Precordial pain (2) Atrial fibrillation with rapid ventricular response Current Visit: Yes Status: Acute Assessment and plan: Rate controlled. Continue Cardizem and Lopressor. (3) CAD (coronary artery disease) Current Visit: Yes Status: Chronic Assessment and plan: Continue aspirin, statin and beta jocelyn Qualifiers: Coronary Disease-Associated Artery/Lesion type: [place] artery [place] vs. transplanted heart: [place] heart Associated angina: without angina Qualified Code(s): I25.10 - Atherosclerotic heart disease of [place] coronary artery without angina pectoris (4) COPD (chronic obstructive pulmonary disease) Current Visit: Yes Status: Chronic Assessment and plan: On bronchodilators and O2 supplementation Qualifiers: COPD type: emphysema Emphysema type: unspecified Qualified Code(s): J43.9 - Emphysema, unspecified (5) DVT prophylaxis Current Visit: Yes Status: Acute (6) Elevated troponin Current Visit: Yes Status: Chronic Assessment and plan: Chronic troponin elevation (7) HTN (hypertension) Current Visit: Yes Status: Chronic Assessment and plan: Blood pressure is well controlled Qualifiers: Hypertension type: essential hypertension Qualified Code(s): I10 - Essential (primary) hypertension (8) Generalized weakness Current Visit: Yes Status: Acute Assessment and plan: Evaluate with PT and OT. Patient may need placement to skilled rehabilitation - Subjective Interval history: Complains of some mild shortness of breath. No chest pain. Palpitations. No fever chills or night sweats. No nausea or vomiting. Patient complains of generalized weakness and feels unsafe to go home. - Constitutional Vitals: Temp Pulse Resp BP Pulse Ox 96.9 F L 92 18 140/70 95 02/02/17 11:19 02/02/17 11:19 02/02/17 11:19 02/02/17 11:19 02/02/17 11:19 General appearance: Present: cooperative, A&O X 3, no acute distress, answers questions appropriately - Neck Neck exam general surgery: Present: supple, trachea midline. Absent: lymphadenopathy - Respiratory Respiratory exam: Present: prolonged expiratory phase, wheezes. Absent: accessory muscle use, rales, rhonchi - Cardiovascular Cardiovascular exam: Present: RRR, +S1, +S2. Absent: diastolic murmur, gallop, rubs, systolic murmur - GI/Abdominal GI/Abdominal exam: Present: normal bowel sounds, soft, no peritoneal signs. Absent: distended, tenderness - Neurological Exam Neurological exam: Present: alert, oriented X3, no focal deficits. Absent: facial droop, speech deficit Internal Medicine: Result - Labs CBC & Chem 7: 02/01/17 03:33 02/01/17 03:33 Consult Discharge Plan - Plan [facility]errals: [facility]Primary Care Provider[facility] -
[2017-02-02] MEDS: Mirtazapine 15 MG TABLET PO SCH (20:43)
[2017-02-02] MEDS: *HR* HYDROcodone/Acet 5/325 mg TABLET PO PRN (20:48)
[2017-02-02] MEDS: Latanoprost 2.5 ML BOTTLE BOTH EYES SCH (20:52)
[2017-02-03] MEDS: Ipratropium/Albuterol Neb 3 ML IH SCH ×3 (03:30→11:02)
[2017-02-03] MEDS: *HR* Heparin 5,000 UNIT/ML VIAL SQ SCH (06:09)
[2017-02-03] MEDS: *HR* HYDROcodone/Acet 5/325 mg TABLET PO PRN (06:14)
[2017-02-03 07:08] VITALS: BP 114/65
--- NOTE | 2017-02-03 10:38 | Discharge Summary ---
Date of Encounter: 02/03/17 Time of Encounter: 08:45 - Discharge Diagnosis (1) Chest pain Priority: Primary Status: Acute Qualifiers: Chest pain type: precordial pain Qualified Code(s): R07.2 - Precordial pain (2) Atrial fibrillation with rapid ventricular response Priority: Secondary Status: Acute (3) CAD (coronary artery disease) Priority: Secondary Status: Chronic Qualifiers: Coronary Disease-Associated Artery/Lesion type: [place] artery [place] vs. transplanted heart: [place] heart Associated angina: without angina Qualified Code(s): I25.10 - Atherosclerotic heart disease of [place] coronary artery without angina pectoris (4) COPD (chronic obstructive pulmonary disease) Priority: Secondary Status: Chronic Qualifiers: COPD type: emphysema Emphysema type: unspecified Qualified Code(s): J43.9 - Emphysema, unspecified (5) DVT prophylaxis Priority: Secondary Status: Acute (6) Elevated troponin Priority: Secondary Status: Chronic (7) HTN (hypertension) Priority: Secondary Status: Chronic Qualifiers: Hypertension type: essential hypertension Qualified Code(s): I10 - Essential (primary) hypertension (8) Generalized weakness Priority: Secondary Status: Acute - Discharge Medications Prescriptions: Diltiazem CD (24hr) [Cardizem CD] 120 mg PO DAILY #30 cap.er.24h Pravastatin Sodium [Pravachol] 40 mg PO HS #30 tablet Home Medications: Albuterol Sulfate [Albuterol Inhaler] 2 puff IH QID PRN 09/18/16 [History] Aspirin Enteric Coated [Aspirin EC] 81 mg PO DAILY 09/18/16 [History] Bisacodyl [Laxative] 5 mg PO Q48H 09/18/16 [History] Budesonide/Formoterol 160/4.5 [Symbicort 160/4.5] 2 puff IH BIDR #1 hfa.aer.ad 09/18/16 [Rx] Gabapentin [Neurontin] 800 mg PO TID 09/18/16 [History] Hydrophilic Cream [Basle] 1 appl TP DAILY 09/18/16 [History] Ketotifen Fumarate 1 drop OP BID 09/18/16 [History] Loratadine [Allergy Relief] 10 mg PO DAILY 09/18/16 [History] Mirtazapine [Remeron] 15 mg PO HS 09/18/16 [History] Multivitamin [Multivitamins] 1 tab PO DAILY 09/18/16 [History] Peg 400/Hypromellose/Glycerin [Visine Tired Eye Relief Drop] 1 drop BOTH EYES TID 09/18/16 [History] Sennosides [Senokot] 17.2 tab PO BID 09/18/16 [History] Simethicone [Bicarsim] 160 mg PO TID PRN 09/18/16 [History] Lactose-Reduced Food [Ensure Liquid] 1 bottle PO 6XD 10/15/16 [History] Magic Mouthwash [Magic Mouthwash BLM] 10 ml PO QID PRN #240 ml 11/15/16 [Rx] LORazepam [Ativan] 1 mg PO Q6H PRN #60 tablet 12/25/16 [Rx] Ondansetron [Zofran] 8 mg PO Q8HR PRN #90 tablet 12/25/16 [Rx] Tamsulosin HCl [Flomax] 0.4 mg PO HS #30 cap.er.24h 12/25/16 [Rx] Betamethasone Dipropionate 1 appl TP DAILY PRN 01/16/17 [History] Carbamide Peroxide [Ear Drops] 4 drop OT DAILY 01/16/17 [History] Clindamycin Phosphate [Cleocin T] 1 appl TP DAILY PRN 01/16/17 [History] Diphenoxylate/Atropine [Lomotil 2.5 mg/0.025 mg] 2 each PO QID PRN 01/16/17 [ History] Hydrocortisone 1% CREAM [Cortaid] 1 appl TP DAILY PRN 01/16/17 [History] Latanoprost [Xalatan] 1 drop OP HS 01/16/17 [History] Lidocaine/Prilocaine [Emla] 1 appl TP AD PRN 01/16/17 [History] Oxycodone HCl [Oxaydo] 5 mg PO BID PRN 01/16/17 [History] Pantoprazole Sodium [Protonix] 40 mg PO DAILY 01/16/17 [History] Prochlorperazine Maleate [Compazine] 10 mg PO Q6H PRN 01/16/17 [History] Saliva Substitute Combo No.3 [Aquoral] 4 spray MM QID 01/16/17 [History] Thiamine (B-1) [Vitamin B-1] 100 mg PO BID 01/16/17 [History] Zolpidem [Ambien] 5 mg PO HS PRN 01/16/17 [History] traZODone [TraZODone] 50 - 100 mg PO HS PRN 01/16/17 [History] Furosemide [Lasix] 20 mg PO DAILY #30 tablet 01/20/17 [Rx] Lisinopril [Zestril] 20 mg PO DAILY #30 tablet 01/20/17 [Rx] Metoprolol [Lopressor] 25 mg PO BID #60 tablet 01/20/17 [Rx] Amoxicillin/Clavulanate [Augmentin] 500 mg PO BIDWM #20 tablet 01/28/17 [Rx] Nystatin [Nystatin Suspension] 100,000 units PO QID #120 ml 01/28/17 [Rx] Diltiazem CD (24hr) [Cardizem CD] 120 mg PO DAILY #30 cap.er.24h 02/03/17 [Rx] Pravastatin Sodium [Pravachol] 40 mg PO HS #30 tablet 02/03/17 [Rx] Allergies/Adverse Reactions: Allergies baclofen Allergy (Verified 01/24/17 04:01) Rash cetuximab [From Erbitux] Allergy (Verified 01/24/17 04:01) Hives Diclofenac Allergy (Verified 01/24/17 04:01) Itching ibuprofen Adverse Reaction (Verified 01/24/17 04:01) Nausea Procedures/tests Complete & Pending: Procedures Performed prior 72 hours Category Date Time Status NM marco perf SPECT multi [NM] Routine Exams 02/01/17 14:47 Taken SP pharm nuclear stress Routine Y 02/01/17 14:47 Completed Date of admission: 01/30/17 20:30 [facility] Consults: 01/30/17 22:00 Consult to Nutrition [CONS] Routine Comment: Consulting Provider: NUTRITION Reason for Dietary Consult: MST Score Consult to Medical Device Engineer [CONS] Routine Reason for SW Consult: Home alone with home health services 01/31/17 15:22 Consult to Physical Therapy [CONS] Routine Comment: Evaluate, develop and implement POC Reason for Consult: Required for referral to [place] [facility] 01/31/17 15:23 Consult to Occupational Therapy [CONS] Routine Comment: Evaluate, develop and implement POC Reason for Consult: Required for referral to [place] [facility] Discharging clinician: Kimberly Saleh Anticipated date of discharge: 02/03/17 - Patient Status Disposition: Home Health Service Condition: Good Functional capacity at discharge: uses cane/walker Overall status at discharge: patient is progressing back to baseline - Discharge Instructions Instructions: Chest Pain (DC), Atrial Fibrillation (DC), Chronic Obstructive Pulmonary Disease (DC) Follow Up With: [facility] [Primary Care Provider] - (in 1-2 weeks) Additional Instructions: With Cardiology in 1-2 weeks for AFIB - Diet and Activity Activity: increase activity as tolerated Diet: low fat, low cholesterol, low salt diet Hospital course: Mr. Post is a 76 year old male - Time Spent with Patient Total time spent providing and/or coordinating discharge services: Greater than 30 minutes (45 min) - Constitutional Vitals: Temp Pulse Resp BP Pulse Ox 97.9 F 117 18 114/65 98 02/03/17 07:02 02/03/17 07:02 02/03/17 07:02 02/03/17 07:02 02/03/17 07:02 General appearance: Present: cooperative, A&O X 3, no acute distress, answers questions appropriately - Respiratory Respiratory exam: Present: prolonged expiratory phase, wheezes. Absent: accessory muscle use, rales, rhonchi - Cardiovascular Cardiovascular exam: Present: RRR, +S1, +S2. Absent: diastolic murmur, gallop, rubs, systolic murmur - GI/Abdominal GI/Abdominal exam: Present: normal bowel sounds, soft, no peritoneal signs. Absent: distended, tenderness
--- NOTE | 2017-02-03 10:47 | Physician Discharge Referral ---
Home Health/Hosp Referral Info Transfer to: Home Health Provider in Charge Post Discharge: PCP - Diagnosis (1) Chest pain Priority: Primary Status: Acute (2) Atrial fibrillation with rapid ventricular response Priority: Secondary Status: Acute (3) CAD (coronary artery disease) Priority: Secondary Status: Chronic (4) COPD (chronic obstructive pulmonary disease) Priority: Secondary Status: Chronic (5) DVT prophylaxis Priority: Secondary Status: Acute (6) Elevated troponin Priority: Secondary Status: Chronic (7) HTN (hypertension) Priority: Secondary Status: Chronic (8) Generalized weakness Priority: Secondary Status: Acute - Respiratory Orders Oxygen / L per min (2) Smoking Cessation: Smoking cessation has been advised. For more information, call the [place] Tobacco Quit Line at 1-820-FBUJ-NOW. - Diet/Nutrition Diet/Nutrition Orders: Cardiac - Activity Activity Orders: Walker - Services Needed Following services are medically necessary services: Nursing, Home Health Aide, Physical Therapy, Occupational Therapy - Transfer Medications Prescriptions: Diltiazem CD (24hr) [Cardizem CD] 120 mg PO DAILY #30 cap.er.24h Pravastatin Sodium [Pravachol] 40 mg PO HS #30 tablet Home Medications: Albuterol Sulfate [Albuterol Inhaler] 2 puff IH QID PRN 09/18/16 [History] Aspirin Enteric Coated [Aspirin EC] 81 mg PO DAILY 09/18/16 [History] Bisacodyl [Laxative] 5 mg PO Q48H 09/18/16 [History] Budesonide/Formoterol 160/4.5 [Symbicort 160/4.5] 2 puff IH BIDR #1 hfa.aer.ad 09/18/16 [Rx] Gabapentin [Neurontin] 800 mg PO TID 09/18/16 [History] Hydrophilic Cream [Basle] 1 appl TP DAILY 09/18/16 [History] Ketotifen Fumarate 1 drop OP BID 09/18/16 [History] Loratadine [Allergy Relief] 10 mg PO DAILY 09/18/16 [History] Mirtazapine [Remeron] 15 mg PO HS 09/18/16 [History] Multivitamin [Multivitamins] 1 tab PO DAILY 09/18/16 [History] Peg 400/Hypromellose/Glycerin [Visine Tired Eye Relief Drop] 1 drop BOTH EYES TID 09/18/16 [History] Sennosides [Senokot] 17.2 tab PO BID 09/18/16 [History] Simethicone [Bicarsim] 160 mg PO TID PRN 09/18/16 [History] Lactose-Reduced Food [Ensure Liquid] 1 bottle PO 6XD 10/15/16 [History] Magic Mouthwash [Magic Mouthwash BLM] 10 ml PO QID PRN #240 ml 11/15/16 [Rx] LORazepam [Ativan] 1 mg PO Q6H PRN #60 tablet 12/25/16 [Rx] Ondansetron [Zofran] 8 mg PO Q8HR PRN #90 tablet 12/25/16 [Rx] Tamsulosin HCl [Flomax] 0.4 mg PO HS #30 cap.er.24h 12/25/16 [Rx] Betamethasone Dipropionate 1 appl TP DAILY PRN 01/16/17 [History] Carbamide Peroxide [Ear Drops] 4 drop OT DAILY 01/16/17 [History] Clindamycin Phosphate [Cleocin T] 1 appl TP DAILY PRN 01/16/17 [History] Diphenoxylate/Atropine [Lomotil 2.5 mg/0.025 mg] 2 each PO QID PRN 01/16/17 [ History] Hydrocortisone 1% CREAM [Cortaid] 1 appl TP DAILY PRN 01/16/17 [History] Latanoprost [Xalatan] 1 drop OP HS 01/16/17 [History] Lidocaine/Prilocaine [Emla] 1 appl TP AD PRN 01/16/17 [History] Oxycodone HCl [Oxaydo] 5 mg PO BID PRN 01/16/17 [History] Pantoprazole Sodium [Protonix] 40 mg PO DAILY 01/16/17 [History] Prochlorperazine Maleate [Compazine] 10 mg PO Q6H PRN 01/16/17 [History] Saliva Substitute Combo No.3 [Aquoral] 4 spray MM QID 01/16/17 [History] Thiamine (B-1) [Vitamin B-1] 100 mg PO BID 01/16/17 [History] Zolpidem [Ambien] 5 mg PO HS PRN 01/16/17 [History] traZODone [TraZODone] 50 - 100 mg PO HS PRN 01/16/17 [History] Furosemide [Lasix] 20 mg PO DAILY #30 tablet 01/20/17 [Rx] Lisinopril [Zestril] 20 mg PO DAILY #30 tablet 01/20/17 [Rx] Metoprolol [Lopressor] 25 mg PO BID #60 tablet 01/20/17 [Rx] Amoxicillin/Clavulanate [Augmentin] 500 mg PO BIDWM #20 tablet 01/28/17 [Rx] Nystatin [Nystatin Suspension] 100,000 units PO QID #120 ml 01/28/17 [Rx] Diltiazem CD (24hr) [Cardizem CD] 120 mg PO DAILY #30 cap.er.24h 02/03/17 [Rx] Pravastatin Sodium [Pravachol] 40 mg PO HS #30 tablet 02/03/17 [Rx] Allergies/Adverse Reactions: Allergies baclofen Allergy (Verified 01/24/17 04:01) Rash cetuximab [From Erbitux] Allergy (Verified 01/24/17 04:01) Hives Diclofenac Allergy (Verified 01/24/17 04:01) Itching ibuprofen Adverse Reaction (Verified 01/24/17 04:01) Nausea Certification: Further, I certify that my clinical findings support that this patient is homebound (i.e. absences from home require considerable and taxing effort and are for medical reasons or [facility] or infrequently or short duration when for other reasons) because: Homebound Reason: Patient requires assistance of a person or device to safely leave home Attestation: My signature below is to certify that this patient is under my care and that I, or nurse practitioner, or a physician's operator assistant i cementing working with me, has a face-to -face encounter with this patient.
[2017-02-03] MEDS: Sennosides 8.6 MG TABLET PO SCH (11:19)
[2017-02-03] MEDS: Lisinopril 20 MG TABLET PO SCH (11:19)
[2017-02-03] MEDS: Amoxicillin/Clavulanate 500 MG TABLET PO SCH (11:19)
[2017-02-03] MEDS: Gabapentin 400 MG CAPSULE PO SCH (11:19)
[2017-02-03] MEDS: Magic Mouthwash 10 ML UD Cup PO SCH ×2 (11:19→11:21)
[2017-02-03] MEDS: Diltiazem CD (24hr) 120 MG CAPSULE PO SCH (11:19)
[2017-02-03] MEDS: Loratadine 10 MG TABLET PO SCH (11:20)
[2017-02-03] MEDS: Aspirin Enteric Coated 81 MG Tablet PO SCH (11:20)
== END 2017-02-03 12:45 | disposition home health service (06) | DRG 313 ==
LOC: 2NENU → SUATTDRO 20:30
PROVIDERS: ADMIT Internal Medicine; ATTEND Internal Medicine

== ENCOUNTER 2017-06-14 20:54 | Inpatient (IN) ==
[2017-06-15] MEDS ORDERED: *HR* Morphine 2 MG/ML SYRINGE IVP PRN (01:04)
[2017-06-15] MEDS ORDERED: *HR* HYDROcodone/Acet 5/325 mg TABLET PO PRN (01:04)
[2017-06-15] MEDS ORDERED: Naloxone 0.4 MG/ML INJ IVP PRN (01:04)
[2017-06-15] MEDS ORDERED: Acetaminophen 325 MG TABLET PO PRN (01:04)
--- NOTE | 2017-06-15 01:23 | Internal Med History&Physical ---
Date of Encounter: 06/15/17 Time of Encounter: 01:22 Assessment and Plan (1) Atrial fibrillation with rapid ventricular response Current visit: Yes Status: Acute COntinue cardizem drip with goal to transition to oral Resume home dose of po diltiazem ECHO ordered, recent stress test 01/2017 showed EF >70% without ischemia Elevated troponin 0.04 is posibly from demand, will trend Patient is chronically thrombocytopenic, and chart review reveals contraindication to anticoagulation due to this patient is also not on ASA Received one dose of lovenox SQ from referral hospital consult cardiology (2) Congestive heart failure Current visit: Yes Status: Acute Normal EF per prior ECHOS but patient has diastolic dysfunction IV lasix 40 mg daily Daily weight , strict I/O Fluid restriction Qualifiers: Congestive heart failure type: diastolic Congestive heart failure chronicity: acute on chronic Qualified Code(s): I50.33 - Acute on chronic diastolic (congestive) heart failure (3) Hyponatremia Current visit: Yes Status: Chronic Chronic, stable (4) CAD (coronary artery disease) Current visit: Yes Status: Chronic Continue statin, patient is not on ASA, reason unknown Qualifiers: Coronary Disease-Associated Artery/Lesion type: [place] artery [place] vs. transplanted heart: saxman heart Associated angina: without angina Qualified Code(s): I25.10 - Atherosclerotic heart disease of sax[place] coronary artery without angina pectoris (5) COPD (chronic obstructive pulmonary disease) Current visit: Yes Status: Chronic Not in exacerbation at this time Qualifiers: COPD type: unspecified COPD Qualified Code(s): J44.9 - Chronic obstructive pulmonary disease, unspecified (6) Elevated troponin Current visit: Yes Status: Acute Likely secondary to demand ischemia Trend troponin EKG with non-specific ST changes in the setting of Afib Follow ECHO report (7) HTN (hypertension) Current visit: Yes Status: Chronic Controlled at this time Qualifiers: Hypertension type: essential hypertension Qualified Code(s): I10 - Essential (primary) hypertension (8) Head and neck cancer Current visit: Yes Status: Chronic Chronic,stable (9) Protein-calorie malnutrition, severe Current visit: Yes Status: Chronic Continue home meds Nutritonal supplement Internal Medicine - H&P: HPI Chief complaint: Shortness of breath Admitted From: Home Plans for Post Hospital Care: Home History of present illness: Mr. Post is a 77 year old male with PMH of head and neck CA, COPD, CAD, Afib with prior admissions for RVR, NOt coagulation candidate due to chronic thrombocytopenia, also patient has chronic hyponatremia Presented to [facility] complaining that he was more more short of breath. No cough,fever or chills, no nausea, vomiting or diarrhea. Reported also palpitations associated with dizziness and light headedness He was found to be in Afib with RVR at the referring center , his RVR resolved with Cardizem bolus and infusion Work up revealed pulmonary edema as well as elevated BNP 1304, troponin 0.04. Patient did not have chest pain EKG showed non-specific ST segment changes Patient also received one dose of SQ lovenox prior to transfer He is resting comfortably and asymptomatic at the time of review, his HR is still mostly uncontrolled He states his shortness of breath has improved but he is now having abdominal pain, said to be generalized, no known aggravating or relieving factors, no nausea, vomiting, he has not had a BM since arrival, but his stool is brown He is also requesting something to help with sleep He is laying flat and in no form of distress Past Med Surg Social Fam HX - Past Medical History Medical history: arthritis, atrial fibrillation, cancer, CHF, COPD, coronary artery disease, CVA, glaucoma, hepatitis, hypertension, myocardial infarction, TIA Psychiatric history: no psych history - Past Surgical History Surgical History: carotid endarterectomy, hip replacement, knee replacement - Social History Smoking Status: Current every day smoker Smokeless Tobacco Status: No Alcohol use: none Drug use: none - Family History Father Living Status: Hx Family Cardiac Disorders: Yes Mother Living Status: Hx Family Cardiac Disorders: Yes Internal Medicine - H&P: Meds Albuterol Sulfate [Albuterol Inhaler] 2 puff IH QID PRN 09/18/16 [History] Bisacodyl [Laxative] 5 mg PO Q48H 09/18/16 [History] Budesonide/Formoterol 160/4.5 [Symbicort 160/4.5] 2 puff IH BIDR #1 hfa.aer.ad 09/18/16 [Rx] Gabapentin [Neurontin] 800 mg PO TID 09/18/16 [History] Hydrophilic Cream [Basle] 1 appl TP DAILY 09/18/16 [History] Ketotifen Fumarate 1 drop OP BID 09/18/16 [History] Multivitamin [Multivitamins] 1 tab PO DAILY 09/18/16 [History] Peg 400/Hypromellose/Glycerin [Visine Tired Eye Relief Drop] 1 drop BOTH EYES TID 09/18/16 [History] Lactose-Reduced Food [Ensure Liquid] 1 bottle PO 6XD 10/15/16 [History] Tamsulosin HCl [Flomax] 0.4 mg PO HS #30 cap.er.24h 12/25/16 [Rx] Carbamide Peroxide [Ear Drops] 4 drop OT DAILY 01/16/17 [History] Latanoprost [Xalatan] 1 drop OP HS 01/16/17 [History] Oxycodone HCl [Oxaydo] 5 mg PO BID PRN 01/16/17 [History] Pravastatin Sodium [Pravachol] 40 mg PO HS #30 tablet 02/03/17 [Rx] Albuterol Neb [AccuNeb] 0.63 mg IH Q6H PRN 04/22/17 [History] Diltiazem HCl [Diltiazem 12Hr ER] 120 mg PO DAILY 04/22/17 [History] Diphenoxylate/Atropine [Lomotil 2.5 mg/0.025 mg] 2 each PO QID PRN 04/22/17 [ History] Escitalopram [Lexapro] 10 mg PO DAILY 04/22/17 [History] Ferrous Sulfate 325 mg PO Q48H 04/22/17 [History] Furosemide [Lasix] 20 mg PO 3XW 04/22/17 [History] GuaiFENesin/Dextromethorphan [Robitussin/DM] 10 ml PO Q6HR PRN 04/22/17 [History ] Lactobacillus [Culturelle] 1 each PO BID 04/22/17 [History] Lidocaine Patch [Lidoderm 5% patch] 1 each TP DAILY 04/22/17 [History] Lidocaine Viscous Oral Soln 15 ml MM Q4H PRN 04/22/17 [History] Loratadine [Allergy Relief] 10 mg PO DAILY 04/22/17 [History] Metoprolol Succinate 12.5 mg PO DAILY 04/22/17 [History] Midodrine HCl 2.5 mg PO BID 04/22/17 [History] Nitroglycerin [Nitrostat] 0.4 mg SL AD PRN 04/22/17 [History] Pantoprazole Sodium [Protonix] 40 mg PO DAILY 04/22/17 [History] Prochlorperazine Maleate [Compazine] 10 mg PO Q6HR PRN 04/22/17 [History] Sennosides [Laxative] 17.2 mg PO BID 04/22/17 [History] Simethicone [Gas-X] 160 mg PO TID PRN 04/22/17 [History] Thiamine (B-1) [Vitamin B-1] 100 mg PO DAILY 04/22/17 [History] Tramadol HCl [Ultram] 50 mg PO QID PRN 04/22/17 [History] Zolpidem [Ambien] 5 mg PO HS 04/22/17 [History] Saliva Stimulant [Biotene Moisturizing Rinse] 100 spray MM 2-4XD #1 bottle 05/13 [Rx] hydrALAZINE [HydrALAZINE] 25 mg PO Q6HR PRN 05/13/17 [History] 3 Allergy/AdvReac Type Severity Reaction Status Date / Time baclofen Allergy Rash Verified 05/13/17 15:38 cetuximab [From Erbitux] Allergy Hives Verified 05/13/17 15:38 Diclofenac Allergy Itching Verified 05/13/17 15:38 ibuprofen AdvReac Nausea Verified 05/13/17 15:38 All Systems PM: A 10-system review of systems was performed and is negative for pertinent findings except as documented above in the HPI. - Constitutional Constitutional: as per HPI - EENT Eyes: as per HPI Ears: as per HPI Nose, mouth and throat: as per HPI - Cardiovascular Cardiovascular ROS IM: as per HPI - Respiratory Respiratory: as per HPI - Gastrointestinal Gastrointestinal: as per HPI - Musculoskeletal Musculoskeletal ROS IM: as per HPI - Integumentary Integumentary IM: as per HPI - Neurological Neurological ROS: as per HPI - Hematologic/Lymphatic Hematologic/Lymphatic: as per HPI - Constitutional Vitals: Temp Pulse Resp BP Pulse Ox 97.6 F 74 20 140/67 98 06/14/17 23:08 06/14/17 23:08 06/14/17 23:08 06/14/17 23:08 06/14/17 23:08 VS: HR is tachycardic and irregular, O2 sat normal on room air Not in any form of distress Cachectic, discheveled Laying flat in bed, conjuctiva is pink, not cyanosed, sclera is white Chest is CTAB on auscultation HS S1, S2 , irregular, tachycardic Abdomen is soft and not tender, no palpably enlarged organs Extremities: No edema
[2017-06-15] MEDS ORDERED: Mirtazapine 15 MG TABLET PO ONE (01:50)
[2017-06-15] MEDS ORDERED: 0.9 % Sodium Chloride 250 ML ONE (02:41)
[2017-06-15] MEDS: dilTIAZem HCl 100 MG in D5% in Water 50 ML IVC SCH ×2 (03:39→11:31)
[2017-06-15 03:58] LABS: Basophils % 0.4 %; Eosinophils % 0.4 %; Hematocrit 38.1 % (37.5-50.1); Hemoglobin 13.5 g/dL (12.9-16.9); Immature Granulocytes % 0.2 % (0-4); Lymphocytes # 1.5 K/mcL (0.6-4.6); Lymphocytes % 26.4 %; Mean Corpuscular HGB Conc 35.4 g/dL (31.6-35.5); Mean Corpuscular Hemoglobin 34.1 pg (28.0-33.3); Mean Corpuscular Volume 96.2 fL (83.0-100.0); Mean Platelet Volume 11.8 fL (9.4-12.4); Monocytes # 0.8 K/mcL (0.0-1.3); Monocytes % 14.1 %; Neutrophils # 3.3 K/mcL (1.6-8.9); Platelet Count 104 K/mcL (140-400); Red Blood Count 3.96 M/mcL (4.19-5.50); Red Cell Distribution Width 14.6 % (11.5-14.5); Segmented Neutrophils % 58.5 %
[2017-06-15 04:10] LABS: BUN/Creatinine Ratio 15 (6-26); Blood Urea Nitrogen 12 mg/dL (8-26); Calcium 8.8 mg/dL (8.6-10.8); Carbon Dioxide 22 mEq/L (19-29); Chloride 100 mEq/L (98-109); Glucose 98 mg/dL (70-99); Magnesium 1.8 mg/dL (1.6-2.6); Osmolality,Calculated 270 (280-300); Potassium 3.4 mEq/L (3.5-4.5); Sodium 130 mEq/L (136-145); eGFR For African Americans > 60 (> 60); eGFR For Non-African Americans > 60 (> 60)
[2017-06-15] MEDS: *HR* Heparin 5,000 UNIT/ML VIAL SQ SCH ×2 (07:39→18:52)
[2017-06-15] MEDS: Budesonide/Formoterol 160/4.5 MDI IH SCH ×2 (07:53→20:23)
[2017-06-15] MEDS ORDERED: Metoprolol XL (24 HR) Succ 25 MG TAB.ER.24H PO SCH (09:00)
[2017-06-15] MEDS ORDERED: Thiamine (B-1) 100 MG TABLET PO SCH (09:00)
[2017-06-15] MEDS ORDERED: Diltiazem CD (24hr) 120 MG CAPSULE PO SCH (09:00)
[2017-06-15] MEDS ORDERED: Ondansetron 4 MG/2 ML VIAL IVP PRN (09:28)
--- NOTE | 2017-06-15 09:30 | Event Note ---
<Rodrigo Burdick - Last Filed: 06/15/17 12:19> Date of Encounter: 06/15/17 Time of Encounter: 10:50 Subjective: Patient seen and examined. HR between 75 and 100on Cardizem ggt. Patient reports decreased appetite for 2 days now and nausea this AM. He has constant abdominal pain and reports prior h/o cirrhosis. He denies CP reports SOB has resolved. He denies active bleeding or recent weight loss. Objective: Last Vital Signs Temp 98.2 F 06/15/17 06:20 Pulse 80 06/15/17 06:20 Resp 18 06/15/17 07:53 BP 152/83 06/15/17 06:20 Pulse Ox 96 06/15/17 07:53 Lab Results, Last 24 hours 06/15/17 06/15/17 06/15/17 03:45 03:45 03:45 WBC 5.6 Hgb 13.5 Hct 38.1 Plt Count 104 L Sodium 130 L Potassium 3.4 L Chloride 100 Carbon Dioxide 22 BUN 12 Creatinine 0.79 Glucose 98 Calcium 8.8 Magnesium 1.8 Troponin I 0.05 H* General: WN/WD, conversant, mild distress HEENT: Mucus Membranes dry Neck: JVD noted, mild posterior neck TTP Cardiac: Reg Rate and Rhythm, Normal S1 and S2, No Murmur Lungs: Diminished breath sounds bilaterally Abdomen: Soft, diffuse TTP worse RUQ and LLQ, no distension Extremities: No significant pedal edema, LUE below elbow amputation Neuro: A& O x3, responsive Psych: normal mood and affect Assessment: 1) A-fib RVR 2) Elevated troponin 3) CHF exacerbation 4) Abdominal pain, h/o cirrhosis 5) Severe protein calorie malnutrition 6) CAD 7) Hyponatremia, chronic 8) Thrombocytopenia 9) Remote throat/ esophageal cancer and XRT 1 year ago 10) DVT prophylaxis Plan: 1) HR now converted to NSR. Cardiology consulted. Wean off Cardizem ggt and increased home Toprol dose to 25 daily 2) Trend serial troponin. Cardiology following 3) IV diuresis at this time with careful monitoring of renal function and potassium 4) CT abd/plv pendin. RUQ ultrasound pending, LFTs, amylase, lipase, and acute hepatitis panel ordered. Start empiric Cipro & Flagyl (Day 1) 5) Repairer And Checker consulted 6) Resume home ASA 7) Labs demonstrate reduced serum osmolality. 8) Continue to monitor 9) Continue outpatient Hem/onc follow up 10) Heparin subq TID <Jc Guerrier H - Last Filed: 06/15/17 12:21> Date of Encounter: 06/15/17 Intractable abdominal pain, since CT scan of the abdomen and pelvis with oral and IV contrast Consider possible colitis versus diverticulitis. Start ciprofloxacin and Flagyl IV Consider putting the patient on nothing by mouth status I examined this patient and my medical decision-making was reviewed with the Resident Physician. I agree with the documented findings, disposition and treatment plan as described except to the extent set forth below.
--- NOTE | 2017-06-15 10:04 | Cardiology Consult Note ---
Date of Encounter: 06/15/17 Time of Encounter: 09:00 Assessment and Plan (1) Atrial fibrillation with rapid ventricular response Current Visit: Yes Status: Acute Presented with AF RVR maybe exacerbated by mild volume overload - CT chest with small pleural effusion, CXR demonstrates vascular congestion. Labs demonstrate reduced serum osmolality. Hyponatremia appears intermittently chronic. Agree with IV diuresis at this time with careful watch on renal function and potassium. Would ideally recommend starting an AV nick jocelyn such as Toprol. However, his home medications have not yet been reconciled and we are uncertain what he is taking at home. Once that is reviewed, recommend starting an AV nick jocelyn. In addition, he has known thrombocytopenia but previously was on low-dose aspirin when admitted in December 2016. Would recommend restarting low-dose aspirin if ok from a Hematologic/Oncologic standpoint - will defer to primary team. (2) Elevated troponin Current Visit: Yes Status: Acute Discussion w patient/family: The assessment and plan as outlined above was discussed with the patient and/or family members who expressed understanding and agreement. All questions were answered. Thank you for involving us in the care of your patient. Please call with any questions. History of Present Illness Consult date: 06/15/17 Requesting physician: cJ Guerrier Consult reason: Atrial fibrillation Chief complaint: SOB, palpitations, nausea History of present illness: Mr. Post is a 77 year old male presenting with SOB, palpitations and nausea with abdominal discomfort. He was found to be in AF RVR. He has known paroxysmal atrial fibrillation. History also includes CAD status post 2 stents at [facility] remotely, having an NSTEMI in September 2016. Medical management was recommended given esophageal cancer and thrombocytopenia. Most recent echo demonstrated an ejection fraction of 55%. Past Med Surg Social Fam HX - Past Medical History Medical history: arthritis, atrial fibrillation, cancer, CHF, COPD, coronary artery disease, CVA, glaucoma, hepatitis, hypertension, myocardial infarction, TIA Psychiatric history: no psych history - Past Surgical History Surgical History: carotid endarterectomy, hip replacement, knee replacement - Social History Smoking Status: Current every day smoker Smokeless Tobacco Status: No Alcohol use: none Drug use: none - Family History Father Living Status: Hx Family Cardiac Disorders: Yes Mother Living Status: Hx Family Cardiac Disorders: Yes Medications and Allergies Albuterol Sulfate [Albuterol Inhaler] 2 puff IH QID PRN 09/18/16 [History] Bisacodyl [Laxative] 5 mg PO Q48H 09/18/16 [History] Budesonide/Formoterol 160/4.5 [Symbicort 160/4.5] 2 puff IH BIDR #1 hfa.aer.ad 09/18/16 [Rx] Gabapentin [Neurontin] 800 mg PO TID 09/18/16 [History] Hydrophilic Cream [Basle] 1 appl TP DAILY 09/18/16 [History] Ketotifen Fumarate 1 drop OP BID 09/18/16 [History] Multivitamin [Multivitamins] 1 tab PO DAILY 09/18/16 [History] Peg 400/Hypromellose/Glycerin [Visine Tired Eye Relief Drop] 1 drop BOTH EYES TID 09/18/16 [History] Tamsulosin HCl [Flomax] 0.4 mg PO HS #30 cap.er.24h 12/25/16 [Rx] Carbamide Peroxide [Ear Drops] 4 drop BOTH EYES DAILY 01/16/17 [History] Latanoprost [Xalatan] 1 drop OP HS 01/16/17 [History] Oxycodone HCl [Oxaydo] 5 mg PO BID PRN 01/16/17 [History] Pravastatin Sodium [Pravachol] 40 mg PO HS #30 tablet 02/03/17 [Rx] Escitalopram [Lexapro] 10 mg PO DAILY 04/22/17 [History] Ferrous Sulfate 325 mg PO DAILY 04/22/17 [History] Furosemide [Lasix] 20 mg PO QMWF 04/22/17 [History] GuaiFENesin/Dextromethorphan [Robitussin/DM] 10 ml PO Q6HR PRN 04/22/17 [History ] Lactobacillus [Culturelle] 1 each PO BID 04/22/17 [History] Lidocaine Viscous Oral Soln 15 ml MM Q4H PRN 04/22/17 [History] Loratadine [Allergy Relief] 10 mg PO DAILY 04/22/17 [History] Metoprolol Succinate 12.5 mg PO DAILY 04/22/17 [History] Midodrine HCl 5 mg PO TID 04/22/17 [History] Nitroglycerin [Nitrostat] 0.4 mg SL AD PRN 04/22/17 [History] Pantoprazole Sodium [Protonix] 40 mg PO DAILY 04/22/17 [History] Prochlorperazine Maleate [Compazine] 10 mg PO Q6HR PRN 04/22/17 [History] Sennosides [Laxative] 17.2 mg PO BID 04/22/17 [History] Simethicone [Gas-X] 160 mg PO TID PRN 04/22/17 [History] Thiamine (B-1) [Vitamin B-1] 100 mg PO DAILY 04/22/17 [History] Tramadol HCl [Ultram] 50 mg PO QID PRN 04/22/17 [History] Zolpidem [Ambien] 5 mg PO HS 04/22/17 [History] Saliva Stimulant [Biotene Moisturizing Rinse] 100 spray MM 2-4XD #1 bottle 05/13 [Rx] Aspirin [Lo-Dose Aspirin EC] 81 mg PO DAILY 06/15/17 [History] Bisacodyl [Dulcolax] 5 mg PO Q48H 06/15/17 [History] Clindamycin Phosphate [Cleocin T] 1 appl TP DAILY PRN 06/15/17 [History] Ergocalciferol (VITAMIN D2) [Vitamin D] 1,200 unit PO DAILY 06/15/17 [History] Hydrocortisone 1% CREAM [Cortaid] 1 appl TP DAILY PRN 06/15/17 [History] Magic Mouthwash [Magic Mouthwash BLM] 10 ml PO QID PRN 06/15/17 [History] Multivitamin [Multivitamins] 1 each PO DAILY 06/15/17 [History] Propylene Glycol/Peg 400 [Systane 0.3-0.4% Eye Drops] 2 drop BOTH EYES BID 06/15 [History] Thiamine (B-1) [Vitamin B-1] 100 mg PO BID 06/15/17 [History] 3 Allergy/AdvReac Type Severity Reaction Status Date / Time baclofen Allergy Rash Verified 05/13/17 15:38 cetuximab [From Erbitux] Allergy Hives Verified 05/13/17 15:38 Diclofenac Allergy Itching Verified 05/13/17 15:38 ibuprofen AdvReac Nausea Verified 05/13/17 15:38 All Systems Review: A 10-system review of systems was performed and is negative for pertinent findings except as documented above in the HPI. - Constitutional Constitutional: weakness - Cardiovascular Cardiovascular: as per HPI - Gastrointestinal Gastrointestinal: abdominal pain, nausea Physical Examination Vital Signs, Last 4 Hours Temp Pulse Resp BP Pulse Ox 06/15/17 07:53 18 96 06/15/17 06:20 98.2 F 80 18 152/83 96 General: Conversant, No Apparent Distress HEENT: Mucus Membranes Moist Neck: Other (JVD noted) Cardiac: Reg Rate and Rhythm, Normal S1 and S2, No Murmur Lungs: Other (diminished breath sounds bilaterally) Neuro: Alert and responsive Abdomen: Soft, Non-Tender Extremities: Other (no significant RLE edema, L below the knee amputation) Results 06/15/17 03:45 06/15/17 03:45 Lab Results 06/15/17 06/15/17 06/15/17 03:45 03:45 03:45 WBC 5.6 Hgb 13.5 Hct 38.1 Plt Count 104 L Sodium 130 L Potassium 3.4 L Chloride 100 Carbon Dioxide 22 BUN 12 Creatinine 0.79 Glucose 98 Calcium 8.8 Magnesium 1.8 Troponin I 0.05 H* - Imaging and Cardiology Chest Xray: report reviewed Stress Test: report reviewed Echo: report reviewed - EKG Interpretation EKG results cardiology: other (telemetry reviewed; demonstrates 2.5 second pause at 2AM while in NSR - presumably while sleeping) Consult Discharge Plan - Plan [facility]errals: [facility]Primary Care Provider[facility] -
[2017-06-15] MEDS ORDERED: Simethicone 80 MG TAB.CHEW PO PRN (11:17)
[2017-06-15] MEDS ORDERED: Lidocaine Viscous Oral Soln 15 ML SOLUTION MM PRN (11:17)
[2017-06-15] MEDS ORDERED: Magic Mouthwash 10 ML UD Cup PO PRN (11:17)
[2017-06-15] MEDS ORDERED: Nitroglycerin 0.4 MG TAB.SUBL SL PRN (11:17)
[2017-06-15] MEDS ORDERED: traMADol 50 MG TABLET PO PRN (11:17)
[2017-06-15] MEDS ORDERED: *HR* OxyCODONE Immed Rel 5 MG TABLET PO PRN (11:17)
[2017-06-15] MEDS: Furosemide 40 MG/4 ML VIAL IVP SCH (11:24)
[2017-06-15] MEDS: Gabapentin 400 MG CAPSULE PO SCH ×3 (12:42→22:20)
[2017-06-15] MEDS: Metoprolol XL (24 HR) Succ 25 MG TAB.ER.24H PO SCH (12:42)
[2017-06-15] MEDS: Aspirin Enteric Coated 81 MG Tablet PO SCH (12:42)
[2017-06-15] MEDS: Saliva Stimulant 100ml BOTTLE MM SCH ×3 (13:07→22:27)
[2017-06-15 13:14] LABS: INR 1.1; Prothrombin Time 11.8 Seconds (9.4-12.1)
[2017-06-15 13:16] LABS: Activated Partial Thrombo Time 30.1 Seconds (26.0-36.0)
[2017-06-15 13:18] LABS: Amylase 22 Units/L (25-125); Lipase 160 Units/L (8-78)
[2017-06-15 13:19] LABS: Alanine Aminotransferase 25 Units/L (0-55); Albumin 3.1 g/dL (3.5-5.0); Albumin/Globulin Ratio 0.7 (1.1-2.2); Alkaline Phosphatase 95 Units/L (38-126); Aspartate Amino Transferase 47 Units/L (5-34); BUN/Creatinine Ratio 14 (6-26); Bilirubin,Total 0.9 mg/dL (0.2-1.2); Blood Urea Nitrogen 12 mg/dL (8-26); Calcium 9.1 mg/dL (8.6-10.8); Carbon Dioxide 21 mEq/L (19-29); Chloride 99 mEq/L (98-109); Globulin 4.4 g/dL (2.4-3.5); Glucose 120 mg/dL (70-99); Osmolality,Calculated 273 (280-300); Potassium 3.4 mEq/L (3.5-4.5); Sodium 131 mEq/L (136-145); Total Protein 7.5 g/dL (6.0-8.3); eGFR For African Americans > 60 (> 60); eGFR For Non-African Americans > 60 (> 60)
[2017-06-15 13:33] LABS: Bilirubin,Urine Negative (Negative); Blood,Urine Negative (Negative); Clarity,Urine Clear (Clear); Color,Urine Yellow (Yellow); Glucose,Urine (UA) Normal (Normal); Ketones,Urine Negative (Negative); Leukocyte Esterase,Urine Negative (Negative); Nitrite,Urine Negative (Negative); Protein,Urine Negative (Neg-Trace); Specific Gravity,Urine 1.011 (1.010-1.025); Urobilinogen,Urine Normal (Normal)
[2017-06-15 14:12] LABS: Hepatitis B Surface Antigen Reactive (Nonreactive)
[2017-06-15] MEDS: MetroNIDAZOLE 500 MG/100 ML 500 MG/100 ML BAG IVPB SCH ×2 (14:52→17:28)
[2017-06-15] MEDS: GLYCERIN OP SCH ×2 (17:23→22:28)
[2017-06-15] MEDS: HYPROMELLOSE OP SCH ×2 (17:23→22:28)
[2017-06-15] MEDS: PEG OP SCH ×2 (17:23→22:28)
[2017-06-15] MEDS: Lactobacillus 1 EACH CAP.SPRINK PO SCH (22:19)
[2017-06-15] MEDS: Thiamine (B-1) 100 MG TABLET PO SCH (22:19)
[2017-06-15] MEDS: Sennosides 8.6 MG TABLET PO SCH (22:20)
[2017-06-15] MEDS: Artificial Tears SOLN 15 ML BOTTLE BOTH EYES SCH (22:25)
[2017-06-15] MEDS: Latanoprost 2.5 ML BOTTLE RIGHT EYE SCH (22:26)
[2017-06-15] MEDS: (Ketotifen Fumarate [Ketotifen Fumarate] 1 DROP) OP SCH (22:28)
[2017-06-16] MEDS: MetroNIDAZOLE 500 MG/100 ML 500 MG/100 ML BAG IVPB SCH ×2 (00:59→10:07)
[2017-06-16 05:13] LABS: Eosinophils % 1.1 %; Red Cell Distribution Width 14.9 % (11.5-14.5)
[2017-06-16 05:15] LABS: Basophils % 0.7 %; Eosinophils # 0.1 K/mcL (0.0-0.6); Hematocrit 38.1 % (37.5-50.1); Hemoglobin 13.3 g/dL (12.9-16.9); Immature Granulocytes % 0.5 % (0-4); Immature Platelets 10.1 % (1.1-6.1); Lymphocytes # 1.1 K/mcL (0.6-4.6); Lymphocytes % 24.1 %; Mean Corpuscular HGB Conc 34.9 g/dL (31.6-35.5); Mean Corpuscular Hemoglobin 34.3 pg (28.0-33.3); Mean Corpuscular Volume 98.2 fL (83.0-100.0); Mean Platelet Volume 12.2 fL (9.4-12.4); Monocytes # 0.6 K/mcL (0.0-1.3); Monocytes % 13.9 %; Neutrophils # 2.6 K/mcL (1.6-8.9); Platelet Count 104 K/mcL (140-400); Red Blood Count 3.88 M/mcL (4.19-5.50); Segmented Neutrophils % 59.7 %
[2017-06-16] MEDS: *HR* Heparin 5,000 UNIT/ML VIAL SQ SCH ×2 (05:54→16:56)
[2017-06-16 06:02] LABS: Alanine Aminotransferase 25 Units/L (0-55); Albumin 2.8 g/dL (3.5-5.0); Albumin/Globulin Ratio 0.7 (1.1-2.2); Alkaline Phosphatase 84 Units/L (38-126); Aspartate Amino Transferase 41 Units/L (5-34); BUN/Creatinine Ratio 13 (6-26); Bilirubin,Total 0.6 mg/dL (0.2-1.2); Blood Urea Nitrogen 13 mg/dL (8-26); Calcium 8.9 mg/dL (8.6-10.8); Carbon Dioxide 21 mEq/L (19-29); Chloride 101 mEq/L (98-109); Globulin 3.9 g/dL (2.4-3.5); Glucose 96 mg/dL (70-99); Osmolality,Calculated 272 (280-300); Potassium 3.5 mEq/L (3.5-4.5); Sodium 131 mEq/L (136-145); Total Protein 6.7 g/dL (6.0-8.3); eGFR For African Americans > 60 (> 60); eGFR For Non-African Americans > 60 (> 60)
--- NOTE | 2017-06-16 08:00 | Internal Med Progress Note ---
<Rodrigo Burdick - Last Filed: 06/16/17 11:39> Date of Encounter: 06/16/17 Time of Encounter: 07:53 - Assessment and plan (1) Congestive heart failure Current Visit: Yes Status: Acute Assessment and plan: BNP 1304, JVD on exam and CXR with pulmonary edema on admission Echo reveals EF 60% IV diuresis at this time with careful monitoring of renal function and potassium Daily weight , strict I/O Fluid restriction Continue home meds Cardiology following Qualifiers: Congestive heart failure type: diastolic Congestive heart failure chronicity: acute on chronic Qualified Code(s): I50.33 - Acute on chronic diastolic (congestive) heart failure (2) Protein-calorie malnutrition, severe Current Visit: Yes Status: Chronic Assessment and plan: Nutrition consult Nutritonal supplement once able to tolerate (3) Generalized weakness Current Visit: No Status: Acute Assessment and plan: PT/ OT consulted (4) Atrial fibrillation with rapid ventricular response Current Visit: Yes Status: Resolved Assessment and plan: HR now converted to NSR. Weaned off Cardizem ggt, increased home Toprol dose to 25 daily Cardiology following (5) Elevated troponin Current Visit: Yes Status: Chronic Assessment and plan: Chronic Adynamic serial troponin. Cardiology following (6) HTN (hypertension) Current Visit: Yes Status: Chronic Assessment and plan: Increased Metoprolol dose Hold home Midodrine Qualifiers: Hypertension type: essential hypertension Qualified Code(s): I10 - Essential (primary) hypertension (7) CAD (coronary artery disease) Current Visit: Yes Status: Chronic Assessment and plan: Continue ASA Cardiology following Qualifiers: Coronary Disease-Associated Artery/Lesion type: [place] artery [place] vs. transplanted heart: [place] heart Associated angina: without angina Qualified Code(s): I25.10 - Atherosclerotic heart disease of [place] coronary artery without angina pectoris (8) Esophageal cancer Current Visit: No Status: Chronic Assessment and plan: Chronic CT abd/plv reveals lobular soft tissue focus along the posterior aspect of the stomach measuring approximately 1.1 x 2.4 cm. Recommend further evaluation to exclude the possibility of mass/ metastasis. Patient currently NPO Consider EGD with biopsy Continue outpatient Hem/onc follow up Qualifiers: Malignant neoplasm of esophagus location: unspecified location Qualified Code(s): C15.9 - Malignant neoplasm of esophagus, unspecified (9) Hepatitis Current Visit: Yes Status: Acute Assessment and plan: Elevated AST 47 --> 41 Lipase 160 Hep B surface Ag positive, Acute hepatitis panel pending (10) Cirrhosis Current Visit: Yes Status: Acute Assessment and plan: Abd U/S reveals liver has a nodular contour with coarse heterogeneous echogenicity. Findings are consistent with cirrhosis CT abd/plv reveals Cirrhotic appearance of the liver with trace simple free fluid within the pelvis which is nonspecific. Qualifiers: Hepatic cirrhosis type: unspecified hepatic cirrhosis Ascites presence: without ascites Qualified Code(s): K74.60 - Unspecified cirrhosis of liver (11) Cholelithiasis Current Visit: Yes Status: Chronic Assessment and plan: Abd ultrasound reveals Cholelithiasis. Borderline thickening of the gallbladder wall Qualifiers: Cholelithiasis location: gallbladder Cholecystitis presence: without cholecystitis Biliary obstruction: without biliary obstruction Qualified Code(s): K80.20 - Calculus of gallbladder without cholecystitis without obstruction (12) Diverticulosis of colon Current Visit: Yes Status: Acute Assessment and plan: CT abd/plv reveals colonic diverticulosis without evidence for diverticulitis. No leukocytosis, decreased abd pain today Discontinue Cipro/ Flagyl (13) Hyponatremia Current Visit: Yes Status: Chronic Assessment and plan: Labs demonstrate reduced serum osmolality. Continue to monitor (14) Thrombocytopenia Current Visit: Yes Status: Chronic Assessment and plan: Chronic, stable (15) DVT prophylaxis Current Visit: No Status: Acute Assessment and plan: Heparin subq TID - Subjective Interval history: Patient seen and examined. HR 75 off Cardizem ggt. Patient reports fatigue, decreased nausea, and abdominal pain today. Ct abd/plv revealed lobular soft tissue focus along the posterior aspect of the stomach measuring approximately 1.1 x 2.4 cm. He denies fever, chills, CP, SOB, vomiting, diarrhea, constipation , bleeding or recent weight loss. - Constitutional Vitals: Temp Pulse Resp BP Pulse Ox 97.9 F 69 19 122/68 97 06/15/17 18:52 06/16/17 04:44 06/16/17 04:44 06/16/17 04:44 06/16/17 04:44 General appearance: Present: cachectic, cooperative, A&O X 3, pleasant, no acute distress, answers questions appropriately - Head Head exam: Present: atraumatic, normocephalic Additional comments: temporal wasting - Eye Eye exam: Present: EOMI, conjuntiva pink, sclera anicteric - ENT ENT exam: Present: mucous membranes dry, normal oropharynx - Neck Neck exam general surgery: Present: tenderness (chronicposterior neck TTP) Additional comments: JVD - Respiratory Respiratory exam: Present: CTAB. Absent: accessory muscle use, respiratory distress, wheezes - Cardiovascular Cardiovascular exam: Present: RRR, +S1, +S2 - GI/Abdominal GI/Abdominal exam: Present: normal bowel sounds, soft, tenderness (LUQ). Absent : distended, guarding, mass - Additional comments: no winkler - Extremities Exam Extremities exam: Present: warm. Absent: pedal edema Additional comments: No pedal edema, LUE below elbow amputation, loss of subcuticular fat, loss of muscle mass - Back Exam Back exam: Present: normal inspection. Absent: paraspinal tenderness, tenderness - Neurological Exam Neurological exam: Present: alert, oriented X3, no focal deficits. Absent: speech deficit - Psychiatric Psychiatric exam: Present: normal affect, normal mood - Skin Skin exam: Present: dry, normal color, warm Internal Medicine: Result - Labs CBC & Chem 7: 06/16/17 04:59 06/16/17 04:59 Labs: Short CBC 06/16/17 Range/Units 04:59 WBC 4.4 (4.3-11.1) K/mcL Hgb 13.3 (12.9-16.9) g/dL Hct 38.1 (37.5-50.1) % Plt Count 104 L (140-400) K/mcL Neutrophils # 2.6 (1.6-8.9) K/mcL BMP 06/15/17 06/16/17 12:50 04:59 Sodium 131 L 131 L Potassium 3.4 L 3.5 Chloride 99 101 Carbon Dioxide 21 21 BUN 12 13 Creatinine 0.86 0.99 Glucose 120 H 96 Calcium 9.1 8.9 Cardiac Enzymes 06/15/17 Range/Units 12:50 Troponin I 0.04 H* (0-0.03) ng/mL Liver Function 06/15/17 06/16/17 Range/Units 12:50 04:59 Total Bilirubin 0.9 0.6 (0.2-1.2) mg/dL AST 47 H 41 H (5-34) Units/L ALT 25 25 (0-55) Units/L Alkaline Phosphatase 95 84 (38-126) Units/L Albumin 3.1 L 2.8 L (3.5-5.0) g/dL Urine 06/15/17 Range/Units 13:05 Urine Color Yellow (Yellow) Urine Clarity Clear (Clear) Urine pH 7.0 (5.0-8.0) pH Units Ur Specific [place] 1.011 (1.010-1.025) Urine Protein Negative (Neg-Trace) mg/dL Urine Glucose (UA) Normal (Normal) mg/dL - ABG Interpretation ABG results: PT/INR, D-dimer PT 11.8 Seconds (9.4-12.1) 06/15/17 12:50 - Pulse Oximetry Interpretation Digit-Finger Pulse Oximetry Readin (on 2L via NC) - Impressions Impressions Echocardiogram 06/15/17 02:04 Impressions: LVEF 60%. Not all LV wall segments were well visualized. Indeterminate diastolic function. Normal right ventricular structure and function. No significant valvular dysfunction. No pulmonary hypertension. Left Ventricular Wall Motion: Rest Echo Findings The mid inferior lateral and basal inferior lateral hilario were not visualized. All other wall segments showed normal motion. Findings: Study Quality * Technically sub-optimal due to COPD. ECG Findings * Normal sinus rhythm. Left Ventricle * Indeterminate diastolic function. Valsalva was not performed. * Normal LV size and wall thickness. * LVEF 60%. Right Ventricle * Normal right ventricular structure and function. Left Atrium * Moderately dilated left atrium. Right Atrium * Normal right atrial size. Aortic Valve * No aortic regurgitation. * Aortic valve not well visualized. * No aortic stenosis. Mitral Valve * No mitral regurgitation. * Normal mitral valve structure. * No mitral stenosis. * Mild mitral annular calcification Tricuspid Valve * No tricuspid regurgitation. * Normal tricuspid valve structure. * Estimated RA pressure is 3 mmHg. * Estimated RVSP is 11 mmHg. * No pulmonary hypertension. Pulmonic Valve * Pulmonic valve is not well visualized. * No pulmonic stenosis. * No pulmonic regurgitation. Pulmonary Artery * Pulmonary artery not well visualized. Aorta * Normally sized aortic root. Pericardium * There is no pericardial effusion present. Interatrial Septum * No evidence of PFO by color Doppler. IVC * Normal IVC dimensions and inspiratory collapse. Gallbladder Ultrasound 06/15/17 11:50 IMPRESSION: Cholelithiasis. Borderline thickening of the gallbladder wall. The liver has a nodular contour with coarse heterogeneous echogenicity. Findings are consistent with cirrhosis. D/ / Alexandro Ortega MD / Alexandro Ortega MD Interpreting Provider: Alexandro Ortega MD Abdomen/Pelvis CT 06/15/17 14:45 IMPRESSION: 1. No acute intra-abdominal process identified. 2. Lobular soft tissue focus along the posterior aspect of the stomach measuring approximately 1.1 x 2.4 cm. Recommend further evaluation to exclude the possibility of mass. 3. Cirrhotic appearance of the liver as noted on prior exams. 4. Cholelithiasis. 5. Trace simple free fluid within the pelvis which is nonspecific. 6. Similar appearance of focal left basilar opacity as described on prior exams. D/ / Jaylan Mandujano MD / Jaylan Mandujano MD Interpreting Provider: Jaylan Mandujano MD Consult Discharge Plan - Plan Referrals: [facility] [Primary Care Provider[facility] - <Jc Guerrier H - Last Filed: 06/16/17 11:42> Date of Encounter: 06/16/17 - Constitutional Vitals: Temp Pulse Resp BP Pulse Ox 98.0 F 66 16 123/70 95 06/16/17 06:55 06/16/17 11:18 06/16/17 08:01 06/16/17 11:18 06/16/17 10:21 Internal Medicine: Result - Labs CBC & Chem 7: 06/16/17 04:59 06/16/17 04:59 Labs: Short CBC 06/16/17 Range/Units 04:59 WBC 4.4 (4.3-11.1) K/mcL Hgb 13.3 (12.9-16.9) g/dL Hct 38.1 (37.5-50.1) % Plt Count 104 L (140-400) K/mcL Neutrophils # 2.6 (1.6-8.9) K/mcL BMP 06/15/17 06/16/17 12:50 04:59 Sodium 131 L 131 L Potassium 3.4 L 3.5 Chloride 99 101 Carbon Dioxide 21 21 BUN 12 13 Creatinine 0.86 0.99 Glucose 120 H 96 Calcium 9.1 8.9 Cardiac Enzymes 06/15/17 Range/Units 12:50 Troponin I 0.04 H* (0-0.03) ng/mL Liver Function 06/15/17 06/16/17 Range/Units 12:50 04:59 Total Bilirubin 0.9 0.6 (0.2-1.2) mg/dL AST 47 H 41 H (5-34) Units/L ALT 25 25 (0-55) Units/L Alkaline Phosphatase 95 84 (38-126) Units/L Albumin 3.1 L 2.8 L (3.5-5.0) g/dL Urine 06/15/17 Range/Units 13:05 Urine Color Yellow (Yellow) Urine Clarity Clear (Clear) Urine pH 7.0 (5.0-8.0) pH Units Ur Specific [place] 1.011 (1.010-1.025) Urine Protein Negative (Neg-Trace) mg/dL Urine Glucose (UA) Normal (Normal) mg/dL - ABG Interpretation ABG results: PT/INR, D-dimer PT 11.8 Seconds (9.4-12.1) 06/15/17 12:50 - Impressions Impressions Echocardiogram 06/15/17 02:04 Impressions: LVEF 60%. Not all LV wall segments were well visualized. Indeterminate diastolic function. Normal right ventricular structure and function. No significant valvular dysfunction. No pulmonary hypertension. Left Ventricular Wall Motion: Rest Echo Findings The mid inferior lateral and basal inferior lateral hilario were not visualized. All other wall segments showed normal motion. Findings: Study Quality * Technically sub-optimal due to COPD. ECG Findings * Normal sinus rhythm. Left Ventricle * Indeterminate diastolic function. Valsalva was not performed. * Normal LV size and wall thickness. * LVEF 60%. Right Ventricle * Normal right ventricular structure and function. Left Atrium * Moderately dilated left atrium. Right Atrium * Normal right atrial size. Aortic Valve * No aortic regurgitation. * Aortic valve not well visualized. * No aortic stenosis. Mitral Valve * No mitral regurgitation. * Normal mitral valve structure. * No mitral stenosis. * Mild mitral annular calcification Tricuspid Valve * No tricuspid regurgitation. * Normal tricuspid valve structure. * Estimated RA pressure is 3 mmHg. * Estimated RVSP is 11 mmHg. * No pulmonary hypertension. Pulmonic Valve * Pulmonic valve is not well visualized. * No pulmonic stenosis. * No pulmonic regurgitation. Pulmonary Artery * Pulmonary artery not well visualized. Aorta * Normally sized aortic root. Pericardium * There is no pericardial effusion present. Interatrial Septum * No evidence of PFO by color Doppler. IVC * Normal IVC dimensions and inspiratory collapse. Gallbladder Ultrasound 06/15/17 11:50 IMPRESSION: Cholelithiasis. Borderline thickening of the gallbladder wall. The liver has a nodular contour with coarse heterogeneous echogenicity. Findings are consistent with cirrhosis. D/ / Alexandro Ortega MD / Alexandro Ortega MD Interpreting Provider: Alexandro Ortega MD Abdomen/Pelvis CT 06/15/17 14:45 IMPRESSION: 1. No acute intra-abdominal process identified. 2. Lobular soft tissue focus along the posterior aspect of the stomach measuring approximately 1.1 x 2.4 cm. Recommend further evaluation to exclude the possibility of mass. 3. Cirrhotic appearance of the liver as noted on prior exams. 4. Cholelithiasis. 5. Trace simple free fluid within the pelvis which is nonspecific. 6. Similar appearance of focal left basilar opacity as described on prior exams. D/ / Jaylan Mandujano MD / Jaylan Mandujano MD Interpreting Provider: Jaylan Mandujano MD - Attending Attestation CT scan shows possible gastric mass Will need to be scoped either today or tomorrow. Consider GI consult for the morning if not able to be scoped today. May start liquids in the afternoon if no procedure is scheduled for today I examined this patient and my medical decision-making was reviewed with the Resident Physician. I agree with the documented findings, disposition and treatment plan as described except to the extent set forth below.
[2017-06-16] MEDS: Budesonide/Formoterol 160/4.5 MDI IH SCH ×2 (08:01→20:38)
[2017-06-16] MEDS ORDERED: NON-FORMULARY MEDICATION 1 EACH EACH (Multivitamin [Multivitamins] 1 EACH) PO SCH (09:00)
[2017-06-16] MEDS: Aspirin Enteric Coated 81 MG Tablet PO SCH (10:02)
[2017-06-16] MEDS: Multivit/Ca/Min/Fe/FA 1 TAB TABLET PO SCH (10:02)
[2017-06-16] MEDS: Lactobacillus 1 EACH CAP.SPRINK PO SCH ×2 (10:03→22:08)
[2017-06-16] MEDS: Cholecalciferol (D-3) 1,000 UNIT TABLET PO SCH (10:03)
[2017-06-16] MEDS: Sennosides 8.6 MG TABLET PO SCH ×2 (10:03→22:08)
[2017-06-16] MEDS: Loratadine 10 MG TABLET PO SCH (10:04)
[2017-06-16] MEDS: Thiamine (B-1) 100 MG TABLET PO SCH ×2 (10:04→22:09)
[2017-06-16] MEDS: Gabapentin 400 MG CAPSULE PO SCH ×3 (10:04→22:08)
[2017-06-16] MEDS: Metoprolol XL (24 HR) Succ 25 MG TAB.ER.24H PO SCH (10:05)
[2017-06-16] MEDS: GLYCERIN OP SCH ×3 (10:05→22:17)
[2017-06-16] MEDS: PEG OP SCH ×3 (10:05→22:17)
[2017-06-16] MEDS: HYPROMELLOSE OP SCH ×3 (10:05→22:17)
[2017-06-16] MEDS: (Ketotifen Fumarate [Ketotifen Fumarate] 1 DROP) OP SCH ×2 (10:06→22:17)
[2017-06-16] MEDS: Saliva Stimulant 100ml BOTTLE MM SCH ×4 (10:17→22:15)
[2017-06-16] MEDS: Artificial Tears SOLN 15 ML BOTTLE BOTH EYES SCH ×2 (10:18→22:14)
[2017-06-16] MEDS: Furosemide 40 MG/4 ML VIAL IVP SCH (11:17)
--- NOTE | 2017-06-16 17:00 | Internal Medicine Consult Note ---
Date of Encounter: 06/25/17 Time of Encounter: 16:57 - Assessment and Plan (1) Abnormal CT scan Status: Acute Assessment and plan: There appears to be a definite mass, in the posterior wall of the stomach, this could be a large adenoma or even a carcinoma. Food debris artifact is much less likely. Metastatic disease from the head and neck carcinoma would also be less likely. I have discussed the need for upper endoscopy to delineate the etiology of the stomach lesion. He has signed consent today. Risks to include bleeding infection and perforation. There really are no alternatives at this time for tissue diagnosis. (2) COPD (chronic obstructive pulmonary disease) Status: Chronic Qualifiers: COPD type: unspecified COPD Qualified Code(s): J44.9 - Chronic obstructive pulmonary disease, unspecified (3) Cirrhosis Status: Chronic Assessment and plan: Either due to alcoholism, or chronic hepatitis B, he admits treatment possibly years and years ago via the ID, Qualifiers: Hepatic cirrhosis type: unspecified hepatic cirrhosis Ascites presence: without ascites Qualified Code(s): K74.60 - Unspecified cirrhosis of liver (4) Thrombocytopenia Status: Chronic Assessment and plan: Secondary to cirrhosis (5) Cholelithiasis Status: Chronic Assessment and plan: This appears to be asymptomatic at this time. 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 Last PET scan showed possible uptake still within the cervical chain. (7) Atrial fibrillation Status: Chronic Assessment and plan: It is not clear why, [facility] with [facility], other than the possible cirrhosis. I do wonder if there were issues with compliance Qualifiers: Atrial fibrillation type: paroxysmal Qualified Code(s): I48.0 - Paroxysmal atrial fibrillation (8) CAD (coronary artery disease) Status: Chronic Qualifiers: Coronary Disease-Associated Artery/Lesion type: sam[place] artery [place] vs. transplanted heart: samish heart Associated angina: without angina Qualified Code(s): I25.10 - Atherosclerotic heart disease of samish coronary artery without angina pectoris (9) Chronic hepatitis B Status: Chronic Internal Medicine - CN: HPI - Data of Consult Patient: new to practice Consult date: 06/16/17 Requesting Physician: Jc Guerrier - Consult Narrative Reason for consult: Possible mass, versus large polyp in the stomach/abdominal pain History of present illness: Mr. Post is a 77 year old male admitted to the [facility] hospitalist service. He presented 24 hours ago with what appears to be acute diastolic congestive heart failure now resolved after diuresis. He also had atrial fibrillation with rapid ventricular response now resolved. He complained of some abdominal discomfort, subsequent CAT scan was done which shows what may be a polypoid mass in the lower portion of the stomach. He admits his pain is been infra umbilical, somewhat dull, somewhat constant, without alleviating or exacerbating factors. He does have what appears to be some trouble voiding with frequent small amounts of nocturia, and will have upcoming evaluation the future via the ID, with Urology. He's denied nausea or vomiting, he has had some weight loss over the past 3 or 4 months which is stabilized, after completing radiation therapy to the head and neck, this gentleman was diagnosed 9 months ago with tonsillar head and neck carcinoma. He does have xerostomia from this with poor appetite. No reflux , it does appear maybe 20+ years ago a previous ulcer bleeding in the stomach, but cannot verify that. He has never had previous colonoscopy. He does admit having 1 loose bowel movement today, somewhat dark, his bowels tend stay somewhat loose and infrequent. Past Med Surg Social Fam HX - Past Medical History Medical history: arthritis, atrial fibrillation, cancer, CHF, COPD, coronary artery disease, CVA, glaucoma, hepatitis, hypertension, myocardial infarction, TIA Psychiatric history: no psych history - Past Surgical History Surgical History: carotid endarterectomy, hip replacement, knee replacement - Social History Smoking Status: Current every day smoker Smokeless Tobacco Status: No Alcohol use: none Drug use: none Additional social history: Previous heavy alcohol abuse up until one year ago - Family History Father Living Status: Hx Family Cardiac Disorders: Yes Mother Living Status: Hx Family Cardiac Disorders: Yes - Constitutional Constitutional: anorexia, no fever(s) - Cardiovascular Cardiovascular ROS IM: no chest pain, no diaphoresis, no dyspnea, no edema - Respiratory Respiratory: no cough, no dyspnea on exertion, no pain on inspiration - Gastrointestinal Gastrointestinal: abdominal pain, melena, no coffee ground emesis, no constipation, no cramping, no early satiety, no heartburn, no hematochezia, no nausea, no vomiting - Musculoskeletal Musculoskeletal ROS IM: arthralgias, back pain, no neck pain Additional comments: 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 - Neurological Neurological ROS: abnormal gait, no confusion, no memory loss Additional comments: WITH a cane Internal Medicine - CN: Meds Albuterol Sulfate [Albuterol Inhaler] 2 puff IH QID PRN 09/18/16 [History] Bisacodyl [Laxative] 5 mg PO Q48H 09/18/16 [History] Budesonide/Formoterol 160/4.5 [Symbicort 160/4.5] 2 puff IH BIDR #1 hfa.aer.ad 09/18/16 [Rx] Gabapentin [Neurontin] 800 mg PO TID 09/18/16 [History] Hydrophilic Cream [Basle] 1 appl TP DAILY 09/18/16 [History] Ketotifen Fumarate 1 drop OP BID 09/18/16 [History] Multivitamin [Multivitamins] 1 tab PO DAILY 09/18/16 [History] Peg 400/Hypromellose/Glycerin [Visine Tired Eye Relief Drop] 1 drop BOTH EYES TID 09/18/16 [History] Tamsulosin HCl [Flomax] 0.4 mg PO HS #30 cap.er.24h 12/25/16 [Rx] Carbamide Peroxide [Ear Drops] 4 drop BOTH EYES DAILY 01/16/17 [History] Latanoprost [Xalatan] 1 drop OP HS 01/16/17 [History] Oxycodone HCl [Oxaydo] 5 mg PO BID PRN 01/16/17 [History] Pravastatin Sodium [Pravachol] 40 mg PO HS #30 tablet 02/03/17 [Rx] Escitalopram [Lexapro] 10 mg PO DAILY 04/22/17 [History] Ferrous Sulfate 325 mg PO Q48H 04/22/17 [History] Furosemide [Lasix] 20 mg PO QMWF 04/22/17 [History] GuaiFENesin/Dextromethorphan [Robitussin/Dm] 10 ml PO Q6HR PRN 04/22/17 [History ] Lactobacillus [Culturelle] 1 cap PO BID 04/22/17 [History] Lidocaine Viscous Oral Soln 5 ml MM Q2H PRN 04/22/17 [History] Loratadine [Allergy Relief] 10 mg PO DAILY 04/22/17 [History] Metoprolol Succinate 12.5 mg PO DAILY 04/22/17 [History] Midodrine HCl 5 mg PO TID 04/22/17 [History] Nitroglycerin [Nitrostat] 0.4 mg SL AD PRN 04/22/17 [History] Pantoprazole Sodium [Protonix] 40 mg PO DAILY 04/22/17 [History] Prochlorperazine Maleate [Compazine] 10 mg PO Q6HR PRN 04/22/17 [History] Sennosides [Laxative] 17.2 mg PO BID 04/22/17 [History] Simethicone [Gas-X] 160 mg PO TID PRN 04/22/17 [History] Thiamine (B-1) [Vitamin B-1] 100 mg PO DAILY 04/22/17 [History] Tramadol HCl [Ultram] 50 mg PO QID PRN 04/22/17 [History] Zolpidem [Ambien] 5 mg PO HS 04/22/17 [History] Aspirin [Lo-Dose Aspirin EC] 81 mg PO DAILY 06/15/17 [History] Clindamycin Phosphate [Cleocin T] 1 appl TP DAILY PRN 06/15/17 [History] Ergocalciferol (VITAMIN D2) [Vitamin D] 1,200 unit PO DAILY 06/15/17 [History] Hydrocortisone 1% CREAM [Cortaid] 1 appl TP DAILY PRN 06/15/17 [History] Magic Mouthwash [Magic Mouthwash BLM] 10 ml PO QID PRN 06/15/17 [History] Propylene Glycol/Peg 400 [Systane 0.3-0.4% Eye Drops] 2 drop BOTH EYES BID 06/15 [History] Saliva Stimulant [Biotene Moisturizing Rinse] 1 - 2 spray MM AD PRN 06/15/17 [ History] Thiamine (B-1) [Vitamin B-1] 100 mg PO BID 06/15/17 [History] 3 Allergy/AdvReac Type Severity Reaction Status Date / Time baclofen Allergy Rash Verified 05/13/17 15:38 cetuximab [From Erbitux] Allergy Hives Verified 05/13/17 15:38 Diclofenac Allergy Itching Verified 05/13/17 15:38 ibuprofen AdvReac Nausea Verified 05/13/17 15:38 Internal Medicine - CN: Exam - Constitutional Vitals: Temp Pulse Resp BP Pulse Ox 98.0 F 75 15 135/75 94 06/16/17 12:10 06/16/17 12:10 06/16/17 12:10 06/16/17 12:10 06/16/17 12:10 General appearance IM: Present: cachectic, cooperative, A&O X 3, pleasant, no acute distress, answers questions appropriately - Eye Eye exam: Present: EOMI, conjuntiva pink. Absent: scleral icterus - ENT ENT exam: Present: mucous membranes dry, normal exam - Neck Neck exam general surgery: Present: full ROM, supple, trachea midline. Absent: lymphadenopathy - Respiratory Respiratory exam: Present: CTAB - Cardiovascular Cardiovascular exam IM: Present: RRR, +S1, +S2. Absent: JVD, tachycardia - GI/Abdominal GI/Abdominal exam IM: Present: normal bowel sounds, soft. Absent: mass, rebound , rigid, splenomegaly - Rectal Rectal exam: Present: deferred Internal Medicine - CN: Reslt - Labs CBC & Chem 7: 06/18/17 07:58 06/18/17 07:58 Labs: Short CBC 06/16/17 Range/Units 04:59 WBC 4.4 (4.3-11.1) K/mcL Hgb 13.3 (12.9-16.9) g/dL Hct 38.1 (37.5-50.1) % Plt Count 104 L (140-400) K/mcL Neutrophils # 2.6 (1.6-8.9) K/mcL BMP 06/16/17 04:59 Sodium 131 L Potassium 3.5 Chloride 101 Carbon Dioxide 21 BUN 13 Creatinine 0.99 Glucose 96 Calcium 8.9 Liver Function 06/16/17 Range/Units 04:59 Total Bilirubin 0.6 (0.2-1.2) mg/dL AST 41 H (5-34) Units/L ALT 25 (0-55) Units/L Alkaline Phosphatase 84 (38-126) Units/L Albumin 2.8 L (3.5-5.0) g/dL - ABG Interpretation ABG results: PT/INR, D-dimer PT 11.8 Seconds (9.4-12.1) 06/15/17 12:50 - Impressions Impressions Gallbladder Ultrasound 06/15/17 11:50 IMPRESSION: Cholelithiasis. Borderline thickening of the gallbladder wall. The liver has a nodular contour with coarse heterogeneous echogenicity. Findings are consistent with cirrhosis. D/ / Alexandro Ortega MD / Alexandro Ortega MD Interpreting Provider: Alexandro Ortega MD Consult Discharge Plan - Plan Instructions: Atrial Fibrillation (DC), Diverticulitis (DC) [facility]errals: [facility] [Primary Care Provider] -
[2017-06-16] MEDS: Latanoprost 2.5 ML BOTTLE RIGHT EYE SCH (22:13)
[2017-06-17 03:58] LABS: Hematocrit 37.5 % (37.5-50.1); Immature Platelets 11.6 % (1.1-6.1); Mean Corpuscular HGB Conc 34.7 g/dL (31.6-35.5); Mean Corpuscular Hemoglobin 33.9 pg (28.0-33.3); Mean Corpuscular Volume 97.7 fL (83.0-100.0); Mean Platelet Volume 11.9 fL (9.4-12.4); Red Blood Count 3.84 M/mcL (4.19-5.50); Red Cell Distribution Width 14.6 % (11.5-14.5)
[2017-06-17 04:11] LABS: Alanine Aminotransferase 37 Units/L (0-55); Albumin 2.6 g/dL (3.5-5.0); Albumin/Globulin Ratio 0.7 (1.1-2.2); Alkaline Phosphatase 83 Units/L (38-126); Aspartate Amino Transferase 62 Units/L (5-34); BUN/Creatinine Ratio 19 (6-26); Bilirubin,Total 0.4 mg/dL (0.2-1.2); Blood Urea Nitrogen 17 mg/dL (8-26); Calcium 8.4 mg/dL (8.6-10.8); Carbon Dioxide 26 mEq/L (19-29); Chloride 101 mEq/L (98-109); Globulin 3.9 g/dL (2.4-3.5); Glucose 109 mg/dL (70-99); Osmolality,Calculated 278 (280-300); Potassium 3.6 mEq/L (3.5-4.5); Sodium 133 mEq/L (136-145); Total Protein 6.5 g/dL (6.0-8.3); eGFR For African Americans > 60 (> 60); eGFR For Non-African Americans > 60 (> 60)
[2017-06-17] MEDS: *HR* Heparin 5,000 UNIT/ML VIAL SQ SCH ×2 (05:12→17:05)
[2017-06-17] MEDS: Metoprolol XL (24 HR) Succ 25 MG TAB.ER.24H PO SCH (09:13)
[2017-06-17] MEDS: Gabapentin 400 MG CAPSULE PO SCH ×3 (09:13→20:56)
[2017-06-17] MEDS: Furosemide 40 MG/4 ML VIAL IVP SCH (09:13)
[2017-06-17] MEDS: Loratadine 10 MG TABLET PO SCH (09:13)
[2017-06-17] MEDS: Aspirin Enteric Coated 81 MG Tablet PO SCH (09:13)
[2017-06-17] MEDS: Saliva Stimulant 100ml BOTTLE MM SCH ×4 (09:13→21:03)
[2017-06-17] MEDS: Lactobacillus 1 EACH CAP.SPRINK PO SCH ×2 (09:13→20:57)
[2017-06-17] MEDS: Thiamine (B-1) 100 MG TABLET PO SCH ×2 (09:14→21:04)
[2017-06-17] MEDS: Multivit/Ca/Min/Fe/FA 1 TAB TABLET PO SCH (09:14)
[2017-06-17] MEDS: GLYCERIN OP SCH (09:14)
[2017-06-17] MEDS: Artificial Tears SOLN 15 ML BOTTLE BOTH EYES SCH ×2 (09:14→20:58)
[2017-06-17] MEDS: (Ketotifen Fumarate [Ketotifen Fumarate] 1 DROP) OP SCH (09:14)
[2017-06-17] MEDS: HYPROMELLOSE OP SCH (09:14)
[2017-06-17] MEDS: Cholecalciferol (D-3) 1,000 UNIT TABLET PO SCH (09:14)
[2017-06-17] MEDS: PEG OP SCH (09:14)
[2017-06-17] MEDS: Sennosides 8.6 MG TABLET PO SCH ×2 (09:14→20:54)
[2017-06-17] MEDS: Budesonide/Formoterol 160/4.5 MDI IH SCH ×2 (10:34→20:24)
[2017-06-17] MEDS ORDERED: *HR* Midazolam HCl 5 MG/5 ML VIAL IVP ONE ×2 (10:38→11:05)
[2017-06-17] MEDS ORDERED: *HR* FentaNYL (PF) 100 MCG/2 ML VIAL ONE (10:38)
[2017-06-17 10:40] LABS: Hepatitis A Antibody IgM Nonreactive (Nonreactive); Hepatitis B Core IgM Nonreactive (Nonreactive); Hepatitis C Virus Antibody Nonreactive (Nonreactive)
[2017-06-17] MEDS ORDERED: 0.9 % Sodium Chloride 500 ML IVC SCH (10:40)
[2017-06-17] MEDS ORDERED: Simethicone 40 MG/0.6 ML MLS IR ONE (11:05)
[2017-06-17] MEDS ORDERED: *HR* FentaNYL (PF) 100 MCG/2 ML VIAL IVP ONE (11:05)
[2017-06-17] MEDS ORDERED: Tetracaine/Benzocaine/Butamben 200MG/SPRAY (100SPY/BOT) MM ONE (11:05)
--- NOTE | 2017-06-17 11:06 | Pre-Sedation Evaluation ---
Pre-sedation evaluation - Pre-sedation checklist Date of procedure: 06/17/17 Procedure: EGD Recent Vitals: Last Vital Signs Temp 97.6 F 06/17/17 10:37 Pulse 106 06/17/17 10:37 Resp 16 06/17/17 10:37 BP 94/68 06/17/17 10:37 Pulse Ox 94 06/17/17 10:37 H&P (including ROS) documented in medical record: Yes Previous reaction to sedatives/anesthetics: No Dietary Status: No solid food in preceding 4 hrs and no liquid in preceding 2 hrs Airway Assessment: Patient can open mouth completely, TMJ function normal Dentition: dentures removed ASA Classification *see protocol: CLASS III-Severe systemic disease
--- NOTE | 2017-06-17 11:36 | Event Note ---
Date of Encounter: 06/17/17 Time of Encounter: 11:35 EGD Findings: 1. Irregular, mildly nodular GE junction; biopsied. Not likely malignant. 2. No abnormality in the stomach. will advance diet.. I will follow up the biopsies as outpt.
--- NOTE | 2017-06-17 13:43 | Internal Med Progress Note ---
<Kenroy Reyes - Last Filed: 06/17/17 13:38> Date of Encounter: 06/17/17 Time of Encounter: 11:30 - Assessment and plan (1) Congestive heart failure Current Visit: Yes Status: Acute Assessment and plan: BNP 1304, JVD on exam and CXR with pulmonary edema on admission Echo reveals EF 60% IV diuresis at this time with careful monitoring of renal function and potassium Daily weight , strict I/O Fluid restriction Continue home meds Cardiology following Qualifiers: Congestive heart failure type: diastolic Congestive heart failure chronicity: acute on chronic Qualified Code(s): I50.33 - Acute on chronic diastolic (congestive) heart failure (2) Protein-calorie malnutrition, severe Current Visit: Yes Status: Chronic (3) DVT prophylaxis Current Visit: No Status: Acute (4) Atrial fibrillation with rapid ventricular response Current Visit: Yes Status: Resolved Assessment and plan: HR now converted to NSR. Weaned off Cardizem ggt, increased home Toprol dose to 25 daily Cardiology following (5) Chronic hepatitis B Current Visit: Yes Status: Chronic Assessment and plan: Hx of Hep B, no current flair (6) Right tonsillar squamous cell carcinoma Current Visit: No Status: Chronic Assessment and plan: Current medical problem. Currently managed by Hem/Oncology (7) HTN (hypertension) Current Visit: Yes Status: Chronic Qualifiers: Hypertension type: essential hypertension Qualified Code(s): I10 - Essential (primary) hypertension (8) CAD (coronary artery disease) Current Visit: Yes Status: Chronic Qualifiers: Coronary Disease-Associated Artery/Lesion type: [place] artery [place] vs. transplanted heart: sw[place] heart Associated angina: without angina Qualified Code(s): I25.10 - Atherosclerotic heart disease of [place] coronary artery without angina pectoris (9) Head and neck cancer Current Visit: Yes Status: Chronic - Subjective Interval history: Mr. Post has been seen and evaluated at patient bedside this morning after returning from EGD. He says he is doing well but is very lethargic after the procedure. He denies any other complaints this morning. - Constitutional Vitals: Temp Pulse Resp BP Pulse Ox 97.6 F 120 14 89/49 98 06/17/17 10:37 06/17/17 11:19 06/17/17 11:19 06/17/17 11:19 06/17/17 11:19 General appearance: Present: cachectic, cooperative, A&O X 3, pleasant, no acute distress, underweight, answers questions appropriately - Head Head exam: Present: atraumatic, normocephalic - Eye Eye exam: Present: PERRL, conjuntiva pink, sclera anicteric Pupils: Present: PERRL - Neck Neck exam general surgery: Present: supple, trachea midline. Absent: lymphadenopathy - Respiratory Respiratory exam: Present: CTAB. Absent: accessory muscle use, rales, rhonchi, wheezes - Cardiovascular Cardiovascular exam: Present: irregular rhythm - GI/Abdominal GI/Abdominal exam: Present: normal bowel sounds, soft, no peritoneal signs. Absent: distended, tenderness - Extremities Exam Extremities exam: Present: warm, radial pulses palpable and symmetrical. Absent : calf tenderness, cyanotic, pedal edema - Skin Skin exam: Present: dry, intact - Other Additional findings: port in right upper chest without signs of erythema, edema or drainage. Internal Medicine: Result - Labs CBC & Chem 7: 06/17/17 03:40 06/17/17 03:40 Labs: Short CBC 06/17/17 Range/Units 03:40 WBC 4.6 (4.3-11.1) K/mcL Hgb 13.0 (12.9-16.9) g/dL Hct 37.5 (37.5-50.1) % Plt Count 98 L (140-400) K/mcL BMP 06/17/17 03:40 Sodium 133 L Potassium 3.6 Chloride 101 Carbon Dioxide 26 BUN 17 Creatinine 0.90 Glucose 109 H Calcium 8.4 L Liver Function 06/17/17 Range/Units 03:40 Total Bilirubin 0.4 (0.2-1.2) mg/dL AST 62 H (5-34) Units/L ALT 37 (0-55) Units/L Alkaline Phosphatase 83 (38-126) Units/L Albumin 2.6 L (3.5-5.0) g/dL - ABG Interpretation ABG results: PT/INR, D-dimer PT 11.8 Seconds (9.4-12.1) 06/15/17 12:50 Consult Discharge Plan - Plan [facility]errals: [facility] [Primary Care Provider[facility] - <Jc Guerrier H - Last Filed: 06/17/17 16:04> Date of Encounter: 06/17/17 - Constitutional Vitals: Temp Pulse Resp BP Pulse Ox 97.5 F L 121 15 106/78 98 06/17/17 15:43 06/17/17 15:43 06/17/17 15:43 06/17/17 15:43 06/17/17 15:43 Internal Medicine: Result - Labs CBC & Chem 7: 06/17/17 03:40 06/17/17 03:40 Labs: Short CBC 06/17/17 Range/Units 03:40 WBC 4.6 (4.3-11.1) K/mcL Hgb 13.0 (12.9-16.9) g/dL Hct 37.5 (37.5-50.1) % Plt Count 98 L (140-400) K/mcL BMP 06/17/17 03:40 Sodium 133 L Potassium 3.6 Chloride 101 Carbon Dioxide 26 BUN 17 Creatinine 0.90 Glucose 109 H Calcium 8.4 L Liver Function 06/17/17 Range/Units 03:40 Total Bilirubin 0.4 (0.2-1.2) mg/dL AST 62 H (5-34) Units/L ALT 37 (0-55) Units/L Alkaline Phosphatase 83 (38-126) Units/L Albumin 2.6 L (3.5-5.0) g/dL - ABG Interpretation ABG results: PT/INR, D-dimer PT 11.8 Seconds (9.4-12.1) 06/15/17 12:50 - Attending Attestation Hypotension after endoscopy possibly 2ry to dehydration and anesthesia start IVF consider CXR and Unasyn IV if aspiration PNA is suspected Grade ! esophageal varices found I examined this patient and my medical decision-making was reviewed with the Resident Physician. I agree with the documented findings, disposition and treatment plan as described except to the extent set forth below.
[2017-06-17] MEDS ORDERED: 0.9 % Sodium Chloride 500 ML IVC ONE (13:58)
[2017-06-17] MEDS: traMADol 50 MG TABLET PO PRN (21:01)
[2017-06-17] MEDS: Latanoprost 2.5 ML BOTTLE RIGHT EYE SCH (21:04)
[2017-06-18] MEDS: traMADol 50 MG TABLET PO PRN ×2 (06:15→15:04)
[2017-06-18] MEDS: *HR* Heparin 5,000 UNIT/ML VIAL SQ SCH (06:16)
[2017-06-18 06:29] VITALS: BP 176/87
[2017-06-18] MEDS: Budesonide/Formoterol 160/4.5 MDI IH SCH (07:41)
[2017-06-18 08:24] LABS: Alanine Aminotransferase 31 Units/L (0-55); Albumin 2.5 g/dL (3.5-5.0); Albumin/Globulin Ratio 0.7 (1.1-2.2); Alkaline Phosphatase 75 Units/L (38-126); Aspartate Amino Transferase 50 Units/L (5-34); BUN/Creatinine Ratio 18 (6-26); Bilirubin,Total 0.4 mg/dL (0.2-1.2); Blood Urea Nitrogen 17 mg/dL (8-26); Calcium 8.3 mg/dL (8.6-10.8); Carbon Dioxide 24 mEq/L (19-29); Chloride 101 mEq/L (98-109); Globulin 3.8 g/dL (2.4-3.5); Glucose 100 mg/dL (70-99); Osmolality,Calculated 276 (280-300); Sodium 132 mEq/L (136-145); Total Protein 6.3 g/dL (6.0-8.3); eGFR For African Americans > 60 (> 60); eGFR For Non-African Americans > 60 (> 60)
[2017-06-18 08:39] LABS: Basophils % 0.7 %
[2017-06-18 08:41] LABS: Eosinophils # 0.1 K/mcL (0.0-0.6); Eosinophils % 2.9 %; Hematocrit 34.2 % (37.5-50.1); Hemoglobin 11.9 g/dL (12.9-16.9); Immature Granulocytes % 0.5 % (0-4); Immature Platelets 14.3 % (1.1-6.1); Lymphocytes # 1.5 K/mcL (0.6-4.6); Lymphocytes % 32.9 %; Mean Corpuscular HGB Conc 34.8 g/dL (31.6-35.5); Mean Corpuscular Hemoglobin 34.4 pg (28.0-33.3); Mean Corpuscular Volume 98.8 fL (83.0-100.0); Mean Platelet Volume 12.9 fL (9.4-12.4); Monocytes # 0.6 K/mcL (0.0-1.3); Monocytes % 12.5 %; Neutrophils # 2.2 K/mcL (1.6-8.9); Red Blood Count 3.46 M/mcL (4.19-5.50); Red Cell Distribution Width 14.7 % (11.5-14.5); Segmented Neutrophils % 50.5 %
[2017-06-18 08:48] LABS: Platelet Count 87 K/mcL (140-400)
[2017-06-18] MEDS: Gabapentin 400 MG CAPSULE PO SCH ×2 (09:07→15:01)
[2017-06-18] MEDS: Metoprolol XL (24 HR) Succ 25 MG TAB.ER.24H PO SCH (09:07)
[2017-06-18] MEDS: Cholecalciferol (D-3) 1,000 UNIT TABLET PO SCH (09:07)
[2017-06-18] MEDS: Sennosides 8.6 MG TABLET PO SCH (09:07)
[2017-06-18] MEDS: Loratadine 10 MG TABLET PO SCH (09:07)
[2017-06-18] MEDS: Aspirin Enteric Coated 81 MG Tablet PO SCH (09:07)
[2017-06-18] MEDS: Thiamine (B-1) 100 MG TABLET PO SCH (09:07)
[2017-06-18] MEDS: Lactobacillus 1 EACH CAP.SPRINK PO SCH (09:07)
[2017-06-18] MEDS: Multivit/Ca/Min/Fe/FA 1 TAB TABLET PO SCH (09:07)
[2017-06-18] MEDS: Artificial Tears SOLN 15 ML BOTTLE BOTH EYES SCH (09:08)
[2017-06-18] MEDS: Saliva Stimulant 100ml BOTTLE MM SCH ×2 (09:08→15:01)
--- NOTE | 2017-06-18 15:37 | Discharge Summary ---
Date of Encounter: 06/18/17 Time of Encounter: 11:00 - Discharge Medications Home Medications: Albuterol Sulfate [Albuterol Inhaler] 2 puff IH QID PRN 09/18/16 [History] Bisacodyl [Laxative] 5 mg PO Q48H 09/18/16 [History] Budesonide/Formoterol 160/4.5 [Symbicort 160/4.5] 2 puff IH BIDR #1 hfa.aer.ad 09/18/16 [Rx] Gabapentin [Neurontin] 800 mg PO TID 09/18/16 [History] Hydrophilic Cream [Basle] 1 appl TP DAILY 09/18/16 [History] Ketotifen Fumarate 1 drop OP BID 09/18/16 [History] Multivitamin [Multivitamins] 1 tab PO DAILY 09/18/16 [History] Peg 400/Hypromellose/Glycerin [Visine Tired Eye Relief Drop] 1 drop BOTH EYES TID 09/18/16 [History] Tamsulosin HCl [Flomax] 0.4 mg PO HS #30 cap.er.24h 12/25/16 [Rx] Carbamide Peroxide [Ear Drops] 4 drop BOTH EYES DAILY 01/16/17 [History] Latanoprost [Xalatan] 1 drop OP HS 01/16/17 [History] Oxycodone HCl [Oxaydo] 5 mg PO BID PRN 01/16/17 [History] Pravastatin Sodium [Pravachol] 40 mg PO HS #30 tablet 02/03/17 [Rx] Escitalopram [Lexapro] 10 mg PO DAILY 04/22/17 [History] Ferrous Sulfate 325 mg PO Q48H 04/22/17 [History] Furosemide [Lasix] 20 mg PO QMWF 04/22/17 [History] GuaiFENesin/Dextromethorphan [Robitussin/Dm] 10 ml PO Q6HR PRN 04/22/17 [History ] Lactobacillus [Culturelle] 1 cap PO BID 04/22/17 [History] Lidocaine Viscous Oral Soln 5 ml MM Q2H PRN 04/22/17 [History] Loratadine [Allergy Relief] 10 mg PO DAILY 04/22/17 [History] Metoprolol Succinate 12.5 mg PO DAILY 04/22/17 [History] Midodrine HCl 5 mg PO TID 04/22/17 [History] Nitroglycerin [Nitrostat] 0.4 mg SL AD PRN 04/22/17 [History] Pantoprazole Sodium [Protonix] 40 mg PO DAILY 04/22/17 [History] Prochlorperazine Maleate [Compazine] 10 mg PO Q6HR PRN 04/22/17 [History] Sennosides [Laxative] 17.2 mg PO BID 04/22/17 [History] Simethicone [Gas-X] 160 mg PO TID PRN 04/22/17 [History] Thiamine (B-1) [Vitamin B-1] 100 mg PO DAILY 04/22/17 [History] Tramadol HCl [Ultram] 50 mg PO QID PRN 04/22/17 [History] Zolpidem [Ambien] 5 mg PO HS 04/22/17 [History] Aspirin [Lo-Dose Aspirin EC] 81 mg PO DAILY 06/15/17 [History] Clindamycin Phosphate [Cleocin T] 1 appl TP DAILY PRN 06/15/17 [History] Ergocalciferol (VITAMIN D2) [Vitamin D] 1,200 unit PO DAILY 06/15/17 [History] Hydrocortisone 1% CREAM [Cortaid] 1 appl TP DAILY PRN 06/15/17 [History] Magic Mouthwash [Magic Mouthwash BLM] 10 ml PO QID PRN 06/15/17 [History] Propylene Glycol/Peg 400 [Systane 0.3-0.4% Eye Drops] 2 drop BOTH EYES BID 06/15 [History] Saliva Stimulant [Biotene Moisturizing Rinse] 1 - 2 spray MM AD PRN 06/15/17 [ History] Thiamine (B-1) [Vitamin B-1] 100 mg PO BID 06/15/17 [History] Allergies/Adverse Reactions: 3 Allergy/AdvReac Type Severity Reaction Status Date / Time baclofen Allergy Rash Verified 05/13/17 15:38 cetuximab [From Erbitux] Allergy Hives Verified 05/13/17 15:38 Diclofenac Allergy Itching Verified 05/13/17 15:38 ibuprofen AdvReac Nausea Verified 05/13/17 15:38 Procedures/tests Complete & Pending: Procedures Performed prior 72 hours Category Date Time Status CT abd pelvis w iv and oral [CT] Stat Cat Scan 11/18/17 14:45 Completed Date of admission: 06/15/17 01:05 [facility] care physician: [facility] Consults: 06/15/17 02:04 Consult to Cardiology [CONS] Routine Comment: Consulting Provider: Cardiology Krys Reason for Consult: Afib with RVR, [facility] Call Completed: No 06/15/17 11:27 Consult to Nutrition [CONS] Routine Comment: decreased appetite, h/o throat cancer Consulting Provider: NUTRITION Reason for Dietary Consult: PO Supplementation 06/16/17 08:17 Consult to Physical Therapy [CONS] Routine Comment: Evaluate, develop and implement POC Reason for Consult: weakness OT [Consult to Occupational Therapy] [CONS] Routine Comment: Evaluate, develop and implement POC Reason for Consult: weakness 06/16/17 12:39 Consult to Physician [CONS] Routine Consulting Provider: Gustavo Sanderson Reason for Consult: Abd pain, stomach mass, possible need for EGD w/ biopsy Time Notified: 11:42 Call Completed: Yes - Patient Status Disposition: Home Health Service - Discharge Instructions Instructions: Atrial Fibrillation (DC), Diverticulitis (DC) Follow [facility] With: [facility]Primary Care Provider[facility] - Hospital course: Patient is a 77-year-old male with past medical history significant for head and neck cancer, COPD, CAD, Afib with prior admissions for RVR, not on anticoagulation due to chronic thrombocytopenia, also patient has chronic hyponatremia who presented to [facility] with shortness of breath. He was found to be in Afib with RVR at the referring center, his RVR resolved with Cardizem bolus and infusion. Work up revealed pulmonary edema as well as elevated BNP 1304, troponin 0.04. Patient did not have chest pain EKG showed non-specific ST segment changes Patient also received one dose of SQ lovenox prior to transfer to [facility]. During patients hospital stay, cardiology was consulted for itch or fibrillation with RVR and heart failure exacerbation. Recommendations for continued IV diuresis and to start an AV nick jocelyn such as Toprol. - Time Spent with Patient Total time spent providing and/or coordinating discharge services: Less than 30 minutes - Constitutional Vitals: Temp Pulse Resp BP Pulse Ox 97.9 F 72 18 176/87 99 06/18/17 06:27 06/18/17 06:27 06/18/17 06:27 06/18/17 06:27 06/18/17 06:27 General appearance: Present: cachectic, cooperative, A&O X 3, pleasant, no acute distress, answers questions appropriately - Cardiovascular Cardiovascular exam: Present: RRR, +S1, +S2. Absent: diastolic murmur, gallop, rubs, systolic murmur
--- NOTE | 2017-06-18 15:38 | Physician Discharge Referral ---
Home Health/Hosp Referral Info Transfer to: Home Health - Respiratory Orders Smoking Cessation: Smoking cessation has been advised. For more information, call the [place] Tobacco Quit Line at 2-800-VUON-NOW. - Services Needed Following services are medically necessary services: Home Health Aide, Physical Therapy - Transfer Medications Home Medications: Albuterol Sulfate [Albuterol Inhaler] 2 puff IH QID PRN 09/18/16 [History] Bisacodyl [Laxative] 5 mg PO Q48H 09/18/16 [History] Budesonide/Formoterol 160/4.5 [Symbicort 160/4.5] 2 puff IH BIDR #1 hfa.aer.ad 09/18/16 [Rx] Gabapentin [Neurontin] 800 mg PO TID 09/18/16 [History] Hydrophilic Cream [Basle] 1 appl TP DAILY 09/18/16 [History] Ketotifen Fumarate 1 drop OP BID 09/18/16 [History] Multivitamin [Multivitamins] 1 tab PO DAILY 09/18/16 [History] Peg 400/Hypromellose/Glycerin [Visine Tired Eye Relief Drop] 1 drop BOTH EYES TID 09/18/16 [History] Tamsulosin HCl [Flomax] 0.4 mg PO HS #30 cap.er.24h 12/25/16 [Rx] Carbamide Peroxide [Ear Drops] 4 drop BOTH EYES DAILY 01/16/17 [History] Latanoprost [Xalatan] 1 drop OP HS 01/16/17 [History] Oxycodone HCl [Oxaydo] 5 mg PO BID PRN 01/16/17 [History] Pravastatin Sodium [Pravachol] 40 mg PO HS #30 tablet 02/03/17 [Rx] Escitalopram [Lexapro] 10 mg PO DAILY 04/22/17 [History] Ferrous Sulfate 325 mg PO Q48H 04/22/17 [History] Furosemide [Lasix] 20 mg PO QMWF 04/22/17 [History] GuaiFENesin/Dextromethorphan [Robitussin/Dm] 10 ml PO Q6HR PRN 04/22/17 [History ] Lactobacillus [Culturelle] 1 cap PO BID 04/22/17 [History] Lidocaine Viscous Oral Soln 5 ml MM Q2H PRN 04/22/17 [History] Loratadine [Allergy Relief] 10 mg PO DAILY 04/22/17 [History] Metoprolol Succinate 12.5 mg PO DAILY 04/22/17 [History] Midodrine HCl 5 mg PO TID 04/22/17 [History] Nitroglycerin [Nitrostat] 0.4 mg SL AD PRN 04/22/17 [History] Pantoprazole Sodium [Protonix] 40 mg PO DAILY 04/22/17 [History] Prochlorperazine Maleate [Compazine] 10 mg PO Q6HR PRN 04/22/17 [History] Sennosides [Laxative] 17.2 mg PO BID 04/22/17 [History] Simethicone [Gas-X] 160 mg PO TID PRN 04/22/17 [History] Thiamine (B-1) [Vitamin B-1] 100 mg PO DAILY 04/22/17 [History] Tramadol HCl [Ultram] 50 mg PO QID PRN 04/22/17 [History] Zolpidem [Ambien] 5 mg PO HS 04/22/17 [History] Aspirin [Lo-Dose Aspirin EC] 81 mg PO DAILY 06/15/17 [History] Clindamycin Phosphate [Cleocin T] 1 appl TP DAILY PRN 06/15/17 [History] Ergocalciferol (VITAMIN D2) [Vitamin D] 1,200 unit PO DAILY 06/15/17 [History] Hydrocortisone 1% CREAM [Cortaid] 1 appl TP DAILY PRN 06/15/17 [History] Magic Mouthwash [Magic Mouthwash BLM] 10 ml PO QID PRN 06/15/17 [History] Propylene Glycol/Peg 400 [Systane 0.3-0.4% Eye Drops] 2 drop BOTH EYES BID 06/15 [History] Saliva Stimulant [Biotene Moisturizing Rinse] 1 - 2 spray MM AD PRN 06/15/17 [ History] Thiamine (B-1) [Vitamin B-1] 100 mg PO BID 06/15/17 [History] Allergies/Adverse Reactions: 3 Allergy/AdvReac Type Severity Reaction Status Date / Time baclofen Allergy Rash Verified 05/13/17 15:38 cetuximab [From Erbitux] Allergy Hives Verified 05/13/17 15:38 Diclofenac Allergy Itching Verified 05/13/17 15:38 ibuprofen AdvReac Nausea Verified 05/13/17 15:38 Certification: Further, I certify that my clinical findings support that this patient is homebound (i.e. absences from home require considerable and taxing effort and are for medical reasons or sikhism services or infrequently or short duration when for other reasons) because: Homebound Reason: Patient requires assistance of a person or device to safely leave home Attestation: My signature below is to certify that this patient is under my care and that I, or nurse practitioner, or a physician's assistant professor of spanish working with me, has a face-to -face encounter with this patient.
== END 2017-06-18 16:33 | disposition home health service (06) | DRG 291 ==
LOC: 2NENU → SUATTDRO 06-15 01:05
PROVIDERS: ADMIT Internal Medicine; ATTEND Hospitalist
PROC: ENDOEBX (2017-06-17 11:00)

== ENCOUNTER 2017-12-16 21:21 | Inpatient (IN) ==
--- NOTE | 2017-12-17 03:08 | Internal Med History&Physical ---
<Kun Arellano - Last Filed: 12/17/17 03:49> Date of Encounter: 12/17/17 Time of Encounter: 03:03 Internal Medicine - H&P: HPI Chief complaint: dehydration Admitted From: Home Plans for Post Hospital Care: Home History of present illness: Mr. Post is a 77 year old male w/ pmh of afib, throat cancer, CAD, HTN presents with weakness and dizziness, and rapid heart rate. Patient was seen sleeping, history was gathered per chart review and per on-shift nurse. Patient on 12/16/17 started developing weakness and dizziness during the day which further progressed, which led him to go to [place] for evaluation. Per report, patient has previously had similar symptoms when he's been dehydrated which he states he's been outside more recently and has not increased his fluid intake. At [place], he was found to be in Aflutter w/ RVR and subsequently transferred to [place]. On transfer to [place], patient admitted to nurse that he had a rapid heart rate. Nurse reports patient was really hungry on arrival and very agitated because he had trouble sleeping. Patient denied on admission to have Chest pain, SOB, nausea, vomiting. Patient was awoken and he states he is DNR/DNI/CCA. Past Med Surg Social Fam HX - Past Medical History Medical history: atrial fibrillation, cancer, coronary artery disease, hypertension, myocardial infarction Psychiatric history: no psych history - Past Surgical History Surgical History: carotid endarterectomy, cataract, hip replacement, knee replacement, orthopedic, other - Social History Smoking Status: Former smoker Smokeless Tobacco Status: No Alcohol use: none Drug use: none - Family History Father Living Status: Age at : 61 Cause of : [place] Hx Family Cardiac Disorders: Yes Mother Living Status: Age at : 88 Cause of : unknown Hx Family Cardiac Disorders: Yes Internal Medicine - H&P: Meds Oxycodone HCl [Oxaydo] 5 mg PO QID 01/16/17 [History] Metoprolol Succinate 25 mg PO DAILY 04/22/17 [History] Thiamine (B-1) [Vitamin B-1] 100 mg PO BID 04/22/17 [History] Tramadol HCl [Ultram] 50 mg PO QID PRN 04/22/17 [History] Aspirin [Lo-Dose Aspirin EC] 81 mg PO DAILY 06/15/17 [History] Bisacodyl [Woman's Laxative] 5 mg PO Q48H 09/10/17 [History] Pregabalin [Lyrica] 75 mg PO BID 10/02/17 [History] traZODone [TraZODone] 50 mg PO HS 10/02/17 [History] Multivitamin [One Daily Essential] 1 tab PO DAILY 10/15/17 [History] Pantoprazole Sodium [Protonix] 40 mg PO DAILY 10/15/17 [History] Tizanidine HCl 2 mg PO TID 10/15/17 [History] Alendronate Sodium [Fosamax] 70 mg PO QWEEK #4 tab 12/12/17 [Rx] Calc/D3/Mag/Zn/Billy/Ketan/Spooner [Calcium 600 mg Plus Vit D Tab] 1 each PO BID # 60 tablet 12/12/17 [Rx] 3 Allergy/AdvReac Type Severity Reaction Status Date / Time baclofen Allergy Rash Verified 12/02/17 11:41 cetuximab [From Erbitux] Allergy Hives Verified 12/02/17 11:41 Diclofenac Allergy Itching Verified 12/02/17 11:41 ibuprofen AdvReac Nausea Verified 12/02/17 11:41 ROS unobtainable: other All Systems PM: A 10-system review of systems was performed and is negative for pertinent findings except as documented above in the HPI. - Constitutional Constitutional: no chills, no fever(s), no night sweats - EENT Eyes: no change in vision, no discharge, no pain, no photophobia Ears: no ear discharge, no ear pain, no tinnitus Nose, mouth and throat: no dysphagia, no nasal discharge, no neck pain, no sore throat - Cardiovascular Cardiovascular ROS IM: irregular heart rhythm, no chest pain, no diaphoresis, no dyspnea, no lightheadedness, no palpitations, no syncope - Respiratory Respiratory: no cough, no dyspnea, no wheezing, no excessive phlegm production - Gastrointestinal Gastrointestinal: no abdominal pain, no diarrhea, no hematemesis, no hematochezia, no melena, no nausea, no vomiting - Musculoskeletal Musculoskeletal ROS IM: no numbness, no tingling - Integumentary Integumentary IM: no rash, no unusual bruising - Neurological Neurological ROS: no confusion, no convulsions, no focal weakness, no numbness, no tingling, no tremor(s) - Hematologic/Lymphatic Hematologic/Lymphatic: no easy bruising - Constitutional Vitals: Temp Pulse Resp BP Pulse Ox 97.7 F 107 16 97/64 99 12/17/17 01:20 12/17/17 01:20 12/17/17 01:20 12/17/17 01:20 12/17/17 01:50 General appearance: Present: cachectic, cooperative, A&O X 3, no acute distress - Head Head exam: Present: atraumatic, normocephalic - Eye Eye exam: Present: PERRL, conjuntiva pink, sclera anicteric Pupils: Present: PERRL - Neck Neck exam general surgery: Present: supple, trachea midline. Absent: lymphadenopathy - Respiratory Respiratory exam: Present: CTAB. Absent: accessory muscle use, rales, respiratory distress, rhonchi, wheezes - Cardiovascular Cardiovascular exam: Present: irregular rhythm, tachycardia. Absent: diastolic murmur, gallop, rubs, systolic murmur - GI/Abdominal GI/Abdominal exam: Present: normal bowel sounds, soft, no peritoneal signs. Absent: distended, tenderness - Extremities Exam Extremities exam: Present: warm, radial pulses palpable and symmetrical. Absent : calf tenderness, cyanotic, pedal edema - Neurological Exam Neurological exam: Present: CN II-XII intact, oriented X3, no focal deficits. Absent: pronater drift, facial droop, speech deficit - Skin Skin exam: Present: dry, intact - Assessment and plan (1) Dehydration Current Visit: Yes Status: Acute Assessment and plan: most likely the underlying cause for patients symptoms. Patient is elderly and frail, will gently rehydrate patient. U/A at [place] was suggestive of concentrated urine, and on exam patient is hypovolemic/dry appearing. - continue IVF (2) Hyponatremia Current Visit: Yes Status: Chronic Assessment and plan: Na at [place] is 126, most likely secondary to dehydration. sOSM low and hypovolemic clinical exam, suggests patient is hypotonic hypovolemic hyponatremic. Expect to recover after IVF NS resuscitation. If patient becomes AMS or seizes, will administer 3% NaCl IVF. - ct IVF - uOSM, and Fatimah ordered - serial clinical fluid status exams - follow urine output - serial Na labs, first check at 4 am with morning labs (3) Atrial flutter Current Visit: Yes Status: Acute Assessment and plan: Patient has known hx of afib, on admission to [place] patient HR >100 and in Aflutter. EKG confirmed aflutter. Will treat underlying cause of dehydration. Will continue home Rx for now. Patient was hypotensive at [place], will hold off on administering other rate or rhythm control until patient is better fluid resuscitated. [id number] Score is 4, prior to D/C further discussion should be had with patient in regards of anticoagulation. - continue home metoprolol, ASA - tele monitoring - lopressor PRN Qualifiers: Qualified Code(s): I48.92 - Unspecified atrial flutter (4) Acute kidney injury Current Visit: Yes Status: Acute Assessment and plan: Cr at [place] 1.62, most likely secondary to dehydration. Will fluid resuscitate, and continue to monitor. Expect improvement with IVF. (5) CAD (coronary artery disease) Current Visit: Yes Status: Chronic Assessment and plan: previous hx of CAD. Currently stable, but patient is high risk. continue asa. Qualifiers: Coronary Disease-Associated Artery/Lesion type: three affiliated artery [place] vs. transplanted heart: three affiliated heart Associated angina: without angina Qualified Code(s): I25.10 - Atherosclerotic heart disease of [place] coronary artery without angina pectoris (6) COPD (chronic obstructive pulmonary disease) Current Visit: Yes Status: Chronic Assessment and plan: currently stable, provide respiratory support as needed. Qualifiers: COPD type: unspecified COPD Qualified Code(s): J44.9 - Chronic obstructive pulmonary disease, unspecified (7) HTN (hypertension) Current Visit: Yes Status: Chronic Assessment and plan: continue to monitor, continue home rx Qualifiers: Hypertension type: essential hypertension Qualified Code(s): I10 - Essential (primary) hypertension (8) Protein-calorie malnutrition, severe Current Visit: Yes Status: Chronic Assessment and plan: Patient is cachectic appearing. On admission to [place], patient is hungry. Patient has known hx of malnutrition, allow patient to eat what he can handle. 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 Samm Cedillo. Stage 4 Right tonsil initially diagnosed 08/28/16 complete ctuximab on 01/12. Radiation treatment 10/29/16-12/20/2016 (10) Thrombocytopenia Current Visit: Yes Status: Chronic Assessment and plan: chronic. (11) Cirrhosis Current Visit: Yes Status: Acute Assessment and plan: previously documented cirrhosis. Currently stable. AST mildly elevated at [place]. Qualifiers: Qualified Code(s): K74.60 - Unspecified cirrhosis of liver (12) Tobacco abuse Current Visit: Yes Status: Acute Assessment and plan: patient has heavy smoking hx. Patient not currently a smoker. (13) Pulmonary nodules Current Visit: Yes Status: Acute Assessment and plan: known hx of pulmonary nodules. (14) DVT prophylaxis Current Visit: Yes Status: Acute Assessment and plan: sq heparin (15) Congestive heart failure with preserved left ventricular function, NYHA class 1 Current Visit: Yes Status: Acute Assessment and plan: currently stable. last echo 05/2017 LVEF 60% - cardiac monitoring - cardiac diet - Time Spent With Patient Total time spent is greater than 50% in coordination of care (as documented) at patient's floor/unit and/or counseling patient: <Abhay King P - Last Filed: 12/17/17 05:51> Date of Encounter: 12/17/17 Internal Medicine - H&P: HPI History of present illness: Mr. Post is a 77 year old male All Systems PM: A 10-system review of systems was performed and is negative for pertinent findings except as documented above in the HPI. - Constitutional Vitals: Temp Pulse Resp BP Pulse Ox 97.7 F 60 16 136/73 98 12/17/17 05:03 12/17/17 05:03 12/17/17 05:03 12/17/17 05:03 12/17/17 05:03 Internal Med - H&P Results - Labs CBC & Chem 7: 12/17/17 04:04 12/17/17 04:04 Labs: Short CBC 12/17/17 Range/Units 04:04 WBC 2.5 L (4.3-11.1) K/mcL Hgb 11.6 L D (12.9-16.9) g/dL Hct 32.2 L (37.5-50.1) % Plt Count 63 L (140-400) K/mcL Neutrophils # 0.7 L (1.6-8.9) K/mcL BMP 12/17/17 04:04 Sodium 131 L Potassium 3.4 L Chloride 104 Carbon Dioxide 22 L BUN 38 H Creatinine 1.24 Glucose 107 H Calcium 8.4 L Cardiac Enzymes 12/17/17 Range/Units 04:04 Troponin I 0.04 H* (< 0.04) ng/mL Liver Function 12/17/17 Range/Units 04:04 Total Bilirubin 0.4 (0.3-1.0) mg/dL AST 57 H (13-39) Units/L ALT 23 (7-52) Units/L Alkaline Phosphatase 94 (34-104) Units/L Albumin 2.7 L (3.5-5.7) g/dL - Attending Attestation I have seen the patient and performed my own physical examination on 12/17/17. I have discussed the case with the resident physician. I agree with the resident physicians plan of care as documented in his history and physical note. Briefly, patient presented to [place] ED with generalized weakness/ malaise for last few days. He was found to be in Atrial flutter; he has history of AFib. He was tachycardic and hypotensive. He got IVF and symptoms got better, and HR and BP improved. Troponin negative. Will resume home metoprolol for rate control. Will continue to hydrate with IVF. Recheck labs in AM. He has mild hyponatremia, so will do serial sodium checks so as not to overcorrect. Patient is feeling better at this time, but still feeling weak. Will monitor closely. - Assessment and plan (1) Hyponatremia Current Visit: Yes Status: Chronic (2) HTN (hypertension) Current Visit: Yes Status: Chronic Qualifiers: Hypertension type: essential hypertension Qualified Code(s): I10 - Essential (primary) hypertension (3) CAD (coronary artery disease) Current Visit: Yes Status: Chronic Qualifiers: Coronary Disease-Associated Artery/Lesion type: three affiliated artery [place] vs. 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 (5) Protein-calorie malnutrition, severe Current Visit: Yes Status: Chronic (6) DVT prophylaxis Current Visit: Yes Status: Acute (7) COPD (chronic obstructive pulmonary disease) Current Visit: Yes Status: Chronic Qualifiers: COPD type: unspecified COPD Qualified Code(s): J44.9 - Chronic obstructive pulmonary disease, unspecified (8) Thrombocytopenia Current Visit: Yes Status: Chronic (9) Atrial flutter Current Visit: Yes Status: Acute Qualifiers: Qualified Code(s): I48.92 - Unspecified atrial flutter (10) Dehydration Current Visit: Yes Status: Acute (11) Acute kidney injury Current Visit: Yes Status: Acute (12) Cirrhosis Current Visit: Yes Status: Acute Qualifiers: Qualified Code(s): K74.60 - Unspecified cirrhosis of liver (13) Tobacco abuse Current Visit: Yes Status: Acute (14) Pulmonary nodules Current Visit: Yes Status: Acute (15) Congestive heart failure with preserved left ventricular function, NYHA class 1 Current Visit: Yes Status: Acute - Time Spent With Patient Total time spent is greater than 50% in coordination of care (as documented) at patient's floor/unit and/or counseling patient:
[2017-12-17] MEDS ORDERED: Naloxone 0.4 MG/ML INJ IVP PRN (03:14)
[2017-12-17] MEDS ORDERED: 0.9 % Sodium Chloride 1,000 ML IVC SCH (03:15)
[2017-12-17] MEDS ORDERED: traMADol 50 MG TABLET PO PRN (03:21)
[2017-12-17] MEDS ORDERED: NON-FORMULARY MEDICATION 1 EACH EACH (Alendronate Sodium [Fosamax] 70 MG) PO SCH (03:30)
[2017-12-17] MEDS ORDERED: *HR* Metoprolol 5 MG/5 ML VIAL IVP PRN (03:47)
[2017-12-17] MEDS ORDERED: 0.9 % Sodium Chloride 500 ML IVC ONE (03:48)
[2017-12-17 04:17] LABS: Basophils % 0.4 %; Hemoglobin 11.6 g/dL (12.9-16.9); Immature Granulocytes % 0.4 % (0-4); Red Blood Count 3.31 M/mcL (4.19-5.50)
[2017-12-17 04:19] LABS: Eosinophils % 1.2 %; Hematocrit 32.2 % (37.5-50.1); Immature Platelets 12.3 % (1.1-6.1); Lymphocytes # 1.4 K/mcL (0.6-4.6); Lymphocytes % 54.8 %; Mean Corpuscular Volume 97.3 fL (83.0-100.0); Mean Platelet Volume 13.3 fL (9.4-12.4); Monocytes # 0.4 K/mcL (0.0-1.3); Neutrophils # 0.7 K/mcL (1.6-8.9); Segmented Neutrophils % 29.2 %
[2017-12-17 04:23] LABS: INR 1.1; Prothrombin Time 11.3 Seconds (9.4-12.1)
[2017-12-17 04:26] LABS: Activated Partial Thrombo Time 30.6 Seconds (26.0-36.0)
[2017-12-17 04:33] LABS: Platelet Count 63 K/mcL (140-400)
[2017-12-17 04:35] LABS: Platelet Estimate Decreased (Normal)
[2017-12-17 04:37] LABS: Alanine Aminotransferase 23 Units/L (7-52); Albumin 2.7 g/dL (3.5-5.7); Albumin/Globulin Ratio 0.9 (1.1-2.2); Alkaline Phosphatase 94 Units/L (34-104); Aspartate Amino Transferase 57 Units/L (13-39); BUN/Creatinine Ratio 31 (6-26); Bilirubin,Total 0.4 mg/dL (0.3-1.0); Blood Urea Nitrogen 38 mg/dL (8-23); Calcium 8.4 mg/dL (8.6-10.3); Carbon Dioxide 22 mEq/L (23-29); Chloride 104 mEq/L (98-107); Glucose 107 mg/dL (70-105); Osmolality,Calculated 282 (280-300); Potassium 3.4 mEq/L (3.5-5.1); Sodium 131 mEq/L (136-145); Total Protein 5.7 g/dL (6.4-8.9); eGFR For African Americans > 60 (> 60); eGFR For Non-African Americans 56 (> 60)
[2017-12-17] MEDS: *HR* Heparin 5,000 UNIT/ML VIAL SQ SCH ×2 (05:24→17:55)
--- NOTE | 2017-12-17 07:58 | Internal Med Progress Note ---
Date of Encounter: 12/17/17 Time of Encounter: 07:56 - Assessment and plan (1) Atrial flutter Current Visit: Yes Status: Acute Assessment and plan: A flutter with RVR possibly secondary to dehydration and UTI Patient was hypotensive at [place] [id number] Score is 4, prior to D/C further discussion should be had with patient in regards of anticoagulation. - continue home metoprolol, ASA Cefepime IVF Qualifiers: Qualified Code(s): I48.92 - Unspecified atrial flutter (2) Thrombocytopenia Current Visit: Yes Status: Chronic Assessment and plan: Pancytopenia with neutropenia of 0.7 Consider antibiotic therapy if drops below 0.5. UA showed possible UTI Start Cefepime, culture pending (3) Hyponatremia Current Visit: Yes Status: Chronic Assessment and plan: Na was 126, most likely secondary to dehydration/poor oral intake. IVF (4) HTN (hypertension) Current Visit: Yes Status: Chronic Assessment and plan: stable Qualifiers: Hypertension type: essential hypertension Qualified Code(s): I10 - Essential (primary) hypertension (5) CAD (coronary artery disease) Current Visit: Yes Status: Chronic Assessment and plan: previous hx of CAD. . continue asa. Qualifiers: Coronary Disease-Associated Artery/Lesion type: [place] artery [place] vs. 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 Samm Cedillo. Stage 4 Right tonsil initially diagnosed 08/28/16 complete ctuximab on 01/12. Radiation treatment 10/29/16-12/20/2016 (7) Protein-calorie malnutrition, severe Current Visit: Yes Status: Chronic Assessment and plan: Patient is cachectic appearing. start marinol (8) COPD (chronic obstructive pulmonary disease) Current Visit: Yes Status: Chronic Assessment and plan: currently stable Qualifiers: COPD type: unspecified COPD Qualified Code(s): J44.9 - Chronic obstructive pulmonary disease, unspecified (9) Dehydration Current Visit: Yes Status: Acute (10) Acute kidney injury Current Visit: Yes Status: Acute Assessment and plan: Cr at [place] 1.62, most likely secondary to dehydration. (11) Cirrhosis Current Visit: Yes Status: Acute Qualifiers: Qualified Code(s): K74.60 - Unspecified cirrhosis of liver (12) Tobacco abuse Current Visit: Yes Status: Acute Assessment and plan: patient has heavy smoking hx. Patient not currently a smoker. (13) Pulmonary nodules Current Visit: Yes Status: Acute (14) Congestive heart failure with preserved left ventricular function, NYHA class 1 Current Visit: Yes Status: Acute Assessment and plan: No exacerbation , Diastolic CHF last echo 05/2017 LVEF 60% (15) Urinary tract infection Current Visit: Yes Status: Acute Qualifiers: Urinary tract infection type: acute cystitis Hematuria presence: without hematuria Qualified Code(s): N30.00 - Acute cystitis without hematuria - Time Spent With Patient Total time spent is greater than 50% in coordination of care (as documented) at patient's floor/unit and/or counseling patient: - Subjective Interval history: Still feeling weak. Denies any chest pain or shortness of breath, no fevers, no nausea or vomiting, no diarrhea, no dysuria - Constitutional Vitals: Temp Pulse Resp BP Pulse Ox 97.6 F 59 16 123/73 100 12/17/17 06:41 12/17/17 06:41 12/17/17 06:41 12/17/17 06:41 12/17/17 06:41 General appearance: Present: cachectic, cooperative, A&O X 3, no acute distress - Head Head exam: Present: atraumatic, normocephalic - Eye Eye exam: Present: PERRL, conjuntiva pink, sclera anicteric Pupils: Present: PERRL - Neck Neck exam general surgery: Present: supple, trachea midline. Absent: lymphadenopathy - Respiratory Respiratory exam: Present: CTAB. Absent: accessory muscle use, rales, rhonchi, wheezes - Cardiovascular Cardiovascular exam: Present: RRR, +S1, +S2. Absent: diastolic murmur, gallop, rubs, systolic murmur - GI/Abdominal GI/Abdominal exam: Present: normal bowel sounds, soft, no peritoneal signs. Absent: distended, tenderness - Extremities Exam Extremities exam: Present: warm, radial pulses palpable and symmetrical. Absent : calf tenderness, cyanotic, pedal edema - Neurological Exam Neurological exam: Present: CN II-XII intact, oriented X3, no focal deficits. Absent: pronater drift, facial droop, speech deficit - Skin Skin exam: Present: dry, intact Internal Medicine: Result - Labs CBC & Chem 7: 12/17/17 04:04 12/17/17 04:04 Labs: Short CBC 12/17/17 Range/Units 04:04 WBC 2.5 L (4.3-11.1) K/mcL Hgb 11.6 L D (12.9-16.9) g/dL Hct 32.2 L (37.5-50.1) % Plt Count 63 L (140-400) K/mcL Neutrophils # 0.7 L (1.6-8.9) K/mcL BMP 12/17/17 04:04 Sodium 131 L Potassium 3.4 L Chloride 104 Carbon Dioxide 22 L BUN 38 H Creatinine 1.24 Glucose 107 H Calcium 8.4 L Cardiac Enzymes 12/17/17 Range/Units 04:04 Troponin I 0.04 H* (< 0.04) ng/mL Liver Function 12/17/17 Range/Units 04:04 Total Bilirubin 0.4 (0.3-1.0) mg/dL AST 57 H (13-39) Units/L ALT 23 (7-52) Units/L Alkaline Phosphatase 94 (34-104) Units/L Albumin 2.7 L (3.5-5.7) g/dL - ABG Interpretation ABG results: PT/INR, D-dimer PT 11.3 Seconds (9.4-12.1) 12/17/17 04:04 Consult Discharge Plan - Plan [facility]Primary Care Provider[facility] -
[2017-12-17] MEDS ORDERED: Cefepime HCl 1,000 MG in D5% in Water (Mini-Bag+) 100 ML IVPB SCH (08:04)
[2017-12-17] MEDS: Thiamine (B-1) 100 MG TABLET PO SCH ×2 (09:01→21:56)
[2017-12-17] MEDS: Multivit/Ca/Min/Fe/FA 1 TAB TABLET PO SCH (09:01)
[2017-12-17] MEDS: Pregabalin 75 MG CAPSULE PO SCH ×2 (09:02→21:56)
[2017-12-17] MEDS: Metoprolol XL (24 HR) Succ 25 MG TAB.ER.24H PO SCH (09:02)
[2017-12-17] MEDS: Cefepime HCl 1,000 MG in Water for inj. (sterile) 20 ML 10 ML IVP SCH ×2 (09:02→17:54)
[2017-12-17] MEDS: Aspirin Enteric Coated 81 MG Tablet PO SCH (09:02)
[2017-12-17] MEDS: tiZANidine 4 MG TABLET PO SCH ×3 (09:04→21:56)
[2017-12-17] MEDS: *HR* OxyCODONE Immed Rel 5 MG TABLET PO SCH ×4 (09:05→21:56)
[2017-12-17] MEDS: traZODone 50 MG TABLET PO SCH (21:56)
[2017-12-18 04:17] LABS: Basophils % 0.3 %; Immature Granulocytes % 0.3 % (0-4); Red Cell Distribution Width 15.4 % (11.5-14.5)
[2017-12-18 04:19] LABS: Eosinophils # 0.1 K/mcL (0.0-0.6); Eosinophils % 1.4 %; Hemoglobin 10.7 g/dL (12.9-16.9); Immature Platelets 10.4 % (1.1-6.1); Lymphocytes # 1.2 K/mcL (0.6-4.6); Lymphocytes % 32.1 %; Mean Corpuscular HGB Conc 35.7 g/dL (31.6-35.5); Mean Corpuscular Hemoglobin 35.1 pg (28.0-33.3); Mean Corpuscular Volume 98.4 fL (83.0-100.0); Monocytes # 0.3 K/mcL (0.0-1.3); Neutrophils # 2.1 K/mcL (1.6-8.9); Nucleated Red Blood Cells 0.6 /100 WBC (0); Red Blood Count 3.05 M/mcL (4.19-5.50); Segmented Neutrophils % 57.9 %
[2017-12-18 04:34] LABS: Platelet Count 63 K/mcL (140-400)
[2017-12-18 04:38] LABS: BUN/Creatinine Ratio 31 (6-26); Blood Urea Nitrogen 27 mg/dL (8-23); Calcium 7.9 mg/dL (8.6-10.3); Carbon Dioxide 21 mEq/L (23-29); Chloride 116 mEq/L (98-107); Glucose 123 mg/dL (70-105); Osmolality,Calculated 290 (280-300); Potassium 4.9 mEq/L (3.5-5.1); Sodium 137 mEq/L (136-145); eGFR For African Americans > 60 (> 60); eGFR For Non-African Americans > 60 (> 60)
[2017-12-18 04:40] LABS: Platelet Estimate Decreased (Normal); Reactive Lymphocytes Present (Not Present)
[2017-12-18] MEDS: Cefepime HCl 1,000 MG in Water for inj. (sterile) 20 ML 10 ML IVP SCH ×2 (05:52→18:04)
[2017-12-18] MEDS: *HR* Heparin 5,000 UNIT/ML VIAL SQ SCH ×2 (06:00→18:03)
--- NOTE | 2017-12-18 07:59 | Internal Med Progress Note ---
Date of Encounter: 12/18/17 Time of Encounter: 07:57 - Assessment and plan (1) Atrial flutter Current Visit: Yes Status: Acute Assessment and plan: A flutter with RVR possibly secondary to dehydration and UTI Patient was hypotensive at [place] [id number] Score is 4, prior to D/C further discussion should be had with patient in regards of anticoagulation. - continue home metoprolol, ASA may discontinue Cefepime day #2 IVF Qualifiers: Qualified Code(s): I48.92 - Unspecified atrial flutter (2) Thrombocytopenia Current Visit: Yes Status: Chronic Assessment and plan: Pancytopenia with neutropenia of 0.7 neutropenia is resolved UA showed possible UTI was started on Cefepime, culture pending (3) Hyponatremia Current Visit: Yes Status: Chronic Assessment and plan: Na was 126, most likely secondary to dehydration/poor oral intake. resolved IVF (4) HTN (hypertension) Current Visit: Yes Status: Chronic Assessment and plan: stable Qualifiers: Hypertension type: essential hypertension Qualified Code(s): I10 - Essential (primary) hypertension (5) CAD (coronary artery disease) Current Visit: Yes Status: Chronic Assessment and plan: previous hx of CAD. continue asa. Qualifiers: Coronary Disease-Associated Artery/Lesion type: [place] artery [place] vs. 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 Samm Cedillo. Stage 4 Right tonsil initially diagnosed 08/28/16 complete ctuximab on 01/12. Radiation treatment 10/29/16-12/20/2016 (7) Protein-calorie malnutrition, severe Current Visit: Yes Status: Chronic Assessment and plan: Patient is cachectic appearing. marinol (8) COPD (chronic obstructive pulmonary disease) Current Visit: Yes Status: Chronic Assessment and plan: currently stable Qualifiers: COPD type: unspecified COPD Qualified Code(s): J44.9 - Chronic obstructive pulmonary disease, unspecified (9) Dehydration Current Visit: Yes Status: Acute Assessment and plan: most likely the underlying cause for patients symptoms. Patient is elderly and frail, will gently rehydrate patient. U/A at [place] was suggestive of concentrated urine, and on exam patient is hypovolemic/dry appearing. - continue IVF (10) Acute kidney injury Current Visit: Yes Status: Acute Assessment and plan: Cr at [place] 1.62, most likely secondary to dehydration. (11) Cirrhosis Current Visit: Yes Status: Acute Assessment and plan: previously documented cirrhosis. Currently stable. AST mildly elevated at [place]. Qualifiers: Qualified Code(s): K74.60 - Unspecified cirrhosis of liver (12) Tobacco abuse Current Visit: Yes Status: Acute Assessment and plan: patient has heavy smoking hx. Patient not currently a smoker. (13) Pulmonary nodules Current Visit: Yes Status: Acute Assessment and plan: known hx of pulmonary nodules. (14) Congestive heart failure with preserved left ventricular function, NYHA class 1 Current Visit: Yes Status: Acute Assessment and plan: No exacerbation , Diastolic CHF last echo 05/2017 LVEF 60% (15) Urinary tract infection Current Visit: Yes Status: Acute Qualifiers: Urinary tract infection type: acute cystitis Hematuria presence: without hematuria Qualified Code(s): N30.00 - Acute cystitis without hematuria - Time Spent With Patient Total time spent is greater than 50% in coordination of care (as documented) at patient's floor/unit and/or counseling patient: - Subjective Interval history: Feeling less weak. Denies any chest pain or shortness of breath, no fevers, no nausea or vomiting, no diarrhea, no dysuria - Constitutional Vitals: Temp Pulse Resp BP Pulse Ox 97.8 F 54 16 106/51 97 12/18/17 07:09 12/18/17 07:09 12/18/17 07:09 12/18/17 07:09 12/18/17 07:09 General appearance: Present: cachectic, cooperative, A&O X 3, no acute distress - Head Head exam: Present: atraumatic, normocephalic - Eye Eye exam: Present: PERRL, conjuntiva pink, sclera anicteric Pupils: Present: PERRL - Neck Neck exam general surgery: Present: supple, trachea midline. Absent: lymphadenopathy - Respiratory Respiratory exam: Present: CTAB. Absent: accessory muscle use, rales, rhonchi, wheezes - Cardiovascular Cardiovascular exam: Present: RRR, +S1, +S2. Absent: diastolic murmur, gallop, rubs, systolic murmur - GI/Abdominal GI/Abdominal exam: Present: normal bowel sounds, soft, no peritoneal signs. Absent: distended, tenderness - Extremities Exam Extremities exam: Present: warm, radial pulses palpable and symmetrical. Absent : calf tenderness, cyanotic, pedal edema - Neurological Exam Neurological exam: Present: CN II-XII intact, oriented X3, no focal deficits. 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 Internal Medicine: Result - Labs CBC & Chem 7: 12/18/17 03:38 12/18/17 03:38 Labs: Short CBC 12/18/17 Range/Units 03:38 WBC 3.6 L (4.3-11.1) K/mcL Hgb 10.7 L (12.9-16.9) g/dL Hct 30.0 L (37.5-50.1) % Plt Count 63 L (140-400) K/mcL Neutrophils # 2.1 (1.6-8.9) K/mcL BMP 12/18/17 03:38 Sodium 137 Potassium 4.9 D Chloride 116 H Carbon Dioxide 21 L BUN 27 H Creatinine 0.86 Glucose 123 H Calcium 7.9 L Cardiac Enzymes 12/17/17 Range/Units 09:59 Troponin I 0.04 H* (< 0.04) ng/mL - ABG Interpretation ABG results: PT/INR, D-dimer PT 11.3 Seconds (9.4-12.1) 12/17/17 04:04 Consult Discharge Plan - Plan [facility]errals: [facility] [Primary Care Provider] -
[2017-12-18] MEDS: Pregabalin 75 MG CAPSULE PO SCH ×2 (10:18→21:24)
[2017-12-18] MEDS: *HR* OxyCODONE Immed Rel 5 MG TABLET PO SCH ×4 (10:19→21:24)
[2017-12-18] MEDS: Metoprolol XL (24 HR) Succ 25 MG TAB.ER.24H PO SCH (10:19)
[2017-12-18] MEDS: tiZANidine 4 MG TABLET PO SCH ×3 (10:20→21:24)
[2017-12-18] MEDS: Thiamine (B-1) 100 MG TABLET PO SCH ×2 (10:21→21:24)
[2017-12-18] MEDS: Multivit/Ca/Min/Fe/FA 1 TAB TABLET PO SCH (10:21)
[2017-12-18] MEDS: Aspirin Enteric Coated 81 MG Tablet PO SCH (10:21)
[2017-12-18] MEDS ORDERED: Ondansetron 4 MG/2 ML VIAL IVP PRN (19:59)
[2017-12-18] MEDS ORDERED: Metoclopramide 10 MG/2 ML VIAL IVP PRN (21:13)
[2017-12-18] MEDS: traZODone 50 MG TABLET PO SCH (21:24)
[2017-12-18] MEDS: 0.9 % Sodium Chloride 1,000 ML IVC SCH (22:34)
[2017-12-19] MEDS: *HR* Heparin 5,000 UNIT/ML VIAL SQ SCH (06:14)
[2017-12-19] MEDS: Cefepime HCl 1,000 MG in Water for inj. (sterile) 20 ML 10 ML IVP SCH (06:15)
[2017-12-19] MEDS: Multivit/Ca/Min/Fe/FA 1 TAB TABLET PO SCH (08:45)
[2017-12-19] MEDS: tiZANidine 4 MG TABLET PO SCH (08:45)
[2017-12-19] MEDS: Thiamine (B-1) 100 MG TABLET PO SCH (08:46)
[2017-12-19] MEDS: *HR* OxyCODONE Immed Rel 5 MG TABLET PO SCH (08:46)
[2017-12-19] MEDS: Metoprolol XL (24 HR) Succ 25 MG TAB.ER.24H PO SCH (08:46)
[2017-12-19] MEDS: Pregabalin 75 MG CAPSULE PO SCH (08:46)
[2017-12-19] MEDS: Aspirin Enteric Coated 81 MG Tablet PO SCH (08:46)
[2017-12-19] MEDS: 0.9 % Sodium Chloride 1,000 ML IVC SCH (08:52)
--- NOTE | 2017-12-19 09:27 | Discharge Summary ---
- NOTES TO OUTPATIENT PROVIDER Notes to Outpatient Provider: Follow-up with primary care physician within the next 7 days. Maintain good hydration. Continue Marinol to improve appetite. Follow-up with oncology within the next 2 weeks Date of Encounter: 12/19/17 Time of Encounter: 09:25 - Discharge Diagnosis (1) Atrial flutter Priority: Primary Status: Acute Assessment and Plan: A flutter with RVR possibly secondary to dehydration and UTI Qualifiers: Qualified Code(s): I48.92 - Unspecified atrial flutter (2) Thrombocytopenia Priority: Secondary Status: Chronic Assessment and Plan: Pancytopenia with neutropenia of 0.7, which increased to 2.1 the next day neutropenia resolved (3) Hyponatremia Priority: Primary Status: Chronic Assessment and Plan: Na was 126, most likely secondary to dehydration/poor oral intake. resolved (4) HTN (hypertension) Priority: Secondary Status: Chronic Qualifiers: Hypertension type: essential hypertension Qualified Code(s): I10 - Essential (primary) hypertension (5) CAD (coronary artery disease) Priority: Secondary Status: Chronic Qualifiers: Coronary Disease-Associated Artery/Lesion type: [place] artery [place] vs. transplanted heart: [place] heart Associated angina: without angina Qualified Code(s): I25.10 - Atherosclerotic heart disease of [place] coronary artery without angina pectoris (6) Right tonsillar squamous cell carcinoma Priority: Secondary Status: Chronic Assessment and Plan: previously treated, follow by [facility] Dr. Samm Cedillo. Stage 4 Right tonsil initially diagnosed 08/28/16 complete ctuximab on 01/12. Radiation treatment 10/29/16-12/20/2016 (7) Protein-calorie malnutrition, severe Priority: Secondary Status: Chronic (8) COPD (chronic obstructive pulmonary disease) Priority: Secondary Status: Chronic Qualifiers: COPD type: unspecified COPD Qualified Code(s): J44.9 - Chronic obstructive pulmonary disease, unspecified (9) Dehydration Priority: Primary Status: Acute (10) Acute kidney injury Priority: Primary Status: Acute Assessment and Plan: Cr at [place] 1.62, most likely secondary to dehydration. (11) Cirrhosis Priority: Secondary Status: Acute Qualifiers: Qualified Code(s): K74.60 - Unspecified cirrhosis of liver (12) Tobacco abuse Priority: Secondary Status: Acute (13) Pulmonary nodules Priority: Secondary Status: Acute (14) Congestive heart failure with preserved left ventricular function, NYHA class 1 Priority: Secondary Status: Acute Assessment and Plan: No exacerbation , Diastolic CHF last echo 05/2017 LVEF 60% (15) Urinary tract infection Priority: Primary Status: Acute Qualifiers: Urinary tract infection type: acute cystitis Hematuria presence: without hematuria Qualified Code(s): N30.00 - Acute cystitis without hematuria (16) Elevated troponin Priority: Secondary Status: Chronic Assessment and Plan: Secondary to demand ischemia Chronically elevated troponins Hospital course: Mr. Post is a 77 year old male w/ pmh of afib not on anticoagulation, throat cancer/right tonsillar squamous cell carcinoma status post chemotherapy and radiation, CAD, HTN presented with weakness and dizziness, and rapid heart rate. On 12/16/17, he started developing weakness and dizziness during the day which further progressed, which led him to go to [place] for evaluation. Per report, patient has previously had similar symptoms when he's been dehydrated which he states he's been outside more recently and has not increased his fluid intake. At [place], he was found to be in Aflutter w/ RVR and subsequently transferred to [place]. Is DNR/DNI/CCA. Patient was hypotensive at [place], the urine analysis in [place] showed 15 white blood cells, culture did not grow anything [id number] Score is 4, the patient prefers not to be on anticoagulation although than aspirin. Reality and was 1.62, improved down to 0.86 after receiving fluids. Hypokalemia was repleted, the patient was started on cefepime due to neutropenia of 0.7 that did not progress, he does not complain of any dysuria, cefepime was discontinued (received 3 days of antibiotics) Mainly, he complained of not being hungry at all, Marinol was started with good results. The patient feels stronger and prefers to be discharged today. Time spent discussing smoking cessation with patient: 3 to 10 minutes - Time Spent with Patient Total time spent providing and/or coordinating discharge services: Greater than 30 minutes (40 minutes) - Discharge Medications Prescriptions: Dronabinol [Marinol] 2.5 mg PO BIDLS 30 Days #60 capsule Metoprolol Succinate [Toprol Xl] 12.5 mg PO DAILY #30 tab.er.24h Oxycodone HCl [Oxaydo] 5 mg PO QID 5 Days #20 tablet.orl Home Medications: Thiamine (B-1) [Vitamin B-1] 100 mg PO BID 04/22/17 [History] Tramadol HCl [Ultram] 50 mg PO QID PRN 04/22/17 [History] Aspirin [Lo-Dose Aspirin EC] 81 mg PO DAILY 06/15/17 [History] Bisacodyl [Woman's Laxative] 5 mg PO Q48H 09/10/17 [History] Pregabalin [Lyrica] 75 mg PO BID 10/02/17 [History] traZODone [TraZODone] 50 mg PO HS 10/02/17 [History] Multivitamin [One Daily Essential] 1 tab PO DAILY 10/15/17 [History] Pantoprazole Sodium [Protonix] 40 mg PO DAILY 10/15/17 [History] Tizanidine HCl 2 mg PO TID 10/15/17 [History] Alendronate Sodium [Fosamax] 70 mg PO QWEEK #4 tab 12/12/17 [Rx] Calc/D3/Mag/Zn/Billy/Ketan/[place] [Calcium 600 mg Plus Vit D Tab] 1 each PO BID # 60 tablet 12/12/17 [Rx] Albuterol Sulfate [Ventolin Hfa] 2 puff IH QID PRN 12/17/17 [History] Furosemide [Lasix] 10 mg PO Q48H 12/17/17 [History] Ketotifen Fumarate [Zaditor] 1 drop BOTH EYES BID 12/17/17 [History] Lidocaine HCl [Lidocaine HCl Viscous] 5 ml PO Q2H PRN 12/17/17 [History] Lidocaine Patch [Lidoderm 5% patch] 2 patch TP DAILY 12/17/17 [History] Potassium Chloride [Klor-Con 10] 10 meq PO Q48H 12/17/17 [History] Dronabinol [Marinol] 2.5 mg PO BIDLS 30 Days #60 capsule 12/19/17 [Rx] Metoprolol Succinate [Toprol Xl] 12.5 mg PO DAILY #30 tab.er.24h 12/19/17 [Rx] Oxycodone HCl [Oxaydo] 5 mg PO QID 5 Days #20 tablet.orl 12/19/17 [Rx] Allergies/Adverse Reactions: 3 Allergy/AdvReac Type Severity Reaction Status Date / Time baclofen Allergy Rash Verified 12/02/17 11:41 cetuximab [From Erbitux] Allergy Hives Verified 12/02/17 11:41 Diclofenac Allergy Itching Verified 12/02/17 11:41 ibuprofen AdvReac Nausea Verified 12/02/17 11:41 Date of admission: 12/16/17 23:43 [facility] care physician: [facility] Consults: 12/17/17 01:49 Consult to Nutrition [CONS] Routine Comment: Consulting Provider: NUTRITION Reason for Dietary Consult: MST Score 12/17/17 12:13 Consult to [employer] [CONS] Routine Reason for SW Consult: per patient request; Donna already saw - Constitutional Vitals: Temp Pulse Resp BP Pulse Ox 98 F 62 16 110/52 92 12/19/17 07:07 12/19/17 07:07 12/19/17 07:07 12/19/17 07:07 12/19/17 07:07 General appearance: Present: cachectic, cooperative, A&O X 3, no acute distress Exam: Cachectic - Head Head exam: Present: atraumatic, normocephalic - Eye Eye exam: Present: PERRL, conjuntiva pink, sclera anicteric Pupils: Present: PERRL - Neck Neck exam general surgery: Present: supple, trachea midline. Absent: lymphadenopathy - Respiratory Respiratory exam: Present: CTAB. Absent: accessory muscle use, rales, rhonchi, wheezes - Cardiovascular Cardiovascular exam: Present: RRR, +S1, +S2. Absent: diastolic murmur, gallop, rubs, systolic murmur - GI/Abdominal GI/Abdominal exam: Present: normal bowel sounds, soft, no peritoneal signs. Absent: distended, tenderness - Extremities Exam Extremities exam: Present: warm, radial pulses palpable and symmetrical. Absent : calf tenderness, cyanotic, pedal edema - Neurological Exam Neurological exam: Present: CN II-XII intact, oriented X3, no focal deficits. 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
--- NOTE | 2017-12-19 09:37 | Physician Discharge Referral ---
Home Health/Hosp Referral Info Transfer to: Home Health Provider in Charge Post Discharge: PCP - Diagnosis (1) Atrial flutter Status: Acute (2) Thrombocytopenia Status: Chronic (3) Hyponatremia Status: Chronic (4) HTN (hypertension) Status: Chronic (5) CAD (coronary artery disease) Status: Chronic (6) Right tonsillar squamous cell carcinoma Status: Chronic (7) Protein-calorie malnutrition, severe Status: Chronic (8) COPD (chronic obstructive pulmonary disease) Status: Chronic (9) Dehydration Status: Acute (10) Acute kidney injury Status: Acute (11) Cirrhosis Status: Acute (12) Tobacco abuse Status: Acute (13) Pulmonary nodules Status: Acute (14) Congestive heart failure with preserved left ventricular function, NYHA class 1 Status: Acute (15) Urinary tract infection Status: Acute (16) Elevated troponin Status: Chronic - Respiratory Orders Smoking Cessation: Smoking cessation has been advised. For more information, call the [employer] Quit Line at 2-084-URGS-NOW. - Diet/Nutrition Diet/Nutrition Orders: Regular - Services Needed Following services are medically necessary services: Home Health Aide, Physical Therapy, Occupational Therapy Home Care Orders: Follow-up with primary care physician within the next 7 days. Maintain good hydration. Continue Marinol to improve appetite. Follow-up with oncology within the next 2 weeks - Transfer Medications Prescriptions: Dronabinol [Marinol] 2.5 mg PO BIDLS 30 Days #60 capsule Metoprolol Succinate [Toprol Xl] 12.5 mg PO DAILY #30 tab.er.24h Oxycodone HCl [Oxaydo] 5 mg PO QID 5 Days #20 tablet.orl Home Medications: Thiamine (B-1) [Vitamin B-1] 100 mg PO BID 04/22/17 [History] Tramadol HCl [Ultram] 50 mg PO QID PRN 04/22/17 [History] Aspirin [Lo-Dose Aspirin EC] 81 mg PO DAILY 06/15/17 [History] Bisacodyl [Woman's Laxative] 5 mg PO Q48H 09/10/17 [History] Pregabalin [Lyrica] 75 mg PO BID 10/02/17 [History] traZODone [TraZODone] 50 mg PO HS 10/02/17 [History] Multivitamin [One Daily Essential] 1 tab PO DAILY 10/15/17 [History] Pantoprazole Sodium [Protonix] 40 mg PO DAILY 10/15/17 [History] Tizanidine HCl 2 mg PO TID 10/15/17 [History] Alendronate Sodium [Fosamax] 70 mg PO QWEEK #4 tab 12/12/17 [Rx] Calc/D3/Mag/Zn/[place]illy/Ketan/[place] [Calcium 600 mg Plus Vit D Tab] 1 each PO BID # 60 tablet 12/12/17 [Rx] Albuterol Sulfate [Ventolin Hfa] 2 puff IH QID PRN 12/17/17 [History] Furosemide [Lasix] 10 mg PO Q48H 12/17/17 [History] Ketotifen Fumarate [Zaditor] 1 drop BOTH EYES BID 12/17/17 [History] Lidocaine HCl [Lidocaine HCl Viscous] 5 ml PO Q2H PRN 12/17/17 [History] Lidocaine Patch [Lidoderm 5% patch] 2 patch TP DAILY 12/17/17 [History] Potassium Chloride [Klor-Con 10] 10 meq PO Q48H 12/17/17 [History] Dronabinol [Marinol] 2.5 mg PO BIDLS 30 Days #60 capsule 12/19/17 [Rx] Metoprolol Succinate [Toprol Xl] 12.5 mg PO DAILY #30 tab.er.24h 12/19/17 [Rx] Oxycodone HCl [Oxaydo] 5 mg PO QID 5 Days #20 tablet.orl 12/19/17 [Rx] Allergies/Adverse Reactions: 3 Allergy/AdvReac Type Severity Reaction Status Date / Time baclofen Allergy Rash Verified 12/02/17 11:41 cetuximab [From Erbitux] Allergy Hives Verified 12/02/17 11:41 Diclofenac Allergy Itching Verified 12/02/17 11:41 ibuprofen AdvReac Nausea Verified 12/02/17 11:41 Certification: Further, I certify that my clinical findings support that this patient is homebound (i.e. absences from home require considerable and taxing effort and are for medical reasons or temple services or infrequently or short duration when for other reasons) because: Homebound Reason: Patient requires assistance of a person or device to safely leave home Attestation: My signature below is to certify that this patient is under my care and that I, or nurse practitioner, or a physician's lab assistant working with me, has a face-to -face encounter with this patient.
[2017-12-19 10:56] VITALS: BP 112/63
== END 2017-12-19 14:40 | disposition home health service (06) | DRG 308 ==
LOC: 2NENU 23:43
PROVIDERS: ADMIT Family Medicine; ATTEND Family Medicine